=== PATIENT | male | born 1945 | race Two or more races ===

== ENCOUNTER → 2018-09-14 | Outpatient (CLI) | payer MEDICARE, BC | END | disposition home or self-care (01) | LOC: RT 10:05 | PROVIDERS: ATTEND Internal Medicine Pulmonary Disease | DX: J44.9 Chronic obstructive pulmonary disease, unspecified (principal) | CPT/HCPCS: 36600; 82805 ==

== ENCOUNTER → 2018-10-24 | Outpatient (CLI) | payer MEDICARE, BC ==
[~2018-10-24] MED LIST: ALBUTEROL SULF 2.5 MG/0.5ML(0.5%) NEB SOLN ONE
== END | disposition home or self-care (01) ==
LOC: RT 08:15
PROVIDERS: ATTEND Internal Medicine Pulmonary Disease
DX: J44.9 Chronic obstructive pulmonary disease, unspecified (principal)
CPT/HCPCS: 94060; J7611

== ENCOUNTER 2019-02-03 09:00 | Inpatient (IN) | payer MEDICARE, BC ==
[~2019-02-03] VITALS: Ht 180.3 cm; Wt 84.4 kg
[2019-02-03 09:42] LABS: White Blood Cell 26.5 10^3/uL (4.4-10.8)
[2019-02-03 09:44] LABS: Hematocrit 40.8 % (41.0-53.0); Hemoglobin 13.6 g/dL (13.5-17.5); Mean Corpuscular Hemoglobin 31.3 pg (28.0-32.0); Mean Corpuscular Hgb Conc. 33.4 g/dL (32.0-36.0); Mean Corpuscular Volume 93.8 fL (80.0-100.0); Platelet Count (auto) 537 10^3/uL (140-450); Red Blood Cells 4.35 10^6/uL (4.5-5.90); Red Cell Distribution Width 13.6 % (11.8-14.3)
[2019-02-03 09:46] LABS: Band Neutrophils % (manual) 0; Basophils % (manual) 0 (0.0-2.0); Blast Cells 0; Myelocytes % 0; Promyelocytes % 0; Reactive Lymphocytes 0
[2019-02-03 09:57] LABS: Alanine Aminotransferase 41 U/L (16-61); Albumin 2.6 g/dL (3.4-5.0); Anion Gap 12 (5-15); Aspartate Aminotransferase 26 U/L (15-37); BUN/Creatinine Ratio 19.2; Blood Urea Nitrogen 24 mg/dL (7-18); Calcium 9.1 mg/dL (8.5-10.1); Carbon Dioxide 21 mmol/L (21-32); Chloride 98 mmol/L (98-107); GFR African American 73 mL/min; GFR Non-African American 60 mL/min; Glucose 94 mg/dL (74-106); Potassium 4.6 mmol/L (3.5-5.1); Sodium 131 mmol/L (136-145)
[2019-02-03] MEDS ORDERED: ASPirin 81 mg TAB PO ONE (10:00)
[2019-02-03] MEDS ORDERED: PIPERACILLIN-TAZOB 3.375GM 100 ML IV ONE (10:00)
[2019-02-03 10:01] LABS: Eosinophils % (manual) 1 (0-7); Lymphocytes % (manual) 6 (10.0-50.0); Metamyelocytes % 1; Monocytes % (manual) 4 (0-12)
[2019-02-03 10:02] LABS: Alkaline Phosphatase 99 U/L (45-117); Bilirubin, Total 0.7 mg/dL (0.2-1.0); Total Protein 7.8 g/dL (6.4-8.2)
[2019-02-03 10:16] LABS: INR 1.48 (0.9-1.15)
[2019-02-03] MEDS ORDERED: PROMETHAZINE HCL 25 MG/ML 1ML IV PRN (13:30)
[2019-02-03] MEDS ORDERED: DEXTROSE (50%) 50ML SYRG IV PRN (13:30)
[2019-02-03] MEDS ORDERED: NITROGLYCERIN 0.4 MG SL TAB SL PRN (13:30)
[2019-02-03] MEDS ORDERED: MORPHINE SULF INJ 2 MG/ML SYRINGE 1ML IV PRN ×2 (13:30→16:00)
[2019-02-03] MEDS ORDERED: MORPHINE SULFATE 4 MG/ML SYR/VIAL IV PRN (13:30)
[2019-02-03] MEDS ORDERED: cefTRIAXone 1GM/50ML D5W 50 ML IV ONE (13:30)
[2019-02-03 13:38] VITALS: BP 124/60
[2019-02-03] MEDS: SODIUM CHLORIDE 0.9% 1,000 ML IV SCH ×2 (14:49→23:54)
[2019-02-03] MEDS: metroNIDAZOLE 500MG/100ML 100 ML IV SCH ×2 (15:02→21:36)
--- NOTE | 2019-02-03 15:20 | NUR ---
Telemetry admit from ER GIOVANI DICKERSON admitted to Telemetry unit after SBAR received. Patient oriented to LILLIANA SHULTZRN primary RN, unit, room, bed, and unit policies regarding patient care and visiting hours. Patient now on continuous telemetry monitoring, tele box # 37 and telemetry reading on arrival to unit is NSR 82BPM. Patient placed on bedside oxygen 2L n/c, weighed by bedscale and encouraged to call if they need something with call light within reach. Bed in low/locked position, bed rails up x2. All questions and concerns addressed, patient verbalized understanding.
[2019-02-03] MEDS ORDERED: METO25TA5 PO (16:03)
[2019-02-03] MEDS ORDERED: GABA300C10 PO (16:03)
[2019-02-03] MEDS ORDERED: ROSU10TA16 PO (16:03)
[2019-02-03] MEDS ORDERED: OMEP20TA PO (16:03)
[2019-02-03] MEDS ORDERED: CHOL20007 PO (16:03)
[2019-02-03] MEDS ORDERED: TAMS0.4C36 PO (16:03)
[2019-02-03] MEDS ORDERED: PAR20T PO (16:03)
[2019-02-03] MEDS ORDERED: LISI-706 PO (16:03)
[2019-02-03] MEDS ORDERED: IPRIH IN (16:03)
[2019-02-03] MEDS ORDERED: METF-370 PO (16:03)
[2019-02-03] MEDS: InsuLIN REG 1unit/0.01ml Soln (100units/ml) SC SCH ×2 (16:45→21:38)
[2019-02-03] MEDS: traMADol HCL 50 MG TAB PO PRN (16:53)
[2019-02-03 17:00] VITALS: BP 131/52
[2019-02-03] MEDS: ACCU-CHEK COMFORT CURVE STRIP VI SCH ×2 (17:00→21:39)
[2019-02-03] MEDS ORDERED: ALBU108A5 IN (18:09)
[2019-02-03] MEDS ORDERED: IPRAAER6 IN (18:09)
[2019-02-03] MEDS: ALBUTEROL SULF 2.5 MG/0.5ML(0.5%) NEB SOLN NEB PRN (19:29)
[2019-02-03] MEDS: ACETAMINOPHEN 500 MG TAB PO PRN (20:10)
[2019-02-03] MEDS: TEMAZEPAM 15 MG CAP PO PRN (21:39)
[2019-02-03 22:19] VITALS: BP 129/83
[2019-02-04] MEDS: ALBUTEROL SULF 2.5 MG/0.5ML(0.5%) NEB SOLN NEB PRN ×2 (03:50→15:54)
[2019-02-04 05:24] VITALS: BP 140/67
[2019-02-04 06:13] LABS: Basophils # (auto) 0 uL; Basophils % (auto) 0.2 % (0.0-2.0); Eosinophils # (auto) 0.2 uL; Hematocrit 35.8 % (41.0-53.0); Hemoglobin 12.1 g/dL (13.5-17.5); Lymphocytes # (auto) 1.5 uL; Lymphocytes % (auto) 8.3 % (10.0-50.0); Mean Corpuscular Hgb Conc. 33.9 g/dL (32.0-36.0); Mean Corpuscular Volume 94.2 fL (80.0-100.0); Monocytes # (auto) 1.7 uL; Monocytes % (auto) 9.5 % (0.0-12.0); Neutrophils # (auto) 14.8 uL; Platelet Count (auto) 500 10^3/uL (140-450); Red Cell Distribution Width 13.4 % (11.8-14.3); White Blood Cell 18.3 10^3/uL (4.4-10.8)
[2019-02-04] MEDS: metroNIDAZOLE 500MG/100ML 100 ML IV SCH ×3 (06:13→21:28)
[2019-02-04] MEDS: InsuLIN REG 1unit/0.01ml Soln (100units/ml) SC SCH ×4 (06:14→21:28)
[2019-02-04] MEDS: ACCU-CHEK COMFORT CURVE STRIP VI SCH ×4 (06:14→21:28)
[2019-02-04] MEDS: traMADol HCL 50 MG TAB PO PRN ×3 (06:15→21:30)
[2019-02-04 06:20] LABS: Albumin 2.2 g/dL (3.4-5.0); BUN/Creatinine Ratio 18.5; Calcium 8.3 mg/dL (8.5-10.1); Potassium 4.2 mmol/L (3.5-5.1)
[2019-02-04 06:23] LABS: Bilirubin, Total 0.6 mg/dL (0.2-1.0); Total Protein 6.6 g/dL (6.4-8.2)
[2019-02-04 09:00] VITALS: BP 119/52
[2019-02-04] MEDS: SODIUM CHLORIDE 0.9% 1,000 ML IV SCH ×2 (09:00→11:00)
[2019-02-04] MEDS: cefTRIAXone 1GM/50ML D5W 50 ML IV SCH (09:19)
[2019-02-04] MEDS: PANTOPRAZOLE 40 MG TAB PO SCH (11:00)
[2019-02-04] MEDS: ALBUTEROL SULF 2.5 MG/0.5ML(0.5%) NEB SOLN NEB SCH ×2 (12:00→18:48)
[2019-02-04] MEDS: IPRATROPIUM BROM 0.5 MG/2.5ML INH SOL NEB SCH ×2 (12:00→18:48)
[2019-02-04] MEDS: PARoxetine 20 MG TAB PO SCH (12:53)
[2019-02-04] MEDS: GABAPENTIN 300 MG CAP PO SCH (12:53)
[2019-02-04 13:00] VITALS: BP 130/83
--- NOTE | 2019-02-04 15:55 | NUR ---
Respiratory note: PATIENT SEEN FOR PRN TX. HE WAS COMPLAINING OF SOB; PRN MED-NEB ADMINISTERED AT THIS TIME.
[2019-02-04 17:00] VITALS: BP 139/73
[2019-02-04] MEDS: TAMSULOSIN HYDROCHLORIDE 0.4 MG CAP PO SCH (18:44)
--- NOTE | 2019-02-04 20:20 | NUR ---
RECEIVE IN BED IS TRYING TO GET COMFORTABLE N WITH MINIMAL SOB IS ON OXYGEN
[2019-02-04] MEDS: TEMAZEPAM 15 MG CAP PO PRN (21:29)
[2019-02-04 22:34] VITALS: BP 130/57
[2019-02-05] MEDS: SODIUM CHLORIDE 0.9% 1,000 ML IV SCH (01:30)
[2019-02-05 05:00] VITALS: BP 131/71
[2019-02-05] MEDS: metroNIDAZOLE 500MG/100ML 100 ML IV SCH ×3 (05:42→21:33)
[2019-02-05] MEDS: ALBUTEROL SULF 2.5 MG/0.5ML(0.5%) NEB SOLN NEB SCH ×3 (06:17→19:23)
[2019-02-05] MEDS: IPRATROPIUM BROM 0.5 MG/2.5ML INH SOL NEB SCH ×3 (06:17→19:24)
[2019-02-05] MEDS: InsuLIN REG 1unit/0.01ml Soln (100units/ml) SC SCH ×4 (06:30→21:34)
[2019-02-05] MEDS: ACCU-CHEK COMFORT CURVE STRIP VI SCH ×4 (06:30→21:34)
[2019-02-05 07:05] LABS: Basophils # (auto) 0.1 uL; Eosinophils # (auto) 0.2 uL; Hemoglobin 11.6 g/dL (13.5-17.5)
[2019-02-05 07:08] LABS: Basophils % (auto) 0.6 % (0.0-2.0); Eosinophils % (auto) 1.2 % (0.0-7.0); Hematocrit 34.3 % (41.0-53.0); Lymphocytes % (auto) 7.8 % (10.0-50.0); Mean Corpuscular Hemoglobin 31.7 pg (28.0-32.0); Mean Corpuscular Hgb Conc. 33.8 g/dL (32.0-36.0); Mean Corpuscular Volume 93.6 fL (80.0-100.0); Monocytes # (auto) 1.1 uL; Monocytes % (auto) 8.6 % (0.0-12.0); Neutrophils # (auto) 10.6 uL; Neutrophils % (auto) 81.8 % (37.0-80.0); Platelet Count (auto) 464 10^3/uL (140-450); Red Blood Cells 3.67 10^6/uL (4.5-5.90); Red Cell Distribution Width 13.6 % (11.8-14.3)
[2019-02-05 07:23] LABS: BUN/Creatinine Ratio 14.6; Calcium 8.7 mg/dL (8.5-10.1); Potassium 4.1 mmol/L (3.5-5.1)
--- NOTE | 2019-02-05 08:10 | NUR ---
Opening Shift Note received report on the patient. Awake lying in bed. Patient shows no signs of distress at this time. Discussed plan of care with the patient. Bed in lowest position, side rails upX2, and call light is within reach.
[2019-02-05] MEDS: cefTRIAXone 1GM/50ML D5W 50 ML IV SCH (09:38)
[2019-02-05] MEDS: PANTOPRAZOLE 40 MG TAB PO SCH (09:39)
[2019-02-05] MEDS: PARoxetine 20 MG TAB PO SCH (09:39)
[2019-02-05] MEDS: GABAPENTIN 300 MG CAP PO SCH (09:39)
[2019-02-05] MEDS: ACETAMINOPHEN 500 MG TAB PO PRN ×2 (09:49→20:13)
[2019-02-05 09:51] VITALS: BP 120/74
[2019-02-05] MEDS ORDERED: ACETAMINOPHEN 500 MG TAB PO PRN (11:15)
--- NOTE | 2019-02-05 11:54 | NUR ---
IV Patient pulled IV out.
--- NOTE | 2019-02-05 11:56 | NUR ---
IV insertion IV access obtained, via clean sterile technique by inserting 22 gauge catheter at left forearm after 1 attempt. IV secured properly. No trauma to site. Patient tolerated well.
[2019-02-05] MEDS ORDERED: LISINOPRIL 10 MG TAB PO ONE (12:45)
[2019-02-05] MEDS ORDERED: ASPirin 81 mg TAB PO ONE (12:45)
[2019-02-05 13:02] LABS: Magnesium 2.1 mg/dL (1.6-2.6)
[2019-02-05 14:19] VITALS: BP 125/70
[2019-02-05 16:38] VITALS: BP 135/94
[2019-02-05] MEDS: TAMSULOSIN HYDROCHLORIDE 0.4 MG CAP PO SCH (17:45)
--- NOTE | 2019-02-05 19:45 | NUR ---
ASSUMED CARE, PT. AWAKE, NO C/O PAIN, NO SOB.
[2019-02-05] MEDS: ATORVASTATIN 20 MG TAB PO SCH (21:33)
[2019-02-05 22:57] VITALS: BP 140/74
[2019-02-06] VITALS (7 sets, daily range): BP systolic 113–137; BP diastolic 69–87
[2019-02-06] MEDS: metroNIDAZOLE 500MG/100ML 100 ML IV SCH ×3 (05:33→21:18)
[2019-02-06] MEDS: ALBUTEROL SULF 2.5 MG/0.5ML(0.5%) NEB SOLN NEB SCH ×3 (05:48→18:49)
[2019-02-06] MEDS: IPRATROPIUM BROM 0.5 MG/2.5ML INH SOL NEB SCH ×3 (05:48→18:49)
[2019-02-06 06:03] LABS: Basophils # (auto) 0.1 uL; Eosinophils # (auto) 0.3 uL; Eosinophils % (auto) 2.3 % (0.0-7.0); Hemoglobin 12.7 g/dL (13.5-17.5); Lymphocytes # (auto) 1.3 uL; Lymphocytes % (auto) 10.5 % (10.0-50.0); Mean Corpuscular Hemoglobin 31.3 pg (28.0-32.0); Mean Corpuscular Hgb Conc. 33.5 g/dL (32.0-36.0); Mean Corpuscular Volume 93.7 fL (80.0-100.0); Monocytes # (auto) 1.1 uL; Monocytes % (auto) 8.7 % (0.0-12.0); Neutrophils # (auto) 9.6 uL; Neutrophils % (auto) 77.5 % (37.0-80.0); Nucleated Red Blood Cells % 0.1 %; Platelet Count (auto) 598 10^3/uL (140-450); Red Blood Cells 4.05 10^6/uL (4.5-5.90); Red Cell Distribution Width 13.6 % (11.8-14.3); White Blood Cell 12.4 10^3/uL (4.4-10.8)
[2019-02-06] MEDS: InsuLIN REG 1unit/0.01ml Soln (100units/ml) SC SCH ×4 (06:05→21:19)
[2019-02-06] MEDS: ACCU-CHEK COMFORT CURVE STRIP VI SCH ×4 (06:05→21:19)
[2019-02-06 06:21] LABS: Calcium 8.7 mg/dL (8.5-10.1); Potassium 4.4 mmol/L (3.5-5.1)
[2019-02-06 06:24] LABS: BUN/Creatinine Ratio 14.6
--- NOTE | 2019-02-06 07:30 | NUR ---
Open Shift Note Received report on patient, awake and sitting up in bed. Discussed POC with patient and plans for stress test. Patient aware they are to remain NPO. Bed in lowest locked position, side rails up x2 and call light within reach. Will continue to monitor.
[2019-02-06] MEDS ORDERED: ADENOSINE 73 MG in GIVE UN-DILUTED 0 ML IV STA (08:28)
[2019-02-06] MEDS ORDERED: traMADol HCL 50 MG TAB PO PRN (11:45)
[2019-02-06] MEDS: cefTRIAXone 1GM/50ML D5W 50 ML IV SCH (12:24)
[2019-02-06] MEDS: ASPirin 81 mg TAB PO SCH (12:36)
[2019-02-06] MEDS: PARoxetine 20 MG TAB PO SCH (12:36)
[2019-02-06] MEDS: PANTOPRAZOLE 40 MG TAB PO SCH (12:36)
[2019-02-06] MEDS: GABAPENTIN 300 MG CAP PO SCH (12:36)
[2019-02-06] MEDS: traMADol HCL 50 MG TAB PO PRN ×2 (12:38→21:20)
[2019-02-06] MEDS: LISINOPRIL 10 MG TAB PO SCH (12:38)
--- NOTE | 2019-02-06 14:53 | NUR ---
Nutrition Assessment Notes please see attached link for complete assessment Est. Needs BW 86 [id number] kcal (23-25 kcal/kgBW), 86-103 gms pro (1.0-1.2 gms/kgBW r/t severe hypoalb). Will continue to monitor pertinent labs and reassess nutrient need prn Addendum: 02/06/19 at [address] Amended: Links added.
--- NOTE | 2019-02-06 15:31 | NUR ---
Son Will Business Process Manager Tomorrow Patient's son Rachid stated he will take a half day of work and come pick up driver the patient in the later afternoon "around 1 or 2".
--- NOTE | 2019-02-06 15:50 | NUR ---
PT ASKED TO SKIP P.T TODAY. JETHRO HCAVEZ WAS NOTIFIED. Addendum: 02/06/19 at 1551 by LANDY PETERSON PTT Amended: Links added.
--- NOTE | 2019-02-06 16:19 | NUR ---
assessment Patient is a 73 year old male who is alert and oriented. Patients cognitive abilities are intact. Prior to admission patient lived home with his and functioned independently. Patient informed me he is able to care for his own ADLs. Per patient he will return home with his brother and sister in law on discharge. Patient informed me until his returns home from her cruise to [place] she will stay with his in laws. Patient has a rollator and home 02 for home use. Patients PCP is Dr Mccall. Patient has refused SNF and home health. I informed patient he has a right to speak to a manager social services regarding all care. I informed patient he has a right to participate in any and all discharge planning. Patient has a POA and advanced directive. Patient verbalized understanding and agreed to discharge plan. Addendum: 02/06/19 at 1622 by Natalie HANKINS Amended: Links added.
[2019-02-06] MEDS: TAMSULOSIN HYDROCHLORIDE 0.4 MG CAP PO SCH (18:20)
--- NOTE | 2019-02-06 19:45 | NUR ---
assumed care, pt. awake, no c/o headache at this time, no sob.
[2019-02-06] MEDS: ATORVASTATIN 20 MG TAB PO SCH (21:19)
[2019-02-07 05:00] VITALS: BP 135/77
[2019-02-07] MEDS: metroNIDAZOLE 500MG/100ML 100 ML IV SCH ×2 (05:31→13:55)
[2019-02-07] MEDS: InsuLIN REG 1unit/0.01ml Soln (100units/ml) SC SCH ×2 (06:11→11:25)
[2019-02-07] MEDS: IPRATROPIUM BROM 0.5 MG/2.5ML INH SOL NEB SCH ×2 (06:11→12:12)
[2019-02-07] MEDS: ALBUTEROL SULF 2.5 MG/0.5ML(0.5%) NEB SOLN NEB SCH ×2 (06:11→12:12)
[2019-02-07] MEDS: ACCU-CHEK COMFORT CURVE STRIP VI SCH ×2 (06:12→11:25)
--- NOTE | 2019-02-07 07:45 | NUR ---
Patient sitting in bed, awake, oriented x4, no acute distress noted. Patient stated he's going home today, his son will pick him up today between 1:00 pm to 2:00 pm today. Waiting for MD to come over to see the patient.
[2019-02-07] MEDS: cefTRIAXone 1GM/50ML D5W 50 ML IV SCH (08:17)
[2019-02-07 09:00] VITALS: BP 120/61
[2019-02-07] MEDS: ASPirin 81 mg TAB PO SCH (09:11)
[2019-02-07] MEDS: GABAPENTIN 300 MG CAP PO SCH (09:11)
[2019-02-07] MEDS: PARoxetine 20 MG TAB PO SCH (09:12)
[2019-02-07] MEDS: PANTOPRAZOLE 40 MG TAB PO SCH (09:12)
[2019-02-07] MEDS: LISINOPRIL 10 MG TAB PO SCH (09:12)
--- NOTE | 2019-02-07 10:50 | NUR ---
Patient refused Physical Therapy. Walker from home at bedside.
--- NOTE | 2019-02-07 11:16 | NUR ---
PATIENT REFUSED PHYSICAL THERAPY TODAY. JETHRO SALVADOR WAS NOTIFIED. Addendum: 02/07/19 at 1117 by LANDY PETERSON PTT Amended: Links added.
--- NOTE | 2019-02-07 11:30 | NUR ---
Patient in his civilian clothes, stated his son is on his way to coke over. Patient made aware the doctor is already at the hospital. Waiting for the MD to come over. Addendum: 02/07/19 at 1145 by Samantha Srinivasan RN son on his way to come over
--- NOTE | 2019-02-07 12:49 | NUR ---
Patient asked where is the doctor, stated he's ready to go home. Son at bedside. Explained to patient and son that the doctor is attending to an emergency situation at this time. Patient willing to wait for the doctor to come over.
[2019-02-07 13:32] VITALS: BP 120/61
--- NOTE | 2019-02-07 13:41 | NUR ---
Three inhalers returned to patient. Patient signed the POM form. Son at bedside. Informed the patient the discharge papers are getting prepared.
--- NOTE | 2019-02-07 14:07 | NUR ---
Discharge instructions given as ordered. Encourage to follow up with PMD as instructed. All questions and concerns addressed. Patient verbalized understanding. Medication reconciliation form completed and copy given to patient. Home medications held in Pharmacy returned to patient. IV removed with catheter intact, pressure dressing applied. Telemetry unit returned to ICU. Patient taken to vehicle via wheelchair with all personal belongings (including three inhalers, front wheel walker), accompanied by staff and family member. No distress noted at time of departure.
== END 2019-02-07 14:10 | disposition home or self-care (01) | DRG 872 ==
LOC: ER 09:00 → OVERFLOW 09:01 → CENTRAL 15:11 → TELE-CENTR 16:35
PROVIDERS: ADMIT Internal Medicine; ATTEND Internal Medicine
DX: A41.9 Sepsis, unspecified organism (principal); D68.9 Coagulation defect, unspecified; J96.10 Chronic respiratory failure, unspecified whether with hypoxia or hypercapnia; E44.0 Moderate protein-calorie malnutrition; K57.32 Diverticulitis of large intestine without perforation or abscess without bleeding; J44.9 Chronic obstructive pulmonary disease, unspecified; N40.0 Benign prostatic hyperplasia without lower urinary tract symptoms; E78.5 Hyperlipidemia, unspecified; M16.12 Unilateral primary osteoarthritis, left hip; I10 Essential (primary) hypertension; K76.0 Fatty (change of) liver, not elsewhere classified; E11.42 Type 2 diabetes mellitus with diabetic polyneuropathy; Z90.89 Acquired absence of other organs; Z87.440 Personal history of urinary (tract) infections; Z90.49 Acquired absence of other specified parts of digestive tract; Z83.3 Family history of diabetes mellitus; Z80.1 Family history of malignant neoplasm of trachea, bronchus and lung; Z80.42 Family history of malignant neoplasm of prostate; Z80.8 Family history of malignant neoplasm of other organs or systems; Z87.891 Personal history of nicotine dependence; Z82.3 Family history of stroke; Z79.899 Other long term (current) drug therapy; Z68.26 Body mass index [BMI] 26.0-26.9, adult
CPT/HCPCS: 36415; 71045; 74176; 76705; 78452; 80048; 80053; 80061; 82962; 83036; 83605; 83690; 83735; 83880; 84484; 85007; 85025; 85027; 85379; 85610; 85730; 87040; 93005; 93017; 93306; 94640; 99291; G0378; J0153; J0696; J2543; J3490

== ENCOUNTER 2021-10-18 01:57 | Inpatient (IN) | payer MEDICARE, BC ==
[~2021-10-18] VITALS: Ht 180.3 cm; Wt 74.7 kg
[~2021-10-18 01:57] MED LIST changes: +ALBU108A5 IN; -ALBUTEROL SULF 2.5 MG/0.5ML(0.5%) NEB SOLN ONE; +CHOL20007 PO; +GABA300C10 PO; +IPRAAER6 IN; +IPRIH IN; +LISI-706 PO; +METF-370 PO; +METO25TA5 PO; +OMEP20TA PO; +PAR20T PO; +ROSU10TA16 PO; +TAMS0.4C36 PO
[2021-10-18] MEDS ORDERED: IPRATROPIUM BROM 0.5 MG/2.5ML INH SOL NEB ONE (02:30)
[2021-10-18] MEDS ORDERED: DexAMETHasone SOD PHOS 10MG/1ML VIAL INJ IV ONE (02:30)
[2021-10-18] MEDS ORDERED: CEFEPIME 1GM/ 50ML 50 ML IV ONE (02:30)
[2021-10-18] MEDS ORDERED: MAGNESIUM SULFATE 1GM/100ML 100 ML IV ONE (02:30)
[2021-10-18] MEDS ORDERED: ACETAMINOPHEN 325 MG TAB PO ONE (02:30)
[2021-10-18] MEDS ORDERED: ALBUTEROL SULF 2.5 MG/0.5ML(0.5%) NEB SOLN NEB ONE (02:30)
[2021-10-18] MEDS ORDERED: VANCOMYCIN 1GM/250ML 250 ML IV ONE (02:30)
[2021-10-18] MEDS ORDERED: SODIUM CHLORIDE 0.9% 2,000 ML IV ONE (02:30)
[2021-10-18 03:17] LABS: Basophils # (auto) 0 10 ^3/uL (0-0.2); Basophils % (auto) 0.1 % (0.0-2.0); Eosinophils # (auto) 0.2 10 ^3/uL (0-0.8); Eosinophils % (auto) 1.8 % (0.0-7.0); Hematocrit 40.1 % (41.0-53.0); Hemoglobin 13.6 g/dL (13.5-17.5); Lymphocytes # (auto) 0.8 10 ^3/uL (0.4-5.4); Lymphocytes % (auto) 6.5 % (10.0-50.0); Mean Corpuscular Hemoglobin 31.7 pg (28.0-32.0); Mean Corpuscular Hgb Conc. 33.9 g/dL (32.0-36.0); Mean Corpuscular Volume 93.7 fL (80.0-100.0); Monocytes # (auto) 1.4 10 ^3/uL (0-1.3); Monocytes % (auto) 10.7 % (0.0-12.0); Neutrophils # (auto) 10.3 10 ^3/uL (1.6-8.6); Neutrophils % (auto) 80.9 % (37.0-80.0); Nucleated Red Blood Cells % 0.1 %; Red Blood Cells 4.28 10^6/uL (4.5-5.90); Red Cell Distribution Width 13.7 % (11.8-14.3); White Blood Cell 12.8 10^3/uL (4.4-10.8)
[2021-10-18 03:27] LABS: Albumin 3.7 g/dL (3.4-5.0); BUN/Creatinine Ratio 14.8; Calcium 8.6 mg/dL (8.5-10.1); Potassium 4.3 mmol/L (3.5-5.1)
[2021-10-18 03:30] LABS: Bilirubin, Total 0.2 mg/dL (0.2-1.0); Total Protein 7.1 g/dL (6.4-8.2)
[2021-10-18] MEDS ORDERED: ASPirin 81 mg TAB PO ONE (04:00)
[2021-10-18] MEDS ORDERED: ALBUTEROL SULF 2.5 MG/0.5ML(0.5%) NEB SOLN NEB PRN (09:45)
[2021-10-18] MEDS ORDERED: MORPHINE SULFATE INJ 2 MG/ml SYRG IV PRN (09:45)
[2021-10-18] MEDS ORDERED: NITROGLYCERIN 0.4 MG SL TAB SL PRN (09:45)
[2021-10-18] MEDS ORDERED: IPRATROPIUM BROM 0.5 MG/2.5ML INH SOL NEB PRN (09:45)
[2021-10-18] MEDS ORDERED: ENOXAPARIN SOD 80 MG/0.8ML SYRINGE SC ONE (09:45)
[2021-10-18 10:19] VITALS: BP 135/68
[2021-10-18] MEDS: AZITHROMYCIN 500MG/ 250ML 250 ML IV SCH (10:28)
[2021-10-18] MEDS: PANTOPRAZOLE 40 MG/10 ML VIAL INJ IV SCH (10:28)
[2021-10-18 10:50] LABS: Cholesterol 99 mg/dL (< 200); HDL Cholesterol 35 mg/dL (40-59); LDL Cholesterol 62 mg/dL (< 100); Triglycerides 109 mg/dL (< 150)
[2021-10-18] MEDS: ALBUTEROL SULF 2.5 MG/0.5ML(0.5%) NEB SOLN NEB SCH ×2 (11:18→19:50)
[2021-10-18] MEDS: IPRATROPIUM BROM 0.5 MG/2.5ML INH SOL NEB SCH ×2 (11:18→19:51)
[2021-10-18 11:20] LABS: Urine Bacteria FEW /hpf (None Seen); Urine Blood Negative /uL (Negative); Urine WBC 2 /hpf (0 - 3)
[2021-10-18] MEDS: methylPREDNISolone SOD SUCC 40 MG/ML VL IV SCH ×2 (14:11→22:32)
[2021-10-19] VITALS (8 sets, daily range): BP systolic 118–181; BP diastolic 60–90
[2021-10-19] MEDS: hydrALAZINE HCL 20 MG/ML VL IV PRN ×2 (00:04→10:07)
[2021-10-19] MEDS: methylPREDNISolone SOD SUCC 40 MG/ML VL IV SCH ×3 (06:25→22:16)
[2021-10-19] MEDS: IPRATROPIUM BROM 0.5 MG/2.5ML INH SOL NEB SCH ×3 (07:02→18:34)
[2021-10-19] MEDS: ALBUTEROL SULF 2.5 MG/0.5ML(0.5%) NEB SOLN NEB SCH ×3 (07:02→18:34)
[2021-10-19] MEDS ORDERED: ASPirin 81 mg TAB PO ONE (07:30)
[2021-10-19] MEDS ORDERED: ATORVASTATIN 20 MG TAB PO ONE (07:30)
[2021-10-19 09:02] LABS: Basophils # (auto) 0 10 ^3/uL (0-0.2); Basophils % (auto) 0.1 % (0.0-2.0); Eosinophils # (auto) 0 10 ^3/uL (0-0.8); Hematocrit 38.9 % (41.0-53.0); Lymphocytes # (auto) 0.9 10 ^3/uL (0.4-5.4); Lymphocytes % (auto) 9.1 % (10.0-50.0); Mean Corpuscular Hemoglobin 31.3 pg (28.0-32.0); Mean Corpuscular Hgb Conc. 33.6 g/dL (32.0-36.0); Mean Corpuscular Volume 93.2 fL (80.0-100.0); Monocytes # (auto) 1.2 10 ^3/uL (0-1.3); Monocytes % (auto) 11.8 % (0.0-12.0); Neutrophils # (auto) 7.9 10 ^3/uL (1.6-8.6); Red Blood Cells 4.17 10^6/uL (4.5-5.90); Red Cell Distribution Width 13.5 % (11.8-14.3)
[2021-10-19 09:14] LABS: Albumin 3.3 g/dL (3.4-5.0); Calcium 8.7 mg/dL (8.5-10.1); Magnesium 2.2 mg/dL (1.6-2.6); Potassium 3.8 mmol/L (3.5-5.1)
[2021-10-19] MEDS: cefTRIAXone 1GM/50ML D5W 50 ML IV SCH (09:14)
[2021-10-19 09:18] LABS: Bilirubin, Total 0.2 mg/dL (0.2-1.0); Total Protein 6.7 g/dL (6.4-8.2)
[2021-10-19] MEDS: FUROSEMIDE 20 MG/2 ML VIAL IV SCH ×2 (09:34→10:14)
[2021-10-19] MEDS ORDERED: GABA-339 PO (09:43)
[2021-10-19] MEDS ORDERED: ENOXAPARIN SOD 40 MG/0.4 ML SYRINGE SC SCH (10:00)
[2021-10-19] MEDS: PANTOPRAZOLE 40 MG/10 ML VIAL INJ IV SCH (10:14)
[2021-10-19] MEDS: AZITHROMYCIN 500MG/ 250ML 250 ML IV SCH (12:32)
[2021-10-19] MEDS ORDERED: AMIODARONE HCL 150 MG in D5W 5% 100 ML IV ONE (14:15)
[2021-10-19] MEDS ORDERED: ADENOSINE 6 MG/2 ML INJ IV ONE ×2 (14:15→14:30)
[2021-10-19] MEDS ORDERED: AMIODARONE HCL (50 MG/ ML) 3 ML VIAL IV ONE (14:18)
[2021-10-19] MEDS ORDERED: AMIODARONE 450mg/250ml AE 250 ML IV ONE (14:18)
[2021-10-19] MEDS ORDERED: METOPROLOL TARTRATE 1MG/1ML-5ML VIAL IV ONE ×2 (14:22→14:30)
[2021-10-19] MEDS ORDERED: AMIODARONE 450mg/250ml AE 250 ML IV SCH (14:30)
[2021-10-19 15:22] LABS: Basophils # (auto) 0 10 ^3/uL (0-0.2); Basophils % (auto) 0.2 % (0.0-2.0); Eosinophils # (auto) 0 10 ^3/uL (0-0.8); Hemoglobin 15.1 g/dL (13.5-17.5); Lymphocytes # (auto) 1.4 10 ^3/uL (0.4-5.4); Lymphocytes % (auto) 8.8 % (10.0-50.0); Mean Corpuscular Hemoglobin 30.2 pg (28.0-32.0); Mean Corpuscular Hgb Conc. 32.1 g/dL (32.0-36.0); Monocytes # (auto) 2.4 10 ^3/uL (0-1.3); Monocytes % (auto) 15.6 % (0.0-12.0); Neutrophils # (auto) 11.8 10 ^3/uL (1.6-8.6); Neutrophils % (auto) 75.4 % (37.0-80.0); Nucleated Red Blood Cells % 0.4 %; Red Blood Cells 5.01 10^6/uL (4.5-5.90); Red Cell Distribution Width 13.7 % (11.8-14.3); White Blood Cell 15.6 10^3/uL (4.4-10.8)
[2021-10-19 15:32] LABS: Potassium 4.1 mmol/L (3.5-5.1)
[2021-10-19 15:33] LABS: BUN/Creatinine Ratio 17.2
[2021-10-19 16:34] LABS: Magnesium 2.1 mg/dL (1.6-2.6)
[2021-10-19] MEDS ORDERED: ENOXAPARIN SOD 80 MG/0.8ML SYRINGE SC ONE (17:15)
[2021-10-19] MEDS: ATORVASTATIN 20 MG TAB PO SCH (22:16)
[2021-10-20 05:00] VITALS: BP 149/89
[2021-10-20 05:49] LABS: Basophils # (auto) 0 10 ^3/uL (0-0.2); Basophils % (auto) 0.1 % (0.0-2.0); Eosinophils # (auto) 0 10 ^3/uL (0-0.8); Hematocrit 48.3 % (41.0-53.0); Hemoglobin 15.3 g/dL (13.5-17.5); Lymphocytes # (auto) 1.4 10 ^3/uL (0.4-5.4); Lymphocytes % (auto) 12.5 % (10.0-50.0); Mean Corpuscular Hemoglobin 30.1 pg (28.0-32.0); Mean Corpuscular Hgb Conc. 31.6 g/dL (32.0-36.0); Mean Corpuscular Volume 95.3 fL (80.0-100.0); Monocytes % (auto) 8.9 % (0.0-12.0); Neutrophils # (auto) 8.8 10 ^3/uL (1.6-8.6); Neutrophils % (auto) 78.5 % (37.0-80.0); Nucleated Red Blood Cells % 0.1 %; Red Blood Cells 5.07 10^6/uL (4.5-5.90); Red Cell Distribution Width 14.1 % (11.8-14.3); White Blood Cell 11.2 10^3/uL (4.4-10.8)
[2021-10-20] MEDS: ALBUTEROL SULF 2.5 MG/0.5ML(0.5%) NEB SOLN NEB SCH ×3 (06:08→19:35)
[2021-10-20] MEDS: IPRATROPIUM BROM 0.5 MG/2.5ML INH SOL NEB SCH ×3 (06:08→19:35)
[2021-10-20] MEDS: methylPREDNISolone SOD SUCC 40 MG/ML VL IV SCH ×3 (06:13→22:30)
[2021-10-20 06:22] LABS: Calcium 8.8 mg/dL (8.5-10.1); Chloride 104 mmol/L (98-107); Potassium 4.6 mmol/L (3.5-5.1); Sodium 136 mmol/L (136-145)
[2021-10-20 06:25] LABS: Anion Gap 12 (5-15); Blood Urea Nitrogen 27 mg/dL (7-18); Carbon Dioxide 20 mmol/L (21-32); GFR African American 85 mL/min; GFR Non-African American 71 mL/min; Glucose 114 mg/dL (74-106); Magnesium 2.5 mg/dL (1.6-2.6)
[2021-10-20] MEDS: cefTRIAXone 1GM/50ML D5W 50 ML IV SCH (08:56)
[2021-10-20 09:00] VITALS: BP 160/73
[2021-10-20] MEDS: PANTOPRAZOLE 40 MG/10 ML VIAL INJ IV SCH (10:00)
[2021-10-20] MEDS: ASPirin 81 mg TAB PO SCH (10:00)
[2021-10-20] MEDS: LISINOPRIL 10 MG TAB PO SCH (10:00)
[2021-10-20] MEDS: AZITHROMYCIN 500MG/ 250ML 250 ML IV SCH ×2 (10:06→14:23)
[2021-10-20 10:48] LABS: INR 0.97 (0.9-1.15); Partial Thromboplastin Time 31.8 sec (24.6-33.4)
[2021-10-20] MEDS ORDERED: LIDOCAINE 2%HCL (LOCAL ANESTH.) INJ 10ml MDV ONE (11:08)
[2021-10-20] MEDS ORDERED: VERAPAMIL 2.5MG/ML INJ 2ML VIAL IV ONE (11:23)
[2021-10-20] MEDS ORDERED: fentaNYL CITRATE 100 MCG/2 ML VL ONE (11:23)
[2021-10-20] MEDS ORDERED: ANGIOMAX 250 MG VIAL IV ONE (11:23)
[2021-10-20] MEDS ORDERED: HEPARIN SODIUM (PORCINE) 5000 UNITS/ML 1ML VIAL ONE ×2 (11:23→12:22)
[2021-10-20] MEDS ORDERED: MIDAZOLAM HCL 2MG/2ML 2ml VIAL (1mg/ml) ONE (11:23)
[2021-10-20] MEDS ORDERED: SODIUM CHL 0.9% 0 ML ONE (11:24)
[2021-10-20 17:00] VITALS: BP 140/95
[2021-10-20 22:00] VITALS: BP 134/86
[2021-10-20] MEDS: ATORVASTATIN 20 MG TAB PO SCH (22:30)
[2021-10-21] VITALS (7 sets, daily range): BP systolic 116–139; BP diastolic 71–83
[2021-10-21] MEDS: IPRATROPIUM BROM 0.5 MG/2.5ML INH SOL NEB SCH ×3 (06:21→19:50)
[2021-10-21] MEDS: ALBUTEROL SULF 2.5 MG/0.5ML(0.5%) NEB SOLN NEB SCH ×3 (06:22→19:50)
[2021-10-21] MEDS: FUROSEMIDE 20 MG/2 ML VIAL IV SCH (08:29)
[2021-10-21] MEDS: cefTRIAXone 1GM/50ML D5W 50 ML IV SCH (08:29)
[2021-10-21] MEDS: methylPREDNISolone SOD SUCC 40 MG/ML VL IV SCH ×2 (08:30→22:29)
[2021-10-21] MEDS: PANTOPRAZOLE 40 MG/10 ML VIAL INJ IV SCH (08:30)
[2021-10-21] MEDS: ASPirin 81 mg TAB PO SCH (08:30)
[2021-10-21] MEDS: LISINOPRIL 10 MG TAB PO SCH (08:31)
[2021-10-21] MEDS: APIXABAN 5 MG TAB PO SCH ×2 (10:10→22:29)
[2021-10-21] MEDS: ACETAMINOPHEN 325 MG TAB PO PRN ×2 (10:10→18:16)
[2021-10-21] MEDS: AMIODARONE HCL 200 MG TAB PO SCH ×2 (10:10→22:28)
[2021-10-21] MEDS: AZITHROMYCIN 500MG/ 250ML 250 ML IV SCH (10:11)
[2021-10-21] MEDS: CARVEDILOL 3.125 MG TAB PO SCH ×2 (10:11→22:28)
[2021-10-21] MEDS: ATORVASTATIN 20 MG TAB PO SCH (22:28)
[2021-10-22 05:00] VITALS: BP 131/63
[2021-10-22] MEDS: ALBUTEROL SULF 2.5 MG/0.5ML(0.5%) NEB SOLN NEB SCH ×3 (07:12→18:58)
[2021-10-22] MEDS: IPRATROPIUM BROM 0.5 MG/2.5ML INH SOL NEB SCH ×3 (07:12→18:59)
[2021-10-22] MEDS: methylPREDNISolone SOD SUCC 40 MG/ML VL IV SCH ×2 (08:59→21:34)
[2021-10-22] MEDS: cefTRIAXone 1GM/50ML D5W 50 ML IV SCH (08:59)
[2021-10-22] MEDS: FUROSEMIDE 20 MG/2 ML VIAL IV SCH (08:59)
[2021-10-22 09:00] VITALS: BP 124/76
[2021-10-22] MEDS: ASPirin 81 mg TAB PO SCH (09:00)
[2021-10-22] MEDS: AMIODARONE HCL 200 MG TAB PO SCH (09:00)
[2021-10-22] MEDS: APIXABAN 5 MG TAB PO SCH ×2 (09:00→21:35)
[2021-10-22] MEDS: LISINOPRIL 10 MG TAB PO SCH (09:00)
[2021-10-22] MEDS: ACETAMINOPHEN 325 MG TAB PO PRN (09:01)
[2021-10-22] MEDS: CARVEDILOL 3.125 MG TAB PO SCH ×2 (09:05→21:35)
[2021-10-22] MEDS: AZITHROMYCIN 500MG/ 250ML 250 ML IV SCH (10:32)
[2021-10-22] MEDS: DRONEDARONE HCL 400 MG TAB PO SCH ×2 (10:33→21:34)
[2021-10-22 12:34] VITALS: BP 134/80
[2021-10-22] MEDS: PANTOPRAZOLE 40 MG/10 ML VIAL INJ IV SCH (12:43)
[2021-10-22] MEDS ORDERED: POLYETHYLENE GLYCOL 17 GM PWDR PO ONE (16:00)
[2021-10-22 16:36] VITALS: BP 122/82
[2021-10-22] MEDS: ATORVASTATIN 20 MG TAB PO SCH (21:34)
[2021-10-22 22:17] VITALS: BP 139/73
[2021-10-23 04:38] VITALS: BP 103/61
[2021-10-23] MEDS: ALBUTEROL SULF 2.5 MG/0.5ML(0.5%) NEB SOLN NEB SCH ×2 (06:33→13:15)
[2021-10-23] MEDS: IPRATROPIUM BROM 0.5 MG/2.5ML INH SOL NEB SCH ×2 (06:33→13:15)
[2021-10-23] MEDS ORDERED: CAR3125T PO (07:46)
[2021-10-23] MEDS ORDERED: ALB5IS NEB (07:46)
[2021-10-23] MEDS ORDERED: APIX5TAB PO (07:46)
[2021-10-23] MEDS ORDERED: DRON400T PO (07:46)
[2021-10-23] MEDS ORDERED: DOXY-286 PO (07:46)
[2021-10-23] MEDS ORDERED: LISI-716 PO (07:46)
[2021-10-23 08:00] VITALS: BP 126/59
[2021-10-23 09:00] VITALS: BP 126/59
[2021-10-23] MEDS: CARVEDILOL 3.125 MG TAB PO SCH (10:00)
[2021-10-23] MEDS: cefTRIAXone 1GM/50ML D5W 50 ML IV SCH (10:44)
[2021-10-23] MEDS: FUROSEMIDE 20 MG/2 ML VIAL IV SCH (10:46)
[2021-10-23] MEDS: PANTOPRAZOLE 40 MG/10 ML VIAL INJ IV SCH (10:46)
[2021-10-23] MEDS: methylPREDNISolone SOD SUCC 40 MG/ML VL IV SCH (10:46)
[2021-10-23] MEDS: AZITHROMYCIN 500MG/ 250ML 250 ML IV SCH (10:47)
[2021-10-23] MEDS: APIXABAN 5 MG TAB PO SCH (10:47)
[2021-10-23] MEDS: DRONEDARONE HCL 400 MG TAB PO SCH (10:47)
[2021-10-23] MEDS: ASPirin 81 mg TAB PO SCH (10:47)
[2021-10-23] MEDS: LISINOPRIL 10 MG TAB PO SCH (10:48)
[2021-10-23 12:11] VITALS: BP 126/59
== END 2021-10-23 13:24 | disposition home or self-care (01) | DRG 177 ==
LOC: EDBD 01:57 → ER 01:57 → TELE 09:47 → TELE-WESTW 10-19 01:53
PROVIDERS: ADMIT Registered Nurse; ATTEND Internal Medicine
PROC: 5A09357 Assistance with Respiratory Ventilation, Less than 24 Consecutive Hours, Continuous Positive Airway Pressure (ICD-10-PCS; 2021-10-18)
PROC: 4A023N7 Measurement of Cardiac Sampling and Pressure, Left Heart, Percutaneous Approach (ICD-10-PCS; principal; 2021-10-20)
PROC: B211YZZ Fluoroscopy of Multiple Coronary Arteries using Other Contrast (ICD-10-PCS; 2021-10-20)
PROC: B215YZZ Fluoroscopy of Left Heart using Other Contrast (ICD-10-PCS; 2021-10-20)
PROC: 4A033BC Measurement of Arterial Pressure, Coronary, Percutaneous Approach (ICD-10-PCS; 2021-10-20)
DX: U07.1 COVID-19 (principal); I21.4 Non-ST elevation (NSTEMI) myocardial infarction; J96.21 Acute and chronic respiratory failure with hypoxia; I47.1 Supraventricular tachycardia; N18.2 Chronic kidney disease, stage 2 (mild); K22.9 Disease of esophagus, unspecified; E11.22 Type 2 diabetes mellitus with diabetic chronic kidney disease; N40.0 Benign prostatic hyperplasia without lower urinary tract symptoms; F43.10 Post-traumatic stress disorder, unspecified; I25.10 Atherosclerotic heart disease of native coronary artery without angina pectoris; K21.9 Gastro-esophageal reflux disease without esophagitis; K44.9 Diaphragmatic hernia without obstruction or gangrene; K76.0 Fatty (change of) liver, not elsewhere classified; I12.9 Hypertensive chronic kidney disease with stage 1 through stage 4 chronic kidney disease, or unspecified chronic kidney disease; I48.91 Unspecified atrial fibrillation; J43.2 Centrilobular emphysema; Z79.899 Other long term (current) drug therapy; Z82.3 Family history of stroke; Z82.49 Family history of ischemic heart disease and other diseases of the circulatory system; Z87.440 Personal history of urinary (tract) infections; Z90.49 Acquired absence of other specified parts of digestive tract; Z83.3 Family history of diabetes mellitus
CPT/HCPCS: 36415; 71045; 71250; 80048; 80053; 80061; 81001; 82306; 83036; 83605; 83735; 83880; 84100; 84439; 84443; 84484; 85025; 85610; 85730; 87040; 93005; 93306; 93458; 93571; 94640; 94660; 96365; 96375; 97163; 99152; 99153; 99291; C9113; G0378; J0153; J0696; J1100; J2001; J2250; J7060

== ENCOUNTER 2021-11-26 09:43 | Day surgery (SDC) | payer MEDICARE, BC ==
[2021-11-23 15:02] LABS: Basophils # (auto) 0 10 ^3/uL (0-0.2); Basophils % (auto) 0.4 % (0.0-2.0); Eosinophils # (auto) 0.3 10 ^3/uL (0-0.8); Eosinophils % (auto) 2.4 % (0.0-7.0); Hematocrit 40.6 % (41.0-53.0); Hemoglobin 13.2 g/dL (13.5-17.5); Lymphocytes # (auto) 1.9 10 ^3/uL (0.4-5.4); Lymphocytes % (auto) 18.1 % (10.0-50.0); Mean Corpuscular Hemoglobin 30.8 pg (28.0-32.0); Mean Corpuscular Hgb Conc. 32.6 g/dL (32.0-36.0); Mean Corpuscular Volume 94.4 fL (80.0-100.0); Neutrophils # (auto) 7.2 10 ^3/uL (1.6-8.6); Neutrophils % (auto) 69.1 % (37.0-80.0); Nucleated Red Blood Cells % 0.1 %; White Blood Cell 10.4 10^3/uL (4.4-10.8)
[2021-11-23 15:10] LABS: Urine Bacteria NONE SEEN /hpf (None Seen); Urine Blood Negative /uL (Negative); Urine WBC 8 /hpf (0 - 3)
[2021-11-23 15:27] LABS: INR 0.99 (0.9-1.15); Partial Thromboplastin Time 28.2 sec (24.6-33.4)
[2021-11-23 15:33] LABS: Albumin 3.4 g/dL (3.4-5.0); Calcium 9.1 mg/dL (8.5-10.1)
[2021-11-23 15:37] LABS: BUN/Creatinine Ratio 12.4; Bilirubin, Total 0.2 mg/dL (0.2-1.0); Total Protein 7.2 g/dL (6.4-8.2)
[~2021-11-26] VITALS: Ht 180.3 cm; Wt 74.8 kg
[~2021-11-26 09:43] MED LIST changes: +ALB5IS NEB; -ALBU108A5 IN; +APIX5TAB PO; -CHOL20007 PO; +DRON400T PO; +FLUT1AER6 IN; +GABA-339 PO; -GABA300C10 PO; -IPRAAER6 IN; -LISI-706 PO; +LISI-716 PO; -METO25TA5 PO
[2021-11-26] MEDS ORDERED: ONDANSETRON HCL 4 MG/2 ML VIAL IV ONE (09:44)
[2021-11-26] MEDS ORDERED: PROPOFOL 10 MG/ML 20 ML IV ONE (09:44)
[2021-11-26] MEDS ORDERED: ONDANSETRON HCL 4 MG/2 ML VIAL IV PRN (10:30)
[2021-11-26] MEDS ORDERED: fentaNYL CITRATE 100 MCG/2 ML VL ONE (10:47)
[2021-11-26] MEDS ORDERED: MIDAZOLAM HCL 2MG/2ML 2ml VIAL (1mg/ml) ONE (10:47)
[2021-11-26 11:45] VITALS: BP 130/68
== END 2021-11-26 12:00 | disposition home or self-care (01) ==
LOC: GI 09:43
PROVIDERS: ATTEND Internal Medicine Gastroenterology
DX: R93.3 Abnormal findings on diagnostic imaging of other parts of digestive tract (principal); K22.81 Esophageal polyp; K29.50 Unspecified chronic gastritis without bleeding; C7A.1 Malignant poorly differentiated neuroendocrine tumors; K22.89 Other specified disease of esophagus; K21.9 Gastro-esophageal reflux disease without esophagitis; I10 Essential (primary) hypertension; E78.5 Hyperlipidemia, unspecified; I48.91 Unspecified atrial fibrillation; E11.9 Type 2 diabetes mellitus without complications; I25.2 Old myocardial infarction; F43.10 Post-traumatic stress disorder, unspecified; J43.9 Emphysema, unspecified; G47.30 Sleep apnea, unspecified; Z87.891 Personal history of nicotine dependence; Z90.89 Acquired absence of other organs; Z90.49 Acquired absence of other specified parts of digestive tract; Z96.649 Presence of unspecified artificial hip joint; Z98.890 Other specified postprocedural states; Z79.899 Other long term (current) drug therapy; Z20.822 Contact with and (suspected) exposure to COVID-19; Z82.49 Family history of ischemic heart disease and other diseases of the circulatory system; Z83.42 Family history of familial hypercholesterolemia
CPT/HCPCS: 36415; 43239; 80053; 81001; 82962; 85025; 85610; 85730; 88305; 88342; J2250; J2405; J2704; J3010; J7030; U0003; G0500

== ENCOUNTER 2022-01-02 12:06 | Emergency (ER) | payer MEDICARE, BC ==
[~2022-01-02] VITALS: Ht 180.3 cm; Wt 80.0 kg
[2022-01-02 12:25] VITALS: BP 130/70
[2022-01-02] MEDS ORDERED: KETOROLAC TROMETH 30 MG/ML 1ML VIAL IM ONE (15:15)
== END 2022-01-02 16:41 | disposition home or self-care (01) ==
LOC: ER 12:06
DX: S39.012A Strain of muscle, fascia and tendon of lower back, initial encounter (principal); J44.9 Chronic obstructive pulmonary disease, unspecified; E11.9 Type 2 diabetes mellitus without complications; I10 Essential (primary) hypertension; W01.0XXA Fall on same level from slipping, tripping and stumbling without subsequent striking against object, initial encounter; Y93.89 Activity, other specified; Y92.89 Other specified places as the place of occurrence of the external cause; Y99.8 Other external cause status
CPT/HCPCS: 72100; 72128; 96372; 99284; J1885

== ENCOUNTER 2023-01-15 09:07 | Emergency (ER) | payer MEDICARE, BC ==
[~2023-01-15] VITALS: Ht 180.3 cm; Wt 66.3 kg
[~2023-01-15 09:07] MED LIST changes: -LISI-716 PO; +LISI10TA34 PO
[2023-01-15] MEDS ORDERED: AMIO200T33 PO (11:22)
[2023-01-15] MEDS ORDERED: CLOP75TA70 PO (11:23)
[2023-01-15] MEDS ORDERED: IPRIH INH (11:24)
[2023-01-15] MEDS ORDERED: ASPI1TAB20 PO (11:24)
[2023-01-15] MEDS ORDERED: MAGN400T40 PO (11:25)
[2023-01-15] MEDS ORDERED: CHOL20007 OR (11:27)
[2023-01-15 12:17] VITALS: BP 170/77; PULSE 87; RESP 18; TEMP 97.7; O2SAT 96
== END 2023-01-15 13:07 | disposition home or self-care (01) ==
LOC: ER 09:07
DX: M25.551 Pain in right hip (principal); I10 Essential (primary) hypertension; E11.9 Type 2 diabetes mellitus without complications; J44.9 Chronic obstructive pulmonary disease, unspecified; E78.5 Hyperlipidemia, unspecified; Z79.899 Other long term (current) drug therapy; Z79.82 Long term (current) use of aspirin; Z79.84 Long term (current) use of oral hypoglycemic drugs; Z90.49 Acquired absence of other specified parts of digestive tract; Z90.89 Acquired absence of other organs; Z98.890 Other specified postprocedural states
CPT/HCPCS: 72192; 73502

== ENCOUNTER 2023-09-11 09:06 | Inpatient (IN) | payer MEDICARE, OTHER ==
[2023-09-11] VITALS (7 sets, daily range): BP systolic 141–147; BP diastolic 50–64; PULSE 65–81; RESP 18–20; TEMP 97.5–98.7; O2SAT 90–96
[~2023-09-11] VITALS: Ht 180.3 cm; Wt 78.5 kg
[~2023-09-11 09:06] MED LIST changes: -ALB5IS NEB; +AMIO200T33 PO; +AMPI500C9 PO; -APIX5TAB PO; +ATOR20TA PO; +CHOL200021 PO; +CLOP75TA70 PO; -DRON400T PO; +FERR325T20 PO; +FLUT1AER5 IN; -FLUT1AER6 IN; +GABA-1308 PO; -GABA-339 PO; +HYDR1TAB97 PO; -LISI10TA34 PO; +PRED20TA2 PO
[2023-09-11] MEDS: HYDROcodone-ACET 10/325MG TAB PO ONE (11:19)
[2023-09-11 11:57] LABS: Basophils # (auto) 0 10 ^3/uL (0-0.2); Basophils % (auto) 0.4 % (0.0-2.0); Eosinophils # (auto) 0.3 10 ^3/uL (0-0.8); Eosinophils % (auto) 2.5 % (0.0-7.0); Hematocrit 34.8 % (41.0-53.0); Hemoglobin 11.4 g/dL (13.5-17.5); Lymphocytes # (auto) 1.4 10 ^3/uL (0.4-5.4); Lymphocytes % (auto) 11.9 % (10.0-50.0); Mean Corpuscular Hemoglobin 31.2 pg (28.0-32.0); Mean Corpuscular Hgb Conc. 32.7 g/dL (32.0-36.0); Mean Corpuscular Volume 95.5 fL (80.0-100.0); Monocytes # (auto) 1.1 10 ^3/uL (0-1.3); Monocytes % (auto) 9.7 % (0.0-12.0); Neutrophils # (auto) 8.8 10 ^3/uL (1.6-8.6); Neutrophils % (auto) 75.5 % (37.0-80.0); Nucleated Red Blood Cells % 0.1 %; Red Blood Cells 3.64 10^6/uL (4.5-5.90); White Blood Cell 11.6 10^3/uL (4.4-10.8)
[2023-09-11 12:14] LABS: INR 1.01 (0.9-1.15); Partial Thromboplastin Time 27.3 SEC (24.5-34.5); Prothrombin Time 10.7 sec (9.3-11.8)
[2023-09-11 12:20] LABS: Alanine Aminotransferase 23 U/L (7-40); Alkaline Phosphatase 135 U/L (46-116); Calcium 9.9 mg/dL (8.5-10.1)
[2023-09-11 12:21] LABS: Albumin 4.6 g/dL (3.2-4.8); Anion Gap 6 (5-15); Aspartate Aminotransferase 39 U/L (13-40); BUN/Creatinine Ratio 11.3 (10.0-20.0); Bilirubin, Total 0.2 mg/dL (0.2-1.0); Blood Urea Nitrogen 11 mg/dL (9-23); Carbon Dioxide 30 mmol/L (20-30); Chloride 104 mmol/L (98-107); Glucose 108 mg/dL (74-106); Potassium 4.9 mmol/L (3.5-5.1); Sodium 140 mmol/L (136-145); Total Protein 6.9 g/dL (5.7-8.2)
[2023-09-11 12:29] LABS: Urine Bacteria None Seen /hpf (None Seen)
[2023-09-11] MEDS ORDERED: methylPREDNISolone SOD SUCC 125 MG/2 ML VL IM ONE (12:30)
[2023-09-11 12:44] LABS: Urine Amorphous Crystal FEW /hpf (None Seen); Urine Blood Negative /uL (Negative); Urine Budding Yeast FEW /hpf (None Seen); Urine Clarity Turbid (Clear); Urine Color Light-Yellow (Yellow); Urine Protein, UAD Negative (Negative); Urine Specific Gravity 1.022 (1.001-1.035); Urine Urobilinogen 3 mg/dL (Negative); Urine WBC 8 /hpf (0 - 3); Urine pH 7.5 (5.0-9.0)
[2023-09-11] MEDS: HYDROmorphone HCL 2 MG/ML VL/or syr IV ONE (13:34)
[2023-09-11] MEDS: levoFLOXacin 500MG 100 ML IV ONE (13:34)
[2023-09-11] MEDS: ONDANSETRON HCL 4 MG/2 ML VIAL IV ONE (13:34)
[2023-09-11] MEDS: IPRATROPIUM BROM 0.5 MG/2.5ML INH SOL NEB ONE (13:38)
[2023-09-11] MEDS: ALBUTEROL SULF 2.5 MG/0.5ML(0.5%) NEB SOLN NEB ONE (13:38)
[2023-09-11] MEDS: methylPREDNISolone SOD SUCC 125 MG/2 ML VL IV ONE (13:50)
[2023-09-11] MEDS ORDERED: MORPHINE SULFATE INJ 2 MG/ml SYRG IV PRN (14:15)
[2023-09-11] MEDS ORDERED: NITROGLYCERIN 0.4 MG SL TAB SL PRN (14:15)
[2023-09-11] MEDS ORDERED: DOCUSATE SOD 100 MG CAP PO PRN (14:15)
[2023-09-11] MEDS: SODIUM CHLORIDE 0.9% 1,000 ML IV SCH (14:55)
[2023-09-11] MEDS: IOHEXOL 350 MG/ML 100ML IJ ONE (15:27)
[2023-09-11] MEDS: IPRATROPIUM BROM 0.5 MG/2.5ML INH SOL NEB SCH (18:46)
[2023-09-11] MEDS: ALBUTEROL SULF 2.5 MG/0.5ML(0.5%) NEB SOLN NEB SCH (18:46)
[2023-09-11] MEDS: TAMSULOSIN HYDROCHLORIDE 0.4 MG CAP PO SCH (21:33)
[2023-09-11] MEDS: TEMAZEPAM 15 MG CAP PO ONE (21:34)
[2023-09-11] MEDS: methylPREDNISolone SOD SUCC 125 MG/2 ML VL IV SCH (21:35)
[2023-09-11] MEDS: GABAPENTIN 100 MG CAP PO SCH (21:37)
[2023-09-11] MEDS ORDERED: ENOXAPARIN SOD 100 MG/1 ML SYRINGE SC SCH (22:00)
[2023-09-11] MEDS: ONDANSETRON HCL 4 MG/2 ML VIAL IV PRN (22:50)
[2023-09-11] MEDS: MORPHINE SULFATE INJ 2 MG/ml SYRG IV PRN (22:50)
[2023-09-12] VITALS (16 sets, daily range): BP systolic 113–168; BP diastolic 54–87; PULSE 68–92; RESP 16–20; TEMP 97.9–98.5; O2SAT 92–98
[2023-09-12] MEDS ORDERED: [UNRECOGNIZED DRUG - CODE] PO (00:24)
[2023-09-12] MEDS: CALCIUM CARB 500 MG CHEW TAB PO PRN (00:58)
[2023-09-12] MEDS: ACETAMINOPHEN 325 MG TAB PO ONE (05:36)
[2023-09-12 06:04] LABS: Basophils # (auto) 0 10 ^3/uL (0-0.2); Basophils % (auto) 0.1 % (0.0-2.0); Eosinophils # (auto) 0 10 ^3/uL (0-0.8); Eosinophils % (auto) 0.1 % (0.0-7.0); Hematocrit 34.2 % (41.0-53.0); Hemoglobin 10.9 g/dL (13.5-17.5); Lymphocytes # (auto) 0.5 10 ^3/uL (0.4-5.4); Lymphocytes % (auto) 4.7 % (10.0-50.0); Mean Corpuscular Hgb Conc. 31.9 g/dL (32.0-36.0); Mean Corpuscular Volume 97.1 fL (80.0-100.0); Monocytes # (auto) 0.2 10 ^3/uL (0-1.3); Monocytes % (auto) 1.8 % (0.0-12.0); Neutrophils # (auto) 9.9 10 ^3/uL (1.6-8.6); Neutrophils % (auto) 93.3 % (37.0-80.0); Red Blood Cells 3.52 10^6/uL (4.5-5.90); Red Cell Distribution Width 17.2 % (11.8-14.3); White Blood Cell 10.6 10^3/uL (4.4-10.8)
[2023-09-12 06:17] LABS: Alanine Aminotransferase 20 U/L (7-40); Albumin 4.4 g/dL (3.2-4.8); Alkaline Phosphatase 113 U/L (46-116); Anion Gap 10 (5-15); Aspartate Aminotransferase 26 U/L (13-40); BUN/Creatinine Ratio 12.1 (10.0-20.0); Bilirubin, Total 0.2 mg/dL (0.2-1.0); Blood Urea Nitrogen 11 mg/dL (9-23); Calcium 9.9 mg/dL (8.5-10.1); Carbon Dioxide 26 mmol/L (20-30); Chloride 103 mmol/L (98-107); Glucose 132 mg/dL (74-106); Potassium 4.9 mmol/L (3.5-5.1); Sodium 139 mmol/L (136-145)
[2023-09-12 06:18] LABS: Total Protein 6.6 g/dL (5.7-8.2)
[2023-09-12] MEDS ORDERED: FLUCONAZOLE 200MG/100ML 100 ML IV SCH (10:00)
[2023-09-12 10:49] LABS: CRP High Sensitivity 0.8 mg/dL (<1.0); Magnesium 1.7 mg/dL (1.6-2.6)
[2023-09-12] MEDS ORDERED: levoFLOXacin 500MG 100 ML IV SCH (11:00)
[2023-09-12] MEDS ORDERED: PRED20TA2 PO (11:38)
[2023-09-12] MEDS ORDERED: DOXY1CAP57 PO (11:38)
[2023-09-12] MEDS: ATORVASTATIN 20 MG TAB PO SCH (11:57)
[2023-09-12] MEDS: AMIODARONE HCL 200 MG TAB PO SCH (11:58)
[2023-09-12] MEDS: PARoxetine 20 MG TAB PO SCH (11:58)
[2023-09-12] MEDS: CLOPIDOGREL BISULFATE 75 MG TAB PO SCH (11:58)
[2023-09-12] MEDS: PANTOPRAZOLE 40 MG TAB PO SCH (11:58)
[2023-09-12] MEDS: ENOXAPARIN SOD 40 MG/0.4 ML SYRINGE SC SCH (11:59)
[2023-09-12 12:37] LABS: COVID19 ANTIGEN SOFIA FIA NEGATIVE (NEGATIVE); Rapid Influenza A Negative (Negative); Rapid Influenza B Negative (Negative)
[2023-09-13] MEDS ORDERED: methylPREDNISolone SOD SUCC 40 MG/ML VL IV SCH (10:00)
== END 2023-09-12 15:15 | disposition home or self-care (01) | DRG 177 ==
LOC: ER 09:06 → OVERFLOW 14:26 → CENTRAL 16:11
PROVIDERS: ADMIT Internal Medicine Pulmonary Disease; ATTEND Internal Medicine Pulmonary Disease
DX: J15.69 Pneumonia due to other Gram-negative bacteria (principal); J96.21 Acute and chronic respiratory failure with hypoxia; J44.1 Chronic obstructive pulmonary disease with (acute) exacerbation; J44.0 Chronic obstructive pulmonary disease with (acute) lower respiratory infection; J15.9 Unspecified bacterial pneumonia; S20.212A Contusion of left front wall of thorax, initial encounter; I10 Essential (primary) hypertension; Z20.822 Contact with and (suspected) exposure to COVID-19; J43.9 Emphysema, unspecified; E11.9 Type 2 diabetes mellitus without complications; X58.XXXA Exposure to other specified factors, initial encounter; Z99.81 Dependence on supplemental oxygen; I25.2 Old myocardial infarction; Z82.49 Family history of ischemic heart disease and other diseases of the circulatory system; Z83.3 Family history of diabetes mellitus; Z90.49 Acquired absence of other specified parts of digestive tract; Z87.891 Personal history of nicotine dependence; Z99.3 Dependence on wheelchair; Z85.01 Personal history of malignant neoplasm of esophagus; Z82.3 Family history of stroke; Z83.42 Family history of familial hypercholesterolemia; Y93.89 Activity, other specified; Y92.89 Other specified places as the place of occurrence of the external cause; Y99.8 Other external cause status
CPT/HCPCS: 36415; 71046; 71275; 80053; 80061; 81001; 83735; 83880; 84443; 84484; 85025; 85379; 85610; 85730; 86141; 87081; 87426; 87804; 93970; 94640; 96365; 96375; 99291; G0378; J1956; J2405

== ENCOUNTER 2023-09-27 09:00 | Emergency (ER) | payer MEDICARE, OTHER ==
[~2023-09-27] VITALS: Ht 170.2 cm; Wt 65.0 kg
[~2023-09-27 09:00] MED LIST changes: -AMPI500C9 PO; +DOXY1CAP57 PO; +[UNRECOGNIZED DRUG - CODE] PO
[2023-09-27 09:23] VITALS: PULSE 88; RESP 16; O2SAT 91
[2023-09-27] MEDS: SODIUM CHLORIDE 0.9% 1,000 ML IV ONE (10:34)
[2023-09-27 10:55] LABS: Basophils # (auto) 0 10 ^3/uL (0-0.2); Basophils % (auto) 0.3 % (0.0-2.0); Eosinophils # (auto) 0.2 10 ^3/uL (0-0.8); Eosinophils % (auto) 1.4 % (0.0-7.0); Hematocrit 32.8 % (41.0-53.0); Hemoglobin 10.8 g/dL (13.5-17.5); Lymphocytes # (auto) 0.7 10 ^3/uL (0.4-5.4); Lymphocytes % (auto) 5.8 % (10.0-50.0); Mean Corpuscular Hemoglobin 31.2 pg (28.0-32.0); Mean Corpuscular Hgb Conc. 33.1 g/dL (32.0-36.0); Mean Corpuscular Volume 94.3 fL (80.0-100.0); Monocytes # (auto) 1.1 10 ^3/uL (0-1.3); Monocytes % (auto) 9.1 % (0.0-12.0); Neutrophils # (auto) 9.9 10 ^3/uL (1.6-8.6); Neutrophils % (auto) 83.4 % (37.0-80.0); Red Blood Cells 3.48 10^6/uL (4.5-5.90); Red Cell Distribution Width 17.1 % (11.8-14.3); White Blood Cell 11.9 10^3/uL (4.4-10.8)
[2023-09-27 10:55] LABS: Urine Bacteria None Seen /hpf (None Seen)
[2023-09-27 11:11] LABS: Urine Amorphous Crystal FEW /hpf (None Seen); Urine Blood 3+ /uL (Negative); Urine Clarity Turbid (Clear); Urine Color Light-Yellow (Yellow); Urine Protein, UAD Negative (Negative); Urine Specific Gravity 1.018 (1.001-1.035); Urine Urobilinogen Normal (Negative); Urine WBC 8 /hpf (0 - 3); Urine pH 7.5 (5.0-9.0)
[2023-09-27 11:13] LABS: INR 1.08 (0.9-1.15); Partial Thromboplastin Time 30.6 SEC (24.5-34.5); Prothrombin Time 11.4 sec (9.3-11.8)
[2023-09-27 11:15] LABS: Alanine Aminotransferase 18 U/L (7-40); Albumin 4.2 g/dL (3.2-4.8); Alkaline Phosphatase 102 U/L (46-116); Anion Gap 7 (5-15); Aspartate Aminotransferase 25 U/L (13-40); BUN/Creatinine Ratio 12.2 (10.0-20.0); Blood Urea Nitrogen 11 mg/dL (9-23); Calcium 9.5 mg/dL (8.7-10.4); Carbon Dioxide 27 mmol/L (20-30); Chloride 101 mmol/L (98-107); Glucose 94 mg/dL (74-106); Lipase 20 U/L (12-53); Magnesium 1.7 mg/dL (1.6-2.6); Potassium 4.5 mmol/L (3.5-5.1); Sodium 135 mmol/L (136-145)
[2023-09-27 11:16] LABS: Bilirubin, Total 0.4 mg/dL (0.2-1.0); Total Protein 6.4 g/dL (5.7-8.2)
[2023-09-27] MEDS: KETOROLAC TROMETH 30 MG/ML 1ML VIAL IV ONE (11:38)
[2023-09-27] MEDS ORDERED: CEFD300C2 PO (14:37)
[2023-09-27] MEDS ORDERED: HYDR-4902 PO (14:37)
[2023-09-27] MEDS: cefTRIAXone 1GM/50ML D5W 50 ML IV ONE (14:55)
[2023-09-27 15:37] VITALS: BP 134/65; PULSE 71; RESP 19; O2SAT 94
== END 2023-09-27 15:37 | disposition home or self-care (01) ==
LOC: EDBD 09:00 → ER 09:00
DX: S70.01XA Contusion of right hip, initial encounter (principal); J18.9 Pneumonia, unspecified organism; D64.9 Anemia, unspecified; R31.9 Hematuria, unspecified; I10 Essential (primary) hypertension; E11.9 Type 2 diabetes mellitus without complications; J44.9 Chronic obstructive pulmonary disease, unspecified; Z85.9 Personal history of malignant neoplasm, unspecified; Z98.890 Other specified postprocedural states; Z87.891 Personal history of nicotine dependence; Z79.899 Other long term (current) drug therapy; W01.0XXA Fall on same level from slipping, tripping and stumbling without subsequent striking against object, initial encounter; Y93.89 Activity, other specified; Y92.098 Other place in other non-institutional residence as the place of occurrence of the external cause; Y99.8 Other external cause status
CPT/HCPCS: 36415; 71045; 73502; 80053; 81001; 83690; 83735; 84484; 85025; 85610; 85730; 93005; 96361; 96365; 96375; 99285; J0696; J1885; J7030

== ENCOUNTER 2024-02-13 11:36 | Inpatient (IN) | payer MEDICARE, OTHER ==
[~2024-02-13] VITALS: Ht 175.3 cm; Wt 66.5 kg
[~2024-02-13 11:36] MED LIST changes: +CEFD300C2 PO; +HYDR-4902 PO; -TAMS0.4C36 PO; +TAMS0.4C39 PO
--- NOTE | 2024-02-13 11:50 | ED.PDOC ---
HPI (NEURO) HPI Comments HPI: 78y M who presents to the ED via EMS for chief complaint of generalized weakness. Per EMS, pt lives with and called after pt has been having weakness, acting altered and "increased twitching" for the past 1 week. EMS arrived on scene and EMS states pt was alert and oriented x 4 but states they noted pt exhibiting twitching like behavior. EMS states they noted pt had Montalvo in place and states pt had recently been diagnosed with UTI and recently finished his course of antibiotics. EMS checked vitals and noted pt had BP of 78/40 and IV fluids were started and pt was brought to the ED. Pt now in the ED, is alert and oriented and able to answer questions. pt has occasional h/o twitching and shaking like behavior from previous agent orange exposure while in the . Pt otherwise denies any other symptoms at this time. 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 Patient had a hypotensive episode while rule out which responded to fluid resuscitation by EMS. Past Medcial History: Past Surgical History: REVIEW OF SYSTEMS: CONSTITUTIONAL: Denies acute: fever, diaphoresis, chills, HEAD: Denies acute: headache, photophobia Eyes: Denies acute: Double vision, vision loss, eye pain, eye discharge. EARS: Denies acute: tinnitus, hearing loss, ear discharge, ear pain, THROAT: Denies acute: sore throat, swelling, difficulty swallowing , pain with swallowing, change in voice. NECK: Denies acute: neck pain, neck swelling, stiff neck. HEART: Denies acute : chest pain, palpitations, LUNGS: Denies acute: SOB, wheezing, cough, hemoptysis ABDOMEN: Denies acute: abdominal pain, Nausea, Vomiting, diarrhea, melena , hematemesis, hematochezia SKIN: Denies acute: rash, redness, lesions, itchiness. EXTREMITIES: Denies acute: calf pain, numbness, tingling, weakness, denies pain in extremity. Denies acute: Low back pain. Neuro: Denies acute: focal neurological deficit, motor or sensory focal neurological deficit, seizure like activity, confusion, dizziness, change in mental status, loss of bowel or bladder function, cauda equina like symptoms. : Denies acute: dysuria, hematuria, flank pain, increase in urinary frequency. PSYCH: Denies acute: hallucination, suicidal ideation, homicidal ideation. PHYSICAL EXAM: General: no acute distress, awake and alert. Head: normocephalic, atraumatic. Neck: supple, trachea is midline, no swelling. Throat: Normal phonation. Eyes:, no erythema, no purulent discharge, no proptosis, no icterus. Heart: regular rate, regular rhythm, no significant murmur appreciated. Lungs: no apparent respiratory distress, Able to speak in full sentences. No wheezing, no rhonchi, no crackles. No stridors Clear to auscultation bilaterally. Abdomen: non tender to palpation, non distended, soft, no guarding, no rebound, + bowel sounds. Indwelling Montalvo catheter Neuro: Awake, Alert, oriented to name, self, situation, follows commands GCS=15. Speech is normal. Skin: no petechia, no purpura, no cyanosis, non-pale, not jaundice. Lower extremities: --no - Pitting edema no deformity, no focal swelling, no calf TTP. Makes eye contact. moves all four extremities. Face: no apparent facial droop. Chief Complaint: ALOC Time Seen by MD: 12:07 Primary Care Provider: pt does not know Reviewed Notes: Medications, Allergies Information Source: Patient, Emergency Med Personnel Mode of Arrival: EMS Brought in by: EMS Past Medical History PAST MEDICAL HISTORY: Cancer, COPD, DM, HTN, UTI'S Surgical History: Appendectomy, Tonsillectomy Family History Family History: Reviewed,noncontributory to illness, Family hx of DM, Family hx of HTN Social History Smoker: Quit Greater Than 1 Year, Cigarettes Alcohol: Denies ETOH Use Drugs: Denies Drug Use Lives In: Home Was a procedure done? Was a procedure done?: No Differential Diagnosis (SZ) General Weakness: Other (Includes but not limited to thyroid disease, encephalopathy, electrolyte abnormality, sepsis, infection, intracranial pathology, drug adverse effects, arrhythmia, kidney insufficiency, ACS, CVA, malignancy, anemia) X-Ray, Labs, Meds, VS Vital Signs Date Time Temp Pulse Resp B/P (MAP) Pulse Ox O2 Delivery O2 Flow Rate FiO2 02/13/24 15:00 68 16 141/54 (83) 95 02/13/24 14:14 69 02/13/24 13:00 66 17 147/100 (116) 93 02/13/24 12:30 64 15 92 Nasal Cannula* 3 32 02/13/24 12:10 98.3 64 14 132/64 (86) 93 98.3 02/13/24 11:53 65 02/13/24 11:44 98.3 64 18 107/47 (67) 95 Lab Test 02/13/24 15:13 02/13/24 13:20 02/13/24 12:19 02/13/24 12:12 Range/Units Troponin I High Sensitivity 64 *H 72 *H 68 *H </=54 ng/L White Blood Count 10.6 4.4-10.8 10^3/uL Red Blood Count 3.26 L 4.5-5.90 10^6/uL Hemoglobin 10.1 L 13.5-17.5 g/dL Hematocrit 30.9 L 41.0-53.0 % Mean Corpuscular Volume 94.7 80.0-100.0 fL Mean Corpuscular Hemoglobin 31.0 28.0-32.0 pg Mean Corpuscular Hemoglobin Concent 32.7 32.0-36.0 g/dL Red Cell Distribution Width 17.5 H 11.8-14.3 % Platelet Count 209 140-450 10^3/uL Mean Platelet Volume 7.0 6.9-10.8 fL Neutrophils (%) (Auto) 80.3 H 37.0-80.0 % Lymphocytes (%) (Auto) 6.9 L 10.0-50.0 % Monocytes (%) (Auto) 10.2 0.0-12.0 % Eosinophils (%) (Auto) 1.7 0.0-7.0 % Basophils (%) (Auto) 0.9 0.0-2.0 % Neutrophils # (Auto) 8.5 1.6-8.6 10 ^3/uL Lymphocytes # (Auto) 0.7 0.4-5.4 10 ^3/uL Monocytes # (Auto) 1.1 0-1.3 10 ^3/uL Eosinophils # (Auto) 0.2 0-0.8 10 ^3/uL Basophils # (Auto) 0.1 0-0.2 10 ^3/uL Nucleated Red Blood Cells 0.0 % Sodium Level 138 136-145 mmol/L Potassium Level 5.1 3.5-5.1 mmol/L Chloride Level 105 98-107 mmol/L Carbon Dioxide Level 25 20-31 mmol/L Anion Gap 8 5-15 Blood Urea Nitrogen 32 H 9-23 mg/dL Creatinine 1.77 H 0.700-1.30 mg/dL Glomerular Filtration Rate Calc 39 >90 mL/min BUN/Creatinine Ratio 18.1 10.0-20.0 Serum Glucose 87 74-106 mg/dL Calcium Level 9.7 8.7-10.4 mg/dL Magnesium Level 2.1 1.6-2.6 mg/dL Total Bilirubin 0.4 0.2-1.0 mg/dL Aspartate Amino Transferase (AST) 38 13-40 U/L Alanine Aminotransferase (ALT) 14 7-40 U/L Alkaline Phosphatase 137 H 46-116 U/L B-Type Natriuretic Peptide 177.99 0-100 pg/mL Total Protein 6.3 5.7-8.2 g/dL Albumin 4.1 3.2-4.8 g/dL Lactic Acid Level 1.0 0.4-2.0 mmol/L Test 02/13/24 12:03 Range/Units POC Glucose 108 H 70-106 mg/dl Current Medications Medications (Trade) Dose Ordered Sig/[place] Route Start Time Stop Time Status Last Admin Aspirin 325 mg ONCE ONCE PO 02/13/24 14:15 02/13/24 14:16 DC 02/13/24 14:[address] [address] Ph: [phone] DIAGNOSTIC IMAGING Diagnostic Imaging Report : [id number] Signed PATIENT: MARTIN DICKERSON ACCT: [id number] UNIT: [id number] : 1945 LOC: ER ROOM / BED: / AGE / SEX: 78 / M ADM STATUS: REG ER SERVICE 1149 ORDERING PHYSICIAN: CHANDA HELTON DO PROCEDURE(s): HWOCT - HEAD WITHOUT CONTRAST REASON: WEAK ALOC ORDER NUMBER(s): [id number], ACCESSION NUMBER(s): [id number] CLINICAL INFORMATION: 78 years old, Male; weakness. Acute loss of consciousness. Tremors. TECHNIQUE: Axial imaging was obtained through the brain without contrast. Coronal and sagittal reformatted images were obtained, reviewed, and stored. Images were reviewed in brain and bone windows. All CT scans at this medical facility are performed using dose modulation techniques as appropriate to a performed exam including the following: Automated exposure control was utilized; adjustment of the MA and/or KV according to patient size; and use of iterative r econstruction technique. CTDIvol = 55.7 mGy DLP = 1207.65 mGy-cm COMPARISON: CT PELVIS WO CONTRAST on DOS: 01/15/23, CHEST WITHOUT CONTRAST on DOS: 10/19/21, CT ABD PELVIS WO CONTRAST on DOS: 05/18/19 FINDINGS: Motion artifact limits evaluation for subtle findings. No acute intracranial hemorrhage. No mass effect or midline shift. Atrophic changes with prominence of the ventricles and widening of the sulci. Basal cisterns are patent. Scattered areas of hypoattenuation are seen in the periventricular and s ubcortical white matter, which are nonspecific but most likely sequelae of small vessel ischemic disease. The calvarium is unremarkable. Paranasal sinuses and mastoid air cells are clear. IMPRESSION: 1. Motion limited study. 2. No CT evidence of acute intracranial abnormality. 3. Nonacute findings as detailed above. ATED BY: MARTIN AMAYA DO DICTATED DATE/TIME: 02/13/241246 SIGNED BY: MARTIN AMAYA DO SIGNED DATE/TIME: 02/13/241246 CC: [place] [id number] Ph: [phone] DIAGNOSTIC IMAGING Diagnostic Imaging Report : [id number] Signed PATIENT: MARTIN DICKERSON ACCT: [id number] UNIT: [id number] : 1945 LOC: ER ROOM / BED: / AGE / SEX: 78 / M ADM STATUS: REG ER SERVICE 1149 ORDERING PHYSICIAN: CHANDA HELTON DO PROCEDURE(s): CXRP - CHEST PORTABLE REASON: WEAK ORDER NUMBER(s): [id number], ACCESSION NUMBER(s): [id number] CHEST RADIOGRAPH Indication: WEAK Technique: Single frontal view of the chest was obtained Comparison: XY CHEST PORTABLE on DOS: 09/27/23, XY CHEST PORTABLE on DOS: 06/23/23 FINDINGS: Lines and Tubes: Right chest Port-A-Cath. Lungs: No focal consolidation. Emphysematous changes of the bilateral lungs. Bibasilar atelectasis. Pleura: No effusion. No pneumothorax. Cardiomediastinal contours: Unremarkable Bones: No acute osseous abnormality. Chronic mildly displaced left-sided rib fracture deformities. IMPRESSION: 1. Right chest Port-A-Cath. Chronic left-sided rib fracture deformities. No radiographic evidence of acute cardiopulmonary disease. HS:Y ATED BY: LIZANDRO ALVAREZ DO DICTATED DATE/TIME: 02/13/24 1304 SIGNED BY: LIZANDRO ALVAREZ DO SIGNED DATE/TIME: 02/13/24 1304 CC: Time of 1ST Reevaluation: 00:34 Reevaluation 1ST: Improved Patient Education/Counseling: Diagnosis, Treatment Family Education/Counseling: No Family Present Comments Patient presented with the above HPI.----generalized weak--workup was initiated. patient was found with the above mentioned diagnosis. Patient was given: Aspirin, fluids, antibiotics Patient ED course and VS have been stabilized. Patient has been reassessed in [facility] ED and remained in a stable condition. Pertinent incidental findings were discussed with the patient and/or family. Patient/family voices understanding and is agreeable with plan. Patient has been observed in the ED adequate length of time to insure improvement/stability. patient was admitted to the medicine team for further evaluation and treatment of their presentation. All the reports of any imaging studies that were ordered by myself were reviewed by myself. Departure 1 Departure Time of Disposition: 14:01 Impression: Primary Impression: Elevated troponin Additional Impressions: Generalized weakness UTI (urinary tract infection) Disposition: ADMITTED INPATIENT Condition: Guarded Discharged With: Self, Spouse Critical Care Note Critical Care Time?: Yes (35 min-critical care time only) I personally scribed for CHANDA HELTON DO ([facility]) on 02/13/24 at 11:50. Electronically submitted by Savannah Saenz ([facility] I personally scribed for CHANDA HELTON DO ([facility]) on 02/13/24 at 12:08. Electronically submitted by Savannah Saenz ([facility]). I personally scribed for CHANDA HELTON DO ([facility]) on 02/13/24 at 13:12. Electronically submitted by Savannah Saenz ([facility] CHANDA HELTON DO Feb 13, 2024 11:50
[2024-02-13 12:30] VITALS: PULSE 64; RESP 15; O2SAT 92
[2024-02-13 12:44] LABS: Basophils # (auto) 0.1 10 ^3/uL (0-0.2); Basophils % (auto) 0.9 % (0.0-2.0); Eosinophils # (auto) 0.2 10 ^3/uL (0-0.8); Eosinophils % (auto) 1.7 % (0.0-7.0); Hematocrit 30.9 % (41.0-53.0); Hemoglobin 10.1 g/dL (13.5-17.5); Lymphocytes # (auto) 0.7 10 ^3/uL (0.4-5.4); Lymphocytes % (auto) 6.9 % (10.0-50.0); Mean Corpuscular Hgb Conc. 32.7 g/dL (32.0-36.0); Mean Corpuscular Volume 94.7 fL (80.0-100.0); Monocytes # (auto) 1.1 10 ^3/uL (0-1.3); Monocytes % (auto) 10.2 % (0.0-12.0); Neutrophils # (auto) 8.5 10 ^3/uL (1.6-8.6); Neutrophils % (auto) 80.3 % (37.0-80.0); Platelet Count (auto) 209 10^3/uL (140-450); Red Blood Cells 3.26 10^6/uL (4.5-5.90); Red Cell Distribution Width 17.5 % (11.8-14.3); White Blood Cell 10.6 10^3/uL (4.4-10.8)
--- NOTE | 2024-02-13 12:49 | DVH ---
CLINICAL INFORMATION: 78 years old, Male; weakness. Acute loss of consciousness. Tremors. TECHNIQUE: Axial imaging was obtained through the brain without contrast. Coronal and sagittal refor matted images were obtained, reviewed, and stored. Images were reviewed in brain and bone windows. A ll CT scans at this medical facility are performed using dose modulation techniques as appropriate to a performed exam including the following: Automated exposure control was utilized; adjustment of the MA and/or KV according to patient size; and use of iterative reconstruction technique. CTDIvol = 55.7 mGy DLP = 1207.65 mGy-cm COMPARISON: CT PELVIS WO CONTRAST on DOS: 01/15/23, CHEST WITHOUT CONTRAST on DOS: 10/19/21, CT ABD PEL VIS WO CONTRAST on DOS: 05/18/19 FINDINGS: Motion artifact limits evaluation for subtle findings. No acute intracranial hemorrhage. N o mass effect or midline shift. Atrophic changes with prominence of the ventricles and widening of t he sulci. Basal cisterns are patent. Scattered areas of hypoattenuation are seen in the periventricul ar and subcortical white matter, which are nonspecific but most likely sequelae of small vessel ische cierra disease. The calvarium is unremarkable. Paranasal sinuses and mastoid air cells are clear. IMPRESSION: 1. Motion limited study. 2. No CT evidence of acute intracranial abnormality. 3. Nonacute findings as detailed above.
[2024-02-13 13:02] LABS: Alanine Aminotransferase 14 U/L (7-40); Alkaline Phosphatase 137 U/L (46-116); Anion Gap 8 (5-15); Aspartate Aminotransferase 38 U/L (13-40); BUN/Creatinine Ratio 18.1 (10.0-20.0); Blood Urea Nitrogen 32 mg/dL (9-23); Calcium 9.7 mg/dL (8.7-10.4); Carbon Dioxide 25 mmol/L (20-31); Chloride 105 mmol/L (98-107); Glucose 87 mg/dL (74-106); Magnesium 2.1 mg/dL (1.6-2.6); Potassium 5.1 mmol/L (3.5-5.1); Sodium 138 mmol/L (136-145)
[2024-02-13 13:03] LABS: Albumin 4.1 g/dL (3.2-4.8); Bilirubin, Total 0.4 mg/dL (0.2-1.0); Total Protein 6.3 g/dL (5.7-8.2)
--- NOTE | 2024-02-13 13:07 | DVH ---
CHEST RADIOGRAPH Indication: WEAK Technique: Single frontal view of the chest was obtained Comparison: XY CHEST PORTABLE on DOS: 09/27/23, XY CHEST PORTABLE on DOS: 06/23/23 FINDINGS: Lines and Tubes: Right chest Port-A-Cath. Lungs: No focal consolidation. Emphysematous changes of the bilateral lungs. Bibasilar atelectasis. Pleura: No effusion. No pneumothorax. Cardiomediastinal contours: Unremarkable Bones: No acute osseous abnormality. Chronic mildly displaced left-sided rib fracture deformities. IMPRESSION: 1. Right chest Port-A-Cath. Chronic left-sided rib fracture deformities. No radiographic evidence of acute cardiopulmonary disease. HS:Y
[2024-02-13] MEDS: ASPirin 325 MG TAB PO ONE (14:55)
[2024-02-13] MEDS ORDERED: DOCUSATE SOD 100 MG CAP PO PRN (15:45)
[2024-02-13] MEDS ORDERED: ACETAMINOPHEN 325 MG TAB PO PRN (15:45)
[2024-02-13] MEDS ORDERED: NITROGLYCERIN 0.4 MG SL TAB SL PRN (15:45)
[2024-02-13] MEDS ORDERED: HYDROcodone-ACET 5/325MG TAB PO PRN (15:45)
[2024-02-13] MEDS ORDERED: MAALOX PLUS or MAALOX 30 ML PO PRN (15:45)
[2024-02-13] MEDS ORDERED: MORPHINE SULFATE INJ 2 MG/ml SYRG IV PRN (15:45)
--- NOTE | 2024-02-13 16:00 | DVHHP2 ---
History of Present Illness Reason for Visit: General weakness History of Present Illness 78-year-old patient with a past medical history extensive for esophageal cancer with a Port-A-Cath, history of COPD, diabetes, OK in the past, diverticulitis, patient comes in for evaluation of severe weakness as well as having an evaluation in the ED they show severe hypotension patient has been progressively getting worse and weak over the past week or so in this case during the ED evaluation patient had elevated levels of troponin elevated levels of BP which suggest possible cardiac event patient was recommended for evaluation and continued management for both general weakness and severe need for evaluation for cardiac workup patient will be admitted to telemetry at this point in time for further management Cardiovascular: HTN, hyperipidemia Pulmonary: COPD Heme/Onc: Cancer Endocrine: Diabetes Review of Systems Constitutional: Yes: Weakness; No: Fever, Chills, Sweats, Malaise, Other Eyes: No: Pain, Vision change, Conjunctivae inflammation, Eyelid inflammation, Other, Redness ENT: No: Ear pain, Ear discharge, Nose pain, Nose discharge, Nose congestion, Mouth pain, Mouth swelling, Throat pain, Throat swelling, Other Respiratory: No: Cough, Dry, Shortness of breath, SOB with excertion, Wheezing, Hemoptysis, Pleuritic Pain, Sputum, Wheezing, Other Cardiovascular: Chest Pain, Palpitations Gastrointestinal: Vomiting, Abdominal Pain; No: Nausea, Diarrhea, Constipation, Melena, Hematochezia, Other Genitourinary: Dysuria, Frequency; No Incontinence, No Hematuria, No Retention, No Other Musculoskeletal: No: other, neck pain, shoulder pain, arm pain, back pain, hand pain, leg pain, foot pain Skin: No: Rash, Lesions, Jaundice, Bruising, Other Neurological: No: Weakness, Numbness, Incoordination, Change in speech, Confusion, Seizures, Other Allergies: Coded Allergies: NO KNOWN ALLERGIES (Unverified , 02/03/19) Exam Vital Signs Vital Signs Date Time Temp Pulse Resp B/P (MAP) Pulse Ox O2 Delivery O2 Flow Rate FiO2 02/13/24 14:14 69 02/13/24 12:10 98.3 14 132/64 (86) 93 98.3 General Appearance: Alert, Oriented X3, moderate distress HEENT: Atraumatic, PERRLA Respiratory: Clear to auscultation Cardiovascular: Regular rate, Normal S1 Abdominal: Normal bowel sounds, Soft Extremities: No clubbing, No cyanosis Skin: No rashes, No breakdown Neuro: Normal speech Psych/Mental Status: Mood NL Labs/Xrays Labs Test 02/13/24 15:13 02/13/24 12:19 02/13/24 12:12 02/13/24 12:03 Range/Units White Blood Count 10.6 4.4-10.8 10^3/uL Red Blood Count 3.26 L 4.5-5.90 10^6/uL Hemoglobin 10.1 L 13.5-17.5 g/dL Hematocrit 30.9 L 41.0-53.0 % Mean Corpuscular Volume 94.7 80.0-100.0 fL Mean Corpuscular Hemoglobin 31.0 28.0-32.0 pg Mean Corpuscular Hemoglobin Concent 32.7 32.0-36.0 g/dL Red Cell Distribution Width 17.5 H 11.8-14.3 % Platelet Count 209 140-450 10^3/uL Mean Platelet Volume 7.0 6.9-10.8 fL Neutrophils (%) (Auto) 80.3 H 37.0-80.0 % Lymphocytes (%) (Auto) 6.9 L 10.0-50.0 % Monocytes (%) (Auto) 10.2 0.0-12.0 % Eosinophils (%) (Auto) 1.7 0.0-7.0 % Basophils (%) (Auto) 0.9 0.0-2.0 % Neutrophils # (Auto) 8.5 1.6-8.6 10 ^3/uL Lymphocytes # (Auto) 0.7 0.4-5.4 10 ^3/uL Monocytes # (Auto) 1.1 0-1.3 10 ^3/uL Eosinophils # (Auto) 0.2 0-0.8 10 ^3/uL Basophils # (Auto) 0.1 0-0.2 10 ^3/uL Nucleated Red Blood Cells 0.0 % Sodium Level 138 136-145 mmol/L Potassium Level 5.1 3.5-5.1 mmol/L Chloride Level 105 98-107 mmol/L Carbon Dioxide Level 25 20-31 mmol/L Anion Gap 8 5-15 Blood Urea Nitrogen 32 H 9-23 mg/dL Creatinine 1.77 H 0.700-1.30 mg/dL Glomerular Filtration Rate Calc 39 >90 mL/min BUN/Creatinine Ratio 18.1 10.0-20.0 Serum Glucose 87 74-106 mg/dL Calcium Level 9.7 8.7-10.4 mg/dL Magnesium Level 2.1 1.6-2.6 mg/dL Total Bilirubin 0.4 0.2-1.0 mg/dL Aspartate Amino Transferase (AST) 38 13-40 U/L Alanine Aminotransferase (ALT) 14 7-40 U/L Alkaline Phosphatase 137 H 46-116 U/L B-Type Natriuretic Peptide 177.99 0-100 pg/mL Total Protein 6.3 5.7-8.2 g/dL Albumin 4.1 3.2-4.8 g/dL Lactic Acid Level 1.0 0.4-2.0 mmol/L POC Glucose 108 H 70-106 mg/dl Assessment/Plan Assessment/Plan Admit to telemetry Patient with generalized weakness NSTEMI Chest pain protocol Elevated troponins x2 Cardio evaluation for the possible need for CT evaluation Continue with patient's home medications associated with cardiac disease ACS present with a history of OK in the past as well as a history of COPD History of COPD no acute signs of COPD exacerbation at this point in time P.r.n. breathing treatments Patient with a history of diabetes Management patient with insulin sliding scale moderate Gentle hydration as required as patient was initially hypovolemic on initial evaluation We have blood pressures as low as 70s over 40s Patient now hemodynamically improved Monitor for signs of fluid overload Monitor for glucose changes that are acute History of esophageal cancer Patient does have a Port-A-Cath on the right side no acute signs of blockage access of the Port-A-Cath is reasonable if required by nursing For medication administration Acute AMANUEL Likely in the setting of hypotension Monitor for improvement of BUN and creatinine repeat labs in the a.m. Gentle hydration with monitoring for signs of fluid overload BNP slightly elevated at 177 no acute signs of overt or fluid failure at this point in time Plan discussed with: Patient My Orders Orders - HARITHA BREWSTER MD Procedure Category Date Status Time Amiodarone Tablet PHA 02/14/24 Logged (Cordarone Tablet) 10:00 Atorvastatin (Lipitor) PHA 02/14/24 Logged 10:00 Clopidogrel Bisulfate PHA 02/14/24 Logged (Plavix) 10:00 Gabapentin Capsule PHA 02/13/24 Logged (Neurontin Capsule) 22:00 Hydrocodone-Acet PHA 02/13/24 Logged 5/325mg Tab (Atkins 22:00 Metformin PHA 02/14/24 Logged Hydrochloride 10:00 Paroxetine Tablet PHA 02/14/24 Logged (Paxil Tablet) 10:00 Tamsulosin PHA 02/14/24 Logged Hydrochloride (Flomax) 10:00 (Nf) Cholecalciferol PHA 02/14/24 Logged (D3) 10:00 (Nf) Ferrous Sulfate PHA 02/14/24 Logged (Ferosul) 10:00 (Nf) Omeprazole (Gnp PHA 02/14/24 Logged Omeprazole) 10:00 (Nf) Rosuvastatin PHA 02/14/24 Logged Calcium (Crestor) 10:00 Admit ADMIT 02/13/24 Transmitted 15:33 Code Status CODE 02/13/24 Transmitted 15:33 Vital Signs [facility] 02/13/24 In Process 15:33 Review Orders With [facility] 02/13/24 In Process Adm. 15:33 Regular Diet DIET 02/13/24 Transmitted Dinner Sodium Chloride 0.9% PHA 02/13/24 Logged 15:45 Lorazepam Tablet PHA 02/13/24 Logged (Ativan Tablet) 15:45 Alum & Mag PHA 02/13/24 Logged Hydrox-Simethicone 15:45 Docusate Sodium PHA 02/13/24 Logged Capsule (Colace 15:45 Acetaminophen Tablet PHA 02/13/24 Logged (Tylenol Tablet) 15:45 Notify Of Changes [facility] 02/13/24 In Process From Base 15:33 Advance Directive [facility] 02/13/24 In Process 15:33 Basic Metabolic Panel LAB 02/14/24 Verified 04:00 Complete Blood Count LAB 02/14/24 Verified 04:00 Patient Condition ORDERS 02/13/24 Transmitted 15:33 Allergies [facility] 02/13/24 In Process 15:33 Hydrocodone-Acet [facility] 02/13/24 Logged 5/325mg Tab (Atkins 15:45 Ondansetron Hcl PHA 02/13/24 Logged (Zofran) 15:45 Morphine Sulfate PHA 02/13/24 Logged Injection 15:45 Notify Of Changes [facility] 02/13/24 In Process From Base 15:33 Dress Finisher For [facility] 02/13/24 In Process 24 Hours 15:33 Emergency Dysrhythmia [facility] 02/13/24 In Process Protocol 15:33 Rhythm Strips Once TIFFANIE 02/13/24 In Process Every Shift 15:33 Oxygen By Nasal RT 02/13/24 Transmitted Cannula 15:33 Stat Ekg For Chest TIFFANIE 02/13/24 In Process Pain 15:33 Nitroglycerin PHA 02/13/24 Logged Sublingual (Ntrostat 15:45 Morphine Sulfate PHA 02/13/24 Logged Injection 15:45 Furosemide Injection PHA 02/13/24 Transmitted (Lasix Injection) 22:00 Albuterol Medneb PHA 02/13/24 Transmitted (Ventolin Medneb) 16:00 Ipratropium Medneb PHA 02/13/24 Transmitted (Atrovent Medneb) 16:00 Med Neb Initial RT 02/13/24 Transmitted Treatment 15:51 Prednisone Tablet PHA 02/14/24 Transmitted 10:00 * Cardiology Consult CONS 02/13/24 Transmitted 15:51 Problem List: (1) NSTEMI (non-ST elevated myocardial infarction) (2) Anemia (3) Elevated troponin (4) Generalized weakness (5) Diabetes (6) Hypertension (7) COPD (chronic obstructive pulmonary disease) (8) BPH (benign prostatic hyperplasia) Date of Service: Feb 13, 2024 Billing Provider: HRAITHA BREWSTER MD Common Visit Codes: [id number] INP/OBS CARE (HIGH) HARITHA BREWSTER MD Feb 13, 2024 16:00
[2024-02-13] MEDS: SODIUM CHLORIDE 0.9% 1,000 ML IV SCH (16:30)
[2024-02-13 16:48] LABS: Urine Bacteria None Seen /hpf (None Seen)
[2024-02-13 17:07] LABS: Urine Blood 3+ /uL (Negative); Urine Budding Yeast FEW /hpf (None Seen); Urine Clarity Turbid (Clear); Urine Color Yellow (Yellow); Urine Protein, UAD 1+ (Negative); Urine Specific Gravity 1.022 (1.001-1.035); Urine Urobilinogen Normal (Negative); Urine WBC 52 /hpf (0 - 3)
--- NOTE | 2024-02-13 18:20 | ECG ---
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
[2024-02-13 19:00] VITALS: BP 146/53; PULSE 71; RESP 20; TEMP 98.7; O2SAT 93; O2SAT 94
[2024-02-13 20:00] VITALS: PULSE 71; PULSE 75; PULSE 92; O2SAT 93
[2024-02-13] MEDS: FUROSEMIDE 40 MG/4 ML VIAL IV SCH (20:14)
[2024-02-13] MEDS ORDERED: OXY5T PO (20:46)
[2024-02-13] MEDS ORDERED: AMIO200T13 PO (20:46)
[2024-02-13 21:00] VITALS: BP 146/53; PULSE 71; RESP 20; TEMP 98.7; O2SAT 93
[2024-02-13 21:34] VITALS: BP 146/53; PULSE 71; RESP 20; TEMP 98.7; O2SAT 93
[2024-02-13] MEDS: GABAPENTIN 300 MG CAP PO SCH (21:36)
[2024-02-13] MEDS: HYDROcodone-ACET 5/325MG TAB PO SCH (21:38)
[2024-02-14] VITALS (11 sets, daily range): BP systolic 123–141; BP diastolic 51–63; PULSE 69–78; RESP 16–91; TEMP 98.3–98.7; O2SAT 91–98
[2024-02-14] MEDS: MORPHINE SULFATE INJ 2 MG/ml SYRG IV PRN (01:43)
[2024-02-14 07:09] LABS: Anion Gap 8 (5-15); Carbon Dioxide 27 mmol/L (20-31); Chloride 104 mmol/L (98-107); Potassium 4.1 mmol/L (3.5-5.1); Sodium 139 mmol/L (136-145)
[2024-02-14 07:10] LABS: Calcium 9.3 mg/dL (8.7-10.4)
[2024-02-14 07:13] LABS: Basophils # (auto) 0.1 10 ^3/uL (0-0.2); Basophils % (auto) 0.7 % (0.0-2.0); Eosinophils # (auto) 0.3 10 ^3/uL (0-0.8); Eosinophils % (auto) 4.1 % (0.0-7.0); Hematocrit 30.5 % (41.0-53.0); Hemoglobin 10.3 g/dL (13.5-17.5); Lymphocytes # (auto) 0.8 10 ^3/uL (0.4-5.4); Lymphocytes % (auto) 9.6 % (10.0-50.0); Mean Corpuscular Hemoglobin 31.9 pg (28.0-32.0); Mean Corpuscular Hgb Conc. 33.7 g/dL (32.0-36.0); Mean Corpuscular Volume 94.6 fL (80.0-100.0); Monocytes # (auto) 0.9 10 ^3/uL (0-1.3); Monocytes % (auto) 11.2 % (0.0-12.0); Neutrophils # (auto) 6.1 10 ^3/uL (1.6-8.6); Neutrophils % (auto) 74.4 % (37.0-80.0); Nucleated Red Blood Cells % 0.2 %; Platelet Count (auto) 197 10^3/uL (140-450); Red Blood Cells 3.23 10^6/uL (4.5-5.90); White Blood Cell 8.2 10^3/uL (4.4-10.8)
[2024-02-14 07:15] LABS: Blood Urea Nitrogen 26 mg/dL (9-23); Glucose 77 mg/dL (74-106)
[2024-02-14] MEDS: CHOLECALCIFEROL (VITD3) 1,000UNIT=25mCg TAB PO SCH (09:31)
[2024-02-14] MEDS: ATORVASTATIN 20 MG TAB PO SCH (09:31)
[2024-02-14] MEDS: PARoxetine 20 MG TAB PO SCH (09:31)
[2024-02-14] MEDS: CLOPIDOGREL BISULFATE 75 MG TAB PO SCH (09:32)
[2024-02-14] MEDS: AMIODARONE HCL 200 MG TAB PO SCH (09:32)
[2024-02-14] MEDS: TAMSULOSIN HYDROCHLORIDE 0.4 MG CAP PO SCH (09:32)
[2024-02-14] MEDS: metFORMIN HYDROCHLORIDE 500 MG TAB PO SCH (09:32)
[2024-02-14] MEDS: FERROUS SULFATE 325mg EC TAB PO SCH (09:33)
[2024-02-14] MEDS: cefTRIAXone 1GM/50ML D5W 50 ML IV SCH (09:34)
[2024-02-14] MEDS: predniSONE 20 MG TAB PO SCH (09:34)
[2024-02-14] MEDS ORDERED: PATIENTS OWN MEDICATION (Rosuvastatin Calcium (Crestor) 1 TAB) PO SCH (10:00)
[2024-02-14] MEDS: IPRATROPIUM BROM 0.5 MG/2.5ML INH SOL NEB PRN (11:10)
[2024-02-14] MEDS: ALBUTEROL SULF 2.5 MG/0.5ML(0.5%) NEB SOLN NEB PRN (11:10)
--- NOTE | 2024-02-14 13:41 | DVHPN2 ---
Reviewed: Care Plan, H&P, Labs, Medications, Previous Orders, Radiology Changes from previous H/P or p: No Changes Eyes: No Pain, No Vision change, No Conjunctivae inflammation, No Eyelid inflammation, No Other, No Redness ENT: No Ear pain, No Ear discharge, No Nose pain, No Nose discharge, No Nose congestion, No Mouth pain, No Mouth swelling, No Throat pain, No Throat swelling, No Other Cardiovascular: Chest Pain, Palpitations Respiratory: No Cough, No Dry, No Shortness of breath, No SOB with excertion, No Wheezing, No Hemoptysis, No Pleuritic Pain, No Sputum, No Other Gastrointestinal: No Nausea; Vomiting, Abdominal Pain; No Diarrhea, No Constipation, No Melena, No Hematochezia, No Other Genitourinary: Dysuria, Frequency; No Incontinence, No Hematuria, No Retention, No Other Musculoskeletal: No other, No neck pain, No shoulder pain, No arm pain, No back pain, No hand pain, No leg pain, No foot pain Skin: No Rash, No Lesions, No Jaundice, No Bruising, No Other Objective Vitals Vital Signs Date Time Temp Pulse Resp B/P (MAP) Pulse Ox O2 Delivery O2 Flow Rate FiO2 02/14/24 11:16 78 18 98 02/14/24 11:10 Nasal Cannula 3.0 02/14/24 11:10 32 02/14/24 10:04 98.7 124/51 (75) 98.7 Intake/Output Intake and Output 02/14/24 07:00 Intake Total 2320 ml Output Total 1400 ml Balance 920 ml Intake Oral 820 ml IV Total 1500 ml Output Urine Total 1400 ml Medications Current Medications Medications Dose Ordered Sig/[place] Route Start Time Stop Time Status Last Admin Dose Admin Amiodarone HCl 200 mg DAILY PO 02/14/24 10:00 02/14/24 09:32 200 MG Atorvastatin Calcium 20 mg DAILY PO 02/14/24 10:00 02/14/24 09:31 20 MG Clopidogrel Bisulfate 75 mg DAILY PO 02/14/24 10:00 02/14/24 09:32 75 MG Gabapentin 600 mg BID PO 02/13/24 22:00 02/14/24 09:30 600 MG Acetaminophen/ Hydrocodone Bitart 1 tab BID PO 02/13/24 22:00 02/14/24 09:34 1 TAB Metformin HCl 500 mg DAILY PO 02/14/24 10:00 02/14/24 09:32 500 MG Paroxetine HCl 40 mg DAILY PO 02/14/24 10:00 02/14/24 09:31 40 MG Tamsulosin HCl 0.4 mg DAILY PO 02/14/24 10:00 02/14/24 09:32 0.4 MG Cholecalciferol 2,000 unit DAILY PO 02/14/24 10:00 02/14/24 09:31 2,000 UNIT Ferrous Sulfate 325 mg DAILY PO 02/14/24 10:00 02/14/24 09:33 325 MG Patient Own Medication 1 tab DAILY PO 02/14/24 10:00 02/14/24 09:37 1 TAB Sodium Chloride 1,000 ml @ 100 mls/hr Q10H IV 02/13/24 15:45 02/14/24 11:45 100 MLS/HR Lorazepam 0.5 mg Q6HP PRN PO 02/13/24 15:45 Al Hydrox/Mg Hydrox/Simethicone 30 ml Q6HP PRN PO 02/13/24 15:45 Docusate Sodium 100 mg BIDPRN PRN PO 02/13/24 15:45 Acetaminophen 650 mg Q6HP PRN PO 02/13/24 15:45 Acetaminophen/ Hydrocodone Bitart 1 tab Q4HP PRN PO 02/13/24 15:45 Ondansetron HCl 4 mg Q4HP PRN IV 02/13/24 15:45 Morphine Sulfate 2 mg Q4HPRN PRN IV 02/13/24 15:45 02/14/24 01:43 2 MG Nitroglycerin 0.4 mg Q5MINP PRN SL 02/13/24 15:45 Morphine Sulfate 2 mg Q30M PRN IV 02/13/24 15:45 Furosemide 40 mg BIDD IV 02/13/24 18:00 02/14/24 07:11 40 MG Albuterol 2.5 mg Q6HPRN PRN NEB 02/13/24 16:00 02/14/24 11:10 2.5 MG Ipratropium [place] 0.5 mg Q6HPRN PRN NEB 02/13/24 16:00 02/14/24 11:10 0.5 MG Prednisone 20 mg DAILY PO 02/14/24 10:00 02/14/24 09:34 20 MG Ceftriaxone Sodium 50 ml @ 100 mls/hr DAILY@09 IV 02/14/24 09:00 02/14/24 09:34 100 MLS/HR Laboratory Results Laboratory Tests 02/14/24 06:33 Chemistry Test 02/14/24 06:33 Calcium Level 9.3 mg/dL (8.7-10.4) Urinalysis Test 02/13/24 16:20 Urine Color Yellow (Yellow) Urine Clarity Turbid (Clear) H Urine pH 6.0 (5.0-9.0) Urine Specific [place] 1.022 (1.001-1.035) Urine Protein 1+ (Negative) H Urine Ketones Negative (Negative) Urine Blood 3+ /uL (Negative) H Urine Nitrite Negative (Negative) Urine Bilirubin Negative (Negative) Urine Urobilinogen Normal mg/dL (Negative) Urine Leukocyte Esterase 2+ /uL (Negative) Urine RBC 663 /hpf (0 - 3) Urine WBC 52 /hpf (0 - 3) Urine Squamous Epithelial Cells Few /hpf (<5) Urine Bacteria None seen /hpf (None Seen) Urine Yeast (Budding) Few /hpf (None Seen) Urine Glucose Normal mg/dL (Normal) Labs and/or images reviewed: Labs reviewed by me, Image(s) reviewed by me Assessment/Plan Assessment/Plan Septic shock with altered mental status hypotension secondary to acute urinary tract infection Acute urinary tract infection: Blood cultures urine cultures Rocephin Non ST-elevation [place] with borderline elevation of troponin: Treatment per ACS protocol, 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 Chronic anemia Acute metabolic encephalopathy Uncontrolled diabetes: Insulin sliding scale Hypertension Acute on chronic COPD exacerbation BPH History of PA History of esophageal cancer Status post Port-A-Cath Hypercholesterolemia CT head negative Chest x-ray shows old rib fractures on the left side Cachexia Severe malnutrition Time spent 65 minutes Condition guarded Patient is full code Advanced care planning time 20 minutes Plan discussed with: Patient Date of Service: Feb 14, 2024 Billing Provider: FLORI DUPREE MD Common Visit Codes: [id number] CARE 30-74 MIN FLORI DUPREE MD Feb 14, 2024 13:41
[2024-02-14] MEDS: LORazepam 0.5 MG TAB PO PRN (14:21)
[2024-02-14 15:22] LABS: Urine Amorphous Crystal FEW /hpf (None Seen); Urine Bacteria FEW /hpf (None Seen); Urine Blood 3+ /uL (Negative); Urine Budding Yeast MODERATE /hpf (None Seen); Urine Clarity Turbid (Clear); Urine Color Light-Yellow (Yellow); Urine Hyaline Cast FEW /lpf (0 - 2); Urine Mucus FEW (None Seen); Urine Protein, UAD Negative (Negative); Urine Urobilinogen Normal (Negative); Urine WBC 41 /hpf (0 - 3); Urine pH 5.5 (5.0-9.0)
[2024-02-15] VITALS (12 sets, daily range): BP systolic 114–147; BP diastolic 51–60; PULSE 67–82; RESP 16–22; TEMP 97.9–98.4; O2SAT 93–98
--- NOTE | 2024-02-15 09:48 | DVHINCON2 ---
DATE OF CONSULTATION: 02/14/2024 REFERRING PHYSICIAN: Dr. Bynum. CONSULTING PHYSICIAN: Dr. Arambula. INDICATION: Elevated troponin. HISTORY OF PRESENT ILLNESS: The patient is a 78-year-old male with history of esophageal cancer, diabetes, hypertension, presented to the hospital with complaints of generalized body weakness. The patient was noted to be hypotensive at presentation. His troponin noted to be mildly elevated with no significant trend up. The patient denies prior history of heart disease. Denies any chest pain. Denies any worsening shortness of breath. PAST MEDICAL HISTORY: * Esophageal cancer. * Hypertension. * Diabetes. MEDICATIONS: Per med rec. ALLERGIES: No known drug allergies. PHYSICAL EXAMINATION: GENERAL: Alert and awake, in no form of acute cardiopulmonary distress. VITAL SIGNS: Blood pressure 140/60, pulse 78 per minute, saturation 93%. HEENT: No carotid bruits. No jugular venous distention. CHEST: Bilateral air entry. CARDIOVASCULAR: Submucosal and palpable. Normal S1, S2. Regular rate and rhythm. No appreciable gallop, rubs, or clicks. EXTREMITIES: No peripheral edema. DIAGNOSTIC DATA: Troponin first set is 68, second set is 72 and third set is 64. Sodium 138, potassium 5.1, creatinine is 1.7. White count 8, hemoglobin 10, platelet is 197. ASSESSMENT: * Generalized body weakness. * Failure to thrive. * Esophageal cancer. * Elevated troponin, likely demand, doubt acute coronary syndrome. * Anemia. * Hypertension. * Dyslipidemia. RECOMMENDATIONS: * Continue with statin therapy. * Continue Plavix. * Monitor electrolytes. * Continue IV antibiotics. * Obtain echo. * Continue tele monitoring. * If echo unremarkable, no further cardiac workup indicated. Thank you for allowing me to participate in the care of this patient. MD BREANA Castle/CORWIN TID: [id number] RECEIPT: [id number]
--- NOTE | 2024-02-15 09:52 | DVHPN2 ---
Reviewed: Care Plan, H&P, Labs, Medications, Previous Orders, Radiology Changes from previous H/P or p: No Changes Eyes: No Pain, No Vision change, No Conjunctivae inflammation, No Eyelid inflammation, No Other, No Redness ENT: No Ear pain, No Ear discharge, No Nose pain, No Nose discharge, No Nose congestion, No Mouth pain, No Mouth swelling, No Throat pain, No Throat swelling, No Other Cardiovascular: Chest Pain, Palpitations Respiratory: No Cough, No Dry, No Shortness of breath, No SOB with excertion, No Wheezing, No Hemoptysis, No Pleuritic Pain, No Sputum, No Other Gastrointestinal: No Nausea; Vomiting, Abdominal Pain; No Diarrhea, No Constipation, No Melena, No Hematochezia, No Other Genitourinary: Dysuria, Frequency; No Incontinence, No Hematuria, No Retention, No Other Musculoskeletal: No other, No neck pain, No shoulder pain, No arm pain, No back pain, No hand pain, No leg pain, No foot pain Skin: No Rash, No Lesions, No Jaundice, No Bruising, No Other Objective Vitals Vital Signs Date Time Temp Pulse Resp B/P (MAP) Pulse Ox O2 Delivery O2 Flow Rate FiO2 02/15/24 08:00 94 Nasal Cannula* 3 32 02/15/24 06:04 147/59 02/15/24 04:53 98.1 68 22 98.1 Intake/Output Intake and Output 02/15/24 07:00 Intake Total 2860 ml Output Total 2000 ml Balance 860 ml Intake Oral 1710 ml IV Total 1150 ml Output Urine Total 2000 ml # Bowel Movements 2 Medications Current Medications Medications Dose Ordered Sig/[place] Route Start Time Stop Time Status Last Admin Dose Admin Amiodarone HCl 200 mg DAILY PO 02/14/24 10:00 02/15/24 08:30 200 MG Atorvastatin Calcium 20 mg DAILY PO 02/14/24 10:00 02/14/24 09:31 20 MG Clopidogrel Bisulfate 75 mg DAILY PO 02/14/24 10:00 02/15/24 08:31 75 MG Gabapentin 600 mg BID PO 02/13/24 22:00 02/15/24 08:29 600 MG Acetaminophen/ Hydrocodone Bitart 1 tab BID PO 02/13/24 22:00 02/15/24 08:31 1 TAB Metformin HCl 500 mg DAILY PO 02/14/24 10:00 02/15/24 08:30 500 MG Paroxetine HCl 40 mg DAILY PO 02/14/24 10:00 02/15/24 08:29 40 MG Tamsulosin HCl 0.4 mg DAILY PO 02/14/24 10:00 02/15/24 08:31 0.4 MG Cholecalciferol 2,000 unit DAILY PO 02/14/24 10:00 02/15/24 08:32 2,000 UNIT Ferrous Sulfate 325 mg DAILY PO 02/14/24 10:00 02/15/24 08:31 325 MG Patient Own Medication 1 tab DAILY PO 02/14/24 10:00 Sodium Chloride 1,000 ml @ 100 mls/hr Q10H IV 02/13/24 15:45 02/15/24 07:45 100 MLS/HR Lorazepam 0.5 mg Q6HP PRN PO 02/13/24 15:45 02/15/24 08:30 0.5 MG Al Hydrox/Mg Hydrox/Simethicone 30 ml Q6HP PRN PO 02/13/24 15:45 Docusate Sodium 100 mg BIDPRN PRN PO 02/13/24 15:45 Acetaminophen 650 mg Q6HP PRN PO 02/13/24 15:45 Acetaminophen/ Hydrocodone Bitart 1 tab Q4HP PRN PO 02/13/24 15:45 Ondansetron HCl 4 mg Q4HP PRN IV 02/13/24 15:45 Morphine Sulfate 2 mg Q4HPRN PRN IV 02/13/24 15:45 02/14/24 01:43 2 MG Nitroglycerin 0.4 mg Q5MINP PRN SL 02/13/24 15:45 Morphine Sulfate 2 mg Q30M PRN IV 02/13/24 15:45 Furosemide 40 mg BIDD IV 02/13/24 18:00 02/15/24 06:04 40 MG Albuterol 2.5 mg Q6HPRN PRN NEB 02/13/24 16:00 02/14/24 11:10 2.5 MG Ipratropium [place] 0.5 mg Q6HPRN PRN NEB 02/13/24 16:00 02/14/24 11:10 0.5 MG Prednisone 20 mg DAILY PO 02/14/24 10:00 02/15/24 08:30 20 MG Ceftriaxone Sodium 50 ml @ 100 mls/hr DAILY@09 IV 02/14/24 09:00 02/15/24 08:29 100 MLS/HR Laboratory Results Laboratory Tests 02/14/24 06:33 Urinalysis Test 02/14/24 14:15 Urine Color Light-yellow (Yellow) Urine Clarity Turbid (Clear) H Urine pH 5.5 (5.0-9.0) Urine Specific [place] 1.010 (1.001-1.035) Urine Protein Negative (Negative) Urine Ketones Negative (Negative) Urine Blood 3+ /uL (Negative) H Urine Nitrite Negative (Negative) Urine Bilirubin Negative (Negative) Urine Urobilinogen Normal mg/dL (Negative) Urine Leukocyte Esterase 3+ /uL (Negative) Urine RBC 18 /hpf (0 - 3) Urine WBC 41 /hpf (0 - 3) Urine Squamous Epithelial Cells None seen /hpf (<5) Urine Amorphous Crystals Few /hpf (None Seen) Urine Bacteria Few /hpf (None Seen) H Urine Hyaline Casts Few /lpf (0 - 2) Urine Mucus Few (None Seen) Urine Yeast (Budding) Moderate /hpf (None Seen) Urine Glucose Normal mg/dL (Normal) Labs and/or images reviewed: Labs reviewed by me, Image(s) reviewed by me Assessment/Plan Assessment/Plan Septic shock with altered mental status hypotension secondary to acute urinary tract infection Acute urinary tract infection: Blood cultures urine cultures Rocephin Non ST-elevation [place] with borderline elevation of troponin: Treatment per ACS protocol, 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 Chronic anemia Acute metabolic encephalopathy Uncontrolled diabetes: Insulin sliding scale Hypertension Acute on chronic COPD exacerbation BPH History of OR 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 at [facility] Status post Port-A-Cath Hypercholesterolemia CT head negative Chest x-ray shows old rib fractures on the left side Sylvie at bed side [phone] She wants patient to be on hospice, but the patient wants to pursue chemo at [facility] Cachexia Severe malnutrition Time spent 65 minutes Condition guarded Patient is full code Advanced care planning time 20 minutes Plan discussed with: Patient My Orders Orders - LFORI DUPREE MD Procedure Category Date Status Time Blood Culture LEONEL 02/14/24 In Process 13:37 Urine Bacterial LEONEL 02/14/24 In Process Culture 13:37 Date of Service: Feb 15, 2024 Billing Provider: FLORI DUPREE MD Common Visit Codes: [id number] CARE 30-74 MIN FLORI DUPREE MD Feb 15, 2024 09:52
[2024-02-16] VITALS (12 sets, daily range): BP systolic 101–156; BP diastolic 60–80; PULSE 72–92; RESP 16–20; TEMP 97.5–98.1; O2SAT 90–98
[2024-02-16] MEDS: ONDANSETRON HCL 4 MG/2 ML VIAL IV PRN (03:38)
--- NOTE | 2024-02-16 09:47 | DVHPN2 ---
Reviewed: Care Plan, H&P, Labs, Medications, Previous Orders, Radiology Changes from previous H/P or p: No Changes Eyes: No Pain, No Vision change, No Conjunctivae inflammation, No Eyelid inflammation, No Other, No Redness ENT: No Ear pain, No Ear discharge, No Nose pain, No Nose discharge, No Nose congestion, No Mouth pain, No Mouth swelling, No Throat pain, No Throat swelling, No Other Cardiovascular: Chest Pain, Palpitations Respiratory: No Cough, No Dry, No Shortness of breath, No SOB with excertion, No Wheezing, No Hemoptysis, No Pleuritic Pain, No Sputum, No Other Gastrointestinal: No Nausea; Vomiting, Abdominal Pain; No Diarrhea, No Constipation, No Melena, No Hematochezia, No Other Genitourinary: Dysuria, Frequency; No Incontinence, No Hematuria, No Retention, No Other Musculoskeletal: No other, No neck pain, No shoulder pain, No arm pain, No back pain, No hand pain, No leg pain, No foot pain Skin: No Rash, No Lesions, No Jaundice, No Bruising, No Other Objective Vitals Vital Signs Date Time Temp Pulse Resp B/P (MAP) Pulse Ox O2 Delivery O2 Flow Rate FiO2 02/16/24 05:30 152/70 02/16/24 05:00 98.0 79 18 96 98.0 02/15/24 20:00 Nasal Cannula* 3 32 Intake/Output Intake and Output 02/16/24 06:59 Intake Total 2590 ml Output Total 1400 ml Balance 1190 ml Intake Oral 1840 ml IV Total 750 ml Output Urine Total 1400 ml Medications Current Medications Medications Dose Ordered Sig/[place] Route Start Time Stop Time Status Last Admin Dose Admin Amiodarone HCl 200 mg DAILY PO 02/14/24 10:00 02/15/24 08:30 200 MG Atorvastatin Calcium 20 mg DAILY PO 02/14/24 10:00 02/15/24 10:00 20 MG Clopidogrel Bisulfate 75 mg DAILY PO 02/14/24 10:00 02/15/24 08:31 75 MG Gabapentin 600 mg BID PO 02/13/24 22:00 02/15/24 22:05 600 MG Acetaminophen/ Hydrocodone Bitart 1 tab BID PO 02/13/24 22:00 02/16/24 03:43 1 TAB Metformin HCl 500 mg DAILY PO 02/14/24 10:00 02/15/24 08:30 500 MG Paroxetine HCl 40 mg DAILY PO 02/14/24 10:00 02/15/24 08:29 40 MG Tamsulosin HCl 0.4 mg DAILY PO 02/14/24 10:00 02/15/24 08:31 0.4 MG Cholecalciferol 2,000 unit DAILY PO 02/14/24 10:00 02/15/24 08:32 2,000 UNIT Ferrous Sulfate 325 mg DAILY PO 02/14/24 10:00 02/15/24 08:31 325 MG Patient Own Medication 1 tab DAILY PO 02/14/24 10:00 Sodium Chloride 1,000 ml @ 100 mls/hr Q10H IV 02/13/24 15:45 02/15/24 07:45 100 MLS/HR Lorazepam 0.5 mg Q6HP PRN PO 02/13/24 15:45 02/15/24 22:08 0.5 MG Al Hydrox/Mg Hydrox/Simethicone 30 ml Q6HP PRN PO 02/13/24 15:45 Docusate Sodium 100 mg BIDPRN PRN PO 02/13/24 15:45 Acetaminophen 650 mg Q6HP PRN PO 02/13/24 15:45 Acetaminophen/ Hydrocodone Bitart 1 tab Q4HP PRN PO 02/13/24 15:45 Ondansetron HCl 4 mg Q4HP PRN IV 02/13/24 15:45 02/16/24 03:38 4 MG Morphine Sulfate 2 mg Q4HPRN PRN IV 02/13/24 15:45 02/15/24 12:24 2 MG Nitroglycerin 0.4 mg Q5MINP PRN SL 02/13/24 15:45 Morphine Sulfate 2 mg Q30M PRN IV 02/13/24 15:45 Furosemide 40 mg BIDD IV 02/13/24 18:00 02/16/24 05:30 40 MG Albuterol 2.5 mg Q6HPRN PRN NEB 02/13/24 16:00 02/16/24 03:44 2.5 MG Ipratropium [place] 0.5 mg Q6HPRN PRN NEB 02/13/24 16:00 02/16/24 03:44 0.5 MG Prednisone 20 mg DAILY PO 02/14/24 10:00 02/15/24 08:30 20 MG Ceftriaxone Sodium 50 ml @ 100 mls/hr DAILY@09 IV 02/14/24 09:00 02/15/24 08:29 100 MLS/HR Laboratory Results Laboratory Tests 02/14/24 06:33 Urinalysis Test 02/14/24 14:15 Urine Color Light-yellow (Yellow) Urine Clarity Turbid (Clear) H Urine pH 5.5 (5.0-9.0) Urine Specific [place] 1.010 (1.001-1.035) Urine Protein Negative (Negative) Urine Ketones Negative (Negative) Urine Blood 3+ /uL (Negative) H Urine Nitrite Negative (Negative) Urine Bilirubin Negative (Negative) Urine Urobilinogen Normal mg/dL (Negative) Urine Leukocyte Esterase 3+ /uL (Negative) Urine RBC 18 /hpf (0 - 3) Urine WBC 41 /hpf (0 - 3) Urine Squamous Epithelial Cells None seen /hpf (<5) Urine Amorphous Crystals Few /hpf (None Seen) Urine Bacteria Few /hpf (None Seen) H Urine Hyaline Casts Few /lpf (0 - 2) Urine Mucus Few (None Seen) Urine Yeast (Budding) Moderate /hpf (None Seen) Urine Glucose Normal mg/dL (Normal) Microbiology Microbiology Date/Time Source Procedure Growth Status 02/14/24 16:40 Blood Blood Culture - Preliminary NO GROWTH AFTER 24 HOURS OF INCUBATION. 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 Advised demand ischemia no further workup Chronic anemia Acute metabolic encephalopathy Uncontrolled diabetes: Insulin sliding scale Hypertension Acute on chronic COPD exacerbation BPH History of [place] History of esophageal cancer two years ago status post chemo and radiation therapy seen by Dr. Mabel Dixon with spread to the liver on chemo at [facility] Hematemesis: Pantoprazole GI consult , per patient's the patient has had EGD one month ago at [facility], we will get medical records Status post Port-A-Cath Hypercholesterolemia CT head negative Chest x-ray shows old rib fractures on the left side Sylvie at bed side [phone] She wants patient to be on hospice, but the patient wants to pursue chemo at [facility] Cachexia Severe malnutrition Prognosis very poor Patient's whole family including and son at the bedside Time spent 65 minutes Condition guarded Patient is full code Advanced care planning time 20 minutes Plan discussed with: Patient Date of Service: Feb 16, 2024 Billing Provider: FLORI DUPREE MD Common Visit Codes: [id number] CARE 30-74 MIN FLORI DUPREE MD Feb 16, 2024 09:47
[2024-02-16] MEDS: PANTOPRAZOLE 40 MG/10 ML VIAL INJ IV SCH (11:03)
[2024-02-16] MEDS: D5W/SOD CHLO 0.9% 1,000 ML IV SCH (14:30)
--- NOTE | 2024-02-16 18:57 | PRN ---
Misceleneous Note Note Note 02/16/2024 REFERRING PROVIDER: DR. DUPREE REASON FOR CONSULTATION: ESOPHAGEAL CANCER, GI BLEED HISTORY OF PRESENT ILLNESS: The patient is a 78-year-old male with a past medical history significant for diabetes, hypertension, hyperlipidemia, with a history of esophageal cancer, status post chemotherapy and radiation therapy, with Port-A-Cath in place, admitted with complaints of weakness, NSTEMI and hematemesis. GI consultation is obtained for evaluation. Patient is on Plavix as well as iron. Patient has a history of C difficile colitis and history of diverticulitis in the past. Patient has recent history of UTI. History of COPD as well. Patient's wants the patient to be on hospice however it was pursue treatment at [facility]. PAST MEDICAL HISTORY: 1. Esophageal cancer 2. Hypertension 3. Hyperlipidemia 4. Diabetes 5. History of [place] 6. Diverticulitis history Current Medications Medications (Trade) Dose Ordered Sig/[place] Route Start Time Stop Time Status Last Admin Dose Admin Amiodarone HCl (Cordarone Tablet) 200 mg DAILY PO 02/14/24 10:00 02/15/24 08:30 200 MG Atorvastatin Calcium (Lipitor) 20 mg DAILY PO 02/14/24 10:00 02/15/24 10:00 20 MG Gabapentin (Neurontin Capsule) 600 mg BID PO 02/13/24 22:00 02/15/24 22:05 600 MG Acetaminophen/ Hydrocodone Bitart ([place] 5/325MG Tab) 1 tab BID PO 02/13/24 22:00 02/16/24 03:43 1 TAB Metformin HCl (Glucophage) 500 mg DAILY PO 02/14/24 10:00 02/15/24 08:30 500 MG Paroxetine HCl (Paxil Tablet) 40 mg DAILY PO 02/14/24 10:00 02/15/24 08:29 40 MG Tamsulosin HCl (Flomax) 0.4 mg DAILY PO 02/14/24 10:00 02/15/24 08:31 0.4 MG Cholecalciferol (Vitamin D3 Tablet) 2,000 unit DAILY PO 02/14/24 10:00 02/15/24 08:32 2,000 UNIT Ferrous Sulfate 325 mg DAILY PO 02/14/24 10:00 02/15/24 08:31 325 MG Lorazepam (Ativan Tablet) 0.5 mg Q6HP PRN PO 02/13/24 15:45 02/15/24 22:08 0.5 MG Al Hydrox/Mg Hydrox/Simethicone (Maalox Plus) 30 ml Q6HP PRN PO 02/13/24 15:45 Docusate Sodium (Colace Capsule) 100 mg BIDPRN PRN PO 02/13/24 15:45 Acetaminophen (Tylenol Tablet) 650 mg Q6HP PRN PO 02/13/24 15:45 Acetaminophen/ Hydrocodone Bitart ([place] 5/325MG Tab) 1 tab Q4HP PRN PO 02/13/24 15:45 Ondansetron HCl (Zofran) 4 mg Q4HP PRN IV 02/13/24 15:45 02/16/24 11:03 4 MG Morphine Sulfate 2 mg Q4HPRN PRN IV 02/13/24 15:45 02/16/24 17:27 2 MG Nitroglycerin (Ntrostat Sublingual) 0.4 mg Q5MINP PRN SL 02/13/24 15:45 Morphine Sulfate 2 mg Q30M PRN IV 02/13/24 15:45 Furosemide (Lasix Injection) 40 mg BIDD IV 02/13/24 18:00 02/16/24 18:08 40 MG Albuterol (Ventolin Medneb) 2.5 mg Q6HPRN PRN NEB 02/13/24 16:00 02/16/24 03:44 2.5 MG Ipratropium [place] (Atrovent Medneb) 0.5 mg Q6HPRN PRN NEB 02/13/24 16:00 02/16/24 03:44 0.5 MG Prednisone 20 mg DAILY PO 02/14/24 10:00 02/15/24 08:30 20 MG Ceftriaxone Sodium 50 ml @ 100 mls/hr DAILY@09 IV 02/14/24 09:00 02/16/24 11:03 100 MLS/HR Pantoprazole Sodium (Protonix) 40 mg BID IV 02/16/24 10:00 02/16/24 11:03 40 MG Dextrose/Sodium Chloride 1,000 ml @ 100 mls/hr Q10H IV 02/16/24 14:30 02/16/24 14:30 100 MLS/HR ALLERGIES: No known drug allergies Review of systems Systems as per HPI: Vital Signs Date Time Temp Pulse Resp B/P (MAP) Pulse Ox O2 Delivery O2 Flow Rate FiO2 02/16/24 18:08 117/60 02/16/24 18:08 73 18 02/16/24 17:00 97.8 96 97.8 02/16/24 09:53 Nasal Cannula* 3 32 PHYSICAL EXAMINATION: General: Alert and oriented x4 in no distress , cachectic-appearing male HEENT: Normocephalic atraumatic extraocular intact pupils equal round react length have been Heart: Regular rate and rhythm Abdomen: Soft nontender nondistended normoactive bowel sounds Extremity: No clubbing cyanosis or edema Labs noted Hemoglobin stable at 10 Impression: 78-year-old male with admission for weakness, NSTEMI 1. Esophageal cancer 2. Hypertension 3. Diabetes 4. History of diverticulitis 5. History of C difficile colitis Recommendations: 1. Follow H and H 2. Per Cardiology continue with Plavix 3. Continue with Protonix 4. Continue with iron 5. Hold off on any endoscopy at this time as the patient is on anticoagulation ANTONETTE KU MD Feb 16, 2024 18:57
[2024-02-17] VITALS (8 sets, daily range): BP systolic 110–140; BP diastolic 58–80; PULSE 65–76; RESP 15–93; TEMP 97.8–98.5; O2SAT 18–98
--- NOTE | 2024-02-17 09:29 | DVHINCON2 ---
Date of service: Feb 17, 2024 Referring Physician Flori Dupree MD Reason for Consultation Esophageal cancer History of Present Illness Martin Lopez is a 78-year-old male with history of esophageal cancer, diabetes, hypertension, presented to the hospital with complaints of generalized body weakness. Pertinent labs on presentation: hemoglobin 10.1, creatinine 1.77, troponin elevated at 68. CT head on presentation: 1. Motion limited study. 2. No CT evidence of acute intracranial abnormality. 3. Nonacute findings as detailed above. CONSULT CANCELLED by Dr. Dupree as patient was planned to be discharged Therefore, patient not seen or evaluated. Past Medical History COPD, O2 dependent at home, diabetes, MA, diverticulitis, history of C diff, esophageal cancer (completed chemo radiation approximately 6 months ago - has a Port-A-Cath), wheelchair-dependent, Past Surgical History Appendectomy and tonsillectomy Family History: Cardiovascular disease G8 MOTHER, , Age: 43 G8 FATHER, , Age: 72 G8 BROTHER G8 SISTER Cerebrovascular accident (CVA) G8 MOTHER, , Age: 43 FH: aneurysm G8 SISTER FH: heart attack G8 BROTHER G8 SISTER Hypercholesterolemia G8 MOTHER, , Age: 43 G8 FATHER, , Age: 72 G8 BROTHER G8 SISTER Hypertension G8 BROTHER G8 SISTER Allergies: Coded Allergies: Lorazepam (Verified Adverse Reaction, Severe, HALLUCINATIONS, 02/15/24) Home Meds Active Scripts Hydrocodone-Acetaminophen (Hydrocodone Bitartrate/AC 5-325 mg) 1 Tab Tab, 1 TAB PO BID for 5 Days, #10 TAB Prov:DENISSE FORMAN MD 09/27/23 Atorvastatin Calcium (Lipitor) 20 Mg Tab, 1 TAB PO DAILY, #90 TAB 1 Refill Prov:FLORI DUPREE MD 06/26/23 Reported Medications Amiodarone HCl (Amiodarone HCl) 200 Mg Tab, 1 TAB PO DAILY 02/13/24 Oxycodone Hcl (OXYCODONE HCL) 5 Mg Tb, 1 TAB PO Q4HPRN PRN for moderate pain 02/13/24 Calcium Carbonate-Mag Hydrox (Rolaids Antacid Ultra Str 1000-200 mg/5Ml) 1 Michelle Michelle, 1 MICHELLE PO, ML 09/12/23 Cholecalciferol (D3) 2,000 Unit Tab, 2000 UNIT PO DAILY, TAB 06/25/23 Fluticasone-Salmeterol (Wixela Inhub 100-50 Mcg/Dose) 1 Aer Aer, IN, AER 06/25/23 Ipratropium [place] Hfa (Atrovent Hfa) 17 Mcg Aer, 17 MCG IN, AER 06/25/23 Clopidogrel Bisulfate (CLOPIDOGREL) 75 Mg Tab, 75 MG PO DAILY for 30 Days, MG 06/25/23 Paroxetine (PAXIL TABLET) 20 Mg Tb, 40 MG PO DAILY, TAB 06/25/23 Rosuvastatin Calcium (Crestor) 10 Mg Tab, 1 TAB PO DAILY, #90 TAB 3 Refills 06/25/23 Metformin Hydrochloride (Metformin Hcl) 500 Mg Tab, 500 MG PO DAILY for 30 Days, MG 06/25/23 Omeprazole (Gnp Omeprazole) 20 Mg Tab, 1 TAB PO DAILY, #90 TAB 3 Refills 06/25/23 Gabapentin (Gabapentin) 100 Mg Cap, 600 MG PO BID for neuropathy 06/25/23 Tamsulosin Hcl (Tamsulosin Hcl) 0.4 Mg Cap, 1 CAP PO 06/25/23 Discontinued Reported Medications Amiodarone Hcl (Amiodarone Hcl) 200 Mg Tab, 200 MG PO DAILY for 30 Days 06/25/23 Ferrous Sulfate (Ferosul) 325 Mg Tab, 1 TAB PO DAILY 06/25/23 Current Medications Current Medications Medications (Trade) Dose Ordered Sig/[place] Route PRN Reason Start Time Stop Time Status Last Admin Pantoprazole Sodium (Protonix) 40 mg BID IV 02/16/24 10:00 02/17/24 08:52 Dextrose/Sodium Chloride 1,000 ml @ 100 mls/hr Q10H IV 02/16/24 14:30 02/16/24 14:30 Vital Signs Vital Signs Date Time Temp Pulse Resp B/P (MAP) Pulse Ox O2 Delivery O2 Flow Rate FiO2 02/17/24 06:02 98 Nasal Cannula 4.0 02/17/24 06:02 36 02/17/24 05:29 110/58 02/17/24 05:00 97.8 93 97.8 02/17/24 01:00 72 Labs/Diagnostic Data Labs Test 02/14/24 14:15 02/14/24 06:33 02/13/24 15:13 02/13/24 12:19 Range/Units Urine Color Light-yellow Yellow Urine Clarity Turbid H Clear Urine pH 5.5 5.0-9.0 Urine Specific [place] 1.010 1.001-1.035 Urine Protein Negative Negative Urine Ketones Negative Negative Urine Blood 3+ H Negative /uL Urine Nitrite Negative Negative Urine Bilirubin Negative Negative Urine Urobilinogen Normal Negative mg/dL Urine Leukocyte Esterase 3+ Negative /uL Urine RBC 18 0 - 3 /hpf Urine WBC 41 0 - 3 /hpf Urine Squamous Epithelial Cells None seen <5 /hpf Urine Amorphous Crystals Few None Seen /hpf Urine Bacteria Few H None Seen /hpf Urine Hyaline Casts Few 0 - 2 /lpf Urine Mucus Few None Seen Urine Yeast (Budding) Moderate None Seen /hpf Urine Glucose Normal Normal mg/dL White Blood Count 8.2 4.4-10.8 10^3/uL Red Blood Count 3.23 L 4.5-5.90 10^6/uL Hemoglobin 10.3 L 13.5-17.5 g/dL Hematocrit 30.5 L 41.0-53.0 % Mean Corpuscular Volume 94.6 80.0-100.0 fL Mean Corpuscular Hemoglobin 31.9 28.0-32.0 pg Mean Corpuscular Hemoglobin Concent 33.7 32.0-36.0 g/dL Red Cell Distribution Width 17.0 H 11.8-14.3 % Platelet Count 197 140-450 10^3/uL Mean Platelet Volume 6.9 6.9-10.8 fL Neutrophils (%) (Auto) 74.4 37.0-80.0 % Lymphocytes (%) (Auto) 9.6 L 10.0-50.0 % Monocytes (%) (Auto) 11.2 0.0-12.0 % Eosinophils (%) (Auto) 4.1 0.0-7.0 % Basophils (%) (Auto) 0.7 0.0-2.0 % Neutrophils # (Auto) 6.1 1.6-8.6 10 ^3/uL Lymphocytes # (Auto) 0.8 0.4-5.4 10 ^3/uL Monocytes # (Auto) 0.9 0-1.3 10 ^3/uL Eosinophils # (Auto) 0.3 0-0.8 10 ^3/uL Basophils # (Auto) 0.1 0-0.2 10 ^3/uL Nucleated Red Blood Cells 0.2 % Sodium Level 139 136-145 mmol/L Potassium Level 4.1 3.5-5.1 mmol/L Chloride Level 104 98-107 mmol/L Carbon Dioxide Level 27 20-31 mmol/L Anion Gap 8 5-15 Blood Urea Nitrogen 26 H 9-23 mg/dL Creatinine 1.37 H 0.700-1.30 mg/dL Glomerular Filtration Rate Calc 52 >90 mL/min BUN/Creatinine Ratio 19.0 10.0-20.0 Serum Glucose 77 74-106 mg/dL Calcium Level 9.3 8.7-10.4 mg/dL Troponin I High Sensitivity 64 *H </=54 ng/L Magnesium Level 2.1 1.6-2.6 mg/dL Total Bilirubin 0.4 0.2-1.0 mg/dL Aspartate Amino Transferase (AST) 38 13-40 U/L Alanine Aminotransferase (ALT) 14 7-40 U/L Alkaline Phosphatase 137 H 46-116 U/L B-Type Natriuretic Peptide 177.99 0-100 pg/mL Total Protein 6.3 5.7-8.2 g/dL Albumin 4.1 3.2-4.8 g/dL Test 02/13/24 12:12 02/13/24 12:03 Range/Units Lactic Acid Level 1.0 0.4-2.0 mmol/L POC Glucose 108 H 70-106 mg/dl Microbiology Date/Time Source Procedure Growth Status 02/14/24 16:40 Blood Blood Culture - Preliminary NO GROWTH AFTER 48 HOURS OF INCUBATION. Resulted 02/14/24 14:15 Nose MRSA Screen - Final Complete 02/13/24 16:20 Voided Urine Urine Culture - Preliminary Yeast, not Onelia albicans Resulted XOCHILT PENN MD Feb 17, 2024 09:29
--- NOTE | 2024-02-17 09:58 | DVHPN2 ---
Reviewed: Care Plan, H&P, Labs, Medications, Previous Orders, Radiology Changes from previous H/P or p: No Changes Eyes: No Pain, No Vision change, No Conjunctivae inflammation, No Eyelid inflammation, No Other, No Redness ENT: No Ear pain, No Ear discharge, No Nose pain, No Nose discharge, No Nose congestion, No Mouth pain, No Mouth swelling, No Throat pain, No Throat swelling, No Other Cardiovascular: Chest Pain, Palpitations Respiratory: No Cough, No Dry, No Shortness of breath, No SOB with excertion, No Wheezing, No Hemoptysis, No Pleuritic Pain, No Sputum, No Other Gastrointestinal: No Nausea; Vomiting, Abdominal Pain; No Diarrhea, No Constipation, No Melena, No Hematochezia, No Other Genitourinary: Dysuria, Frequency; No Incontinence, No Hematuria, No Retention, No Other Musculoskeletal: No other, No neck pain, No shoulder pain, No arm pain, No back pain, No hand pain, No leg pain, No foot pain Skin: No Rash, No Lesions, No Jaundice, No Bruising, No Other Objective Vitals Vital Signs Date Time Temp Pulse Resp B/P (MAP) Pulse Ox O2 Delivery O2 Flow Rate FiO2 02/17/24 06:02 98 Nasal Cannula 4.0 02/17/24 06:02 36 02/17/24 05:29 110/58 02/17/24 05:00 97.8 93 97.8 02/17/24 01:00 72 Intake/Output Intake and Output 02/17/24 07:00 Intake Total 1525 ml Output Total 2200 ml Balance -675 ml Intake Oral 475 ml IV Total 1050 ml Output Urine Total 2200 ml Medications Current Medications Medications Dose Ordered Sig/[place] Route Start Time Stop Time Status Last Admin Dose Admin Amiodarone HCl 200 mg DAILY PO 02/14/24 10:00 02/17/24 08:55 200 MG Atorvastatin Calcium 20 mg DAILY PO 02/14/24 10:00 02/17/24 08:56 20 MG Gabapentin 600 mg BID PO 02/13/24 22:00 02/17/24 08:53 600 MG Acetaminophen/ Hydrocodone Bitart 1 tab BID PO 02/13/24 22:00 02/17/24 08:55 1 TAB Metformin HCl 500 mg DAILY PO 02/14/24 10:00 02/17/24 08:53 500 MG Paroxetine HCl 40 mg DAILY PO 02/14/24 10:00 02/17/24 08:58 40 MG Tamsulosin HCl 0.4 mg DAILY PO 02/14/24 10:00 02/17/24 08:56 0.4 MG Cholecalciferol 2,000 unit DAILY PO 02/14/24 10:00 02/17/24 08:55 2,000 UNIT Ferrous Sulfate 325 mg DAILY PO 02/14/24 10:00 02/17/24 08:55 325 MG Lorazepam 0.5 mg Q6HP PRN PO 02/13/24 15:45 02/15/24 22:08 0.5 MG Al Hydrox/Mg Hydrox/Simethicone 30 ml Q6HP PRN PO 02/13/24 15:45 Docusate Sodium 100 mg BIDPRN PRN PO 02/13/24 15:45 Acetaminophen 650 mg Q6HP PRN PO 02/13/24 15:45 Acetaminophen/ Hydrocodone Bitart 1 tab Q4HP PRN PO 02/13/24 15:45 Ondansetron HCl 4 mg Q4HP PRN IV 02/13/24 15:45 02/16/24 11:03 4 MG Morphine Sulfate 2 mg Q4HPRN PRN IV 02/13/24 15:45 02/16/24 17:27 2 MG Nitroglycerin 0.4 mg Q5MINP PRN SL 02/13/24 15:45 Morphine Sulfate 2 mg Q30M PRN IV 02/13/24 15:45 Furosemide 40 mg BIDD IV 02/13/24 18:00 02/17/24 05:29 40 MG Albuterol 2.5 mg Q6HPRN PRN NEB 02/13/24 16:00 02/16/24 03:44 2.5 MG Ipratropium [place] 0.5 mg Q6HPRN PRN NEB 02/13/24 16:00 02/16/24 03:44 0.5 MG Prednisone 20 mg DAILY PO 02/14/24 10:00 02/17/24 08:52 20 MG Ceftriaxone Sodium 50 ml @ 100 mls/hr DAILY@09 IV 02/14/24 09:00 02/17/24 08:52 100 MLS/HR Pantoprazole Sodium 40 mg BID IV 02/16/24 10:00 02/17/24 08:52 40 MG Dextrose/Sodium Chloride 1,000 ml @ 100 mls/hr Q10H IV 02/16/24 14:30 02/16/24 14:30 100 MLS/HR Laboratory Results Laboratory Tests 02/14/24 06:33 Urinalysis Test 02/14/24 14:15 Urine Color Light-yellow (Yellow) Urine Clarity Turbid (Clear) H Urine pH 5.5 (5.0-9.0) Urine Specific [place] 1.010 (1.001-1.035) Urine Protein Negative (Negative) Urine Ketones Negative (Negative) Urine Blood 3+ /uL (Negative) H Urine Nitrite Negative (Negative) Urine Bilirubin Negative (Negative) Urine Urobilinogen Normal mg/dL (Negative) Urine Leukocyte Esterase 3+ /uL (Negative) Urine RBC 18 /hpf (0 - 3) Urine WBC 41 /hpf (0 - 3) Urine Squamous Epithelial Cells None seen /hpf (<5) Urine Amorphous Crystals Few /hpf (None Seen) Urine Bacteria Few /hpf (None Seen) H Urine Hyaline Casts Few /lpf (0 - 2) Urine Mucus Few (None Seen) Urine Yeast (Budding) Moderate /hpf (None Seen) Urine Glucose Normal mg/dL (Normal) Microbiology Microbiology Date/Time Source Procedure Growth Status 02/14/24 16:40 Blood Blood Culture - Preliminary NO GROWTH AFTER 48 HOURS OF INCUBATION. 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 Advised demand ischemia no further workup Chronic anemia Acute metabolic encephalopathy Uncontrolled diabetes: Insulin sliding scale Hypertension Acute on chronic COPD exacerbation BPH History of [place] History of esophageal cancer two years ago status post chemo and radiation therapy seen by Dr. Mabel Dixon with spread to the liver on chemo at [facility], consult by Oncologist Dr. Biswas appreciated Hematemesis: Pantoprazole GI consult by Dr. Venus Larson appreciated , no endoscopy advised at this time, per patient's the patient has had EGD one month ago at [facility], Status post Port-A-Cath Hypercholesterolemia CT head negative Chest x-ray shows old rib fractures on the left side Sylvie at bed side [phone] She wants patient to be on hospice, but the patient wants to pursue chemo at [facility] Cachexia Severe malnutrition Prognosis very poor Patient's whole family including and son at the bedside Time spent 65 minutes Condition guarded Patient is full code Advanced care planning time 20 minutes Plan discussed with: Patient My Orders Orders - FLORI DUPREE MD Procedure Category Date Status Time Pantoprazole PHA 02/16/24 In Process (Protonix) 10:00 * Gi Dvh Fly Tier CONS 02/16/24 Transmitted 09:50 * Hematology/Oncology CONS 02/16/24 Transmitted Consult 09:51 D5w/Sod Chlo 0.9% PHA 02/16/24 In Process (D5w Ns 0.9%) 14:30 Date of Service: Feb 17, 2024 Billing Provider: FLORI DUPREE MD Common Visit Codes: [id number] INP/OBS CARE(HIGH) FLORI DUPREE MD Feb 17, 2024 09:58
--- NOTE | 2024-02-17 10:11 | DVHDS2 ---
Discharge Summary Date of Admission Feb 13, 2024 at 15:33 Date of Discharge: Feb 17, 2024 Admitting Diagnosis Failure to thrive Wounds: None Labs/Diagnostic Data: Laboratory Results Test 02/14/24 14:15 02/14/24 06:33 02/13/24 15:13 02/13/24 12:19 Urine Color Light-yellow (Yellow) Urine Clarity Turbid (Clear) Urine pH 5.5 (5.0-9.0) Urine Specific [place] 1.010 (1.001-1.035) Urine Protein Negative (Negative) Urine Ketones Negative (Negative) Urine Blood 3+ /uL (Negative) Urine Nitrite Negative (Negative) Urine Bilirubin Negative (Negative) Urine Urobilinogen Normal mg/dL (Negative) Urine Leukocyte Esterase 3+ /uL (Negative) Urine RBC 18 /hpf (0 - 3) Urine WBC 41 /hpf (0 - 3) Urine Squamous Epithelial Cells None seen /hpf (<5) Urine Amorphous Crystals Few /hpf (None Seen) Urine Bacteria Few /hpf (None Seen) Urine Hyaline Casts Few /lpf (0 - 2) Urine Mucus Few (None Seen) Urine Yeast (Budding) Moderate /hpf (None Seen) Urine Glucose Normal mg/dL (Normal) White Blood Count 8.2 10^3/uL (4.4-10.8) Red Blood Count 3.23 10^6/uL (4.5-5.90) Hemoglobin 10.3 g/dL (13.5-17.5) Hematocrit 30.5 % (41.0-53.0) Mean Corpuscular Volume 94.6 fL (80.0-100.0) Mean Corpuscular Hemoglobin 31.9 pg (28.0-32.0) Mean Corpuscular Hemoglobin Concent 33.7 g/dL (32.0-36.0) Red Cell Distribution Width 17.0 % (11.8-14.3) Platelet Count 197 10^3/uL (140-450) Mean Platelet Volume 6.9 fL (6.9-10.8) Neutrophils (%) (Auto) 74.4 % (37.0-80.0) Lymphocytes (%) (Auto) 9.6 % (10.0-50.0) Monocytes (%) (Auto) 11.2 % (0.0-12.0) Eosinophils (%) (Auto) 4.1 % (0.0-7.0) Basophils (%) (Auto) 0.7 % (0.0-2.0) Neutrophils # (Auto) 6.1 10 ^3/uL (1.6-8.6) Lymphocytes # (Auto) 0.8 10 ^3/uL (0.4-5.4) Monocytes # (Auto) 0.9 10 ^3/uL (0-1.3) Eosinophils # (Auto) 0.3 10 ^3/uL (0-0.8) Basophils # (Auto) 0.1 10 ^3/uL (0-0.2) Nucleated Red Blood Cells 0.2 % Sodium Level 139 mmol/L (136-145) Potassium Level 4.1 mmol/L (3.5-5.1) Chloride Level 104 mmol/L (98-107) Carbon Dioxide Level 27 mmol/L (20-31) Anion Gap 8 (5-15) Blood Urea Nitrogen 26 mg/dL (9-23) Creatinine 1.37 mg/dL (0.700-1.30) Glomerular Filtration Rate Calc 52 mL/min (>90) BUN/Creatinine Ratio 19.0 (10.0-20.0) Serum Glucose 77 mg/dL (74-106) Calcium Level 9.3 mg/dL (8.7-10.4) Troponin I High Sensitivity 64 ng/L (</=54) Magnesium Level 2.1 mg/dL (1.6-2.6) Total Bilirubin 0.4 mg/dL (0.2-1.0) Aspartate Amino Transferase (AST) 38 U/L (13-40) Alanine Aminotransferase (ALT) 14 U/L (7-40) Alkaline Phosphatase 137 U/L (46-116) B-Type Natriuretic Peptide 177.99 pg/mL (0-100) Total Protein 6.3 g/dL (5.7-8.2) Albumin 4.1 g/dL (3.2-4.8) Test 02/13/24 12:12 02/13/24 12:03 Lactic Acid Level 1.0 mmol/L (0.4-2.0) POC Glucose 108 mg/dl (70-106) Other Laboratory Tests 02/14/24 06:33 Brief Hx & Hospital Course: 78-year-old male with a history of esophageal cancer spread to the liver being treated at [facility] had EGD one month ago at [facility]. Came in for generalized weakness and also chest pain. Patient was found to be in septic shock with altered mental status and hypotension secondary to acute urinary tract infection patient was started on Rocephin urine cultures grew yeast, not Onelia placed on micafungin. Non ST-elevation FL with a borderline elevation of troponin treated per ACS protocol cardiology consult by Dr. Murrieta felt to be demand ischemia and advised no further workup . Patient had bout of hematemesis seen by GI Dr Venus Larson advised no further workup in view of recent endoscopy. also seen by Oncology Dr. Monroe. CT head negative chest x-ray negative. Patient has history of FL for which he was on Plavix also BPH COPD hypertension diabetes and chronic anemia he also has a old left rib fractures patient has Port-A-Cath . Had a long discussion with the patient his is son and grandson. All the family members wanted the patient to be placed on hospice but the patient at this time is not willing to go on hospice and requesting shelter facility for rehab. 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 Advised demand ischemia no further workup Chronic anemia Acute metabolic encephalopathy Uncontrolled diabetes: Insulin sliding scale Hypertension Acute on chronic COPD exacerbation BPH History of FL History of esophageal cancer two years ago status post chemo and radiation therapy seen by Dr. Mabel Dixon with spread to the liver on chemo at [facility], consult by Oncologist Dr. Biswas appreciated Hematemesis: Pantoprazole GI consult by Dr. Venus Larson appreciated , no endoscopy advised at this time, per patient's the patient has had EGD one month ago at [facility], Status post Port-A-Cath Hypercholesterolemia CT head negative Chest x-ray shows old rib fractures on the left side Sylvie at bed side [phone] She wants patient to be on hospice, but the patient wants to pursue chemo at [facility] Cachexia Severe malnutrition Discharge Disposition: Group Home Facility Discharge Instruct/Medications Diet: Cardiac 2g Na,low cholest Activity: Light activity Follow Up/Referral: Follow up with the [facility] Medications: see list 39 (Time Taken for discharge summary 39 minutes) Discharge Statement: "Patient was advised to return to the ER or call 911 if any headaches, dizziness, shortness of breath, chest pain, abdominal pain, bleeding, fevers, or worsening of medical condition. Patient was counseled about treatment plan, medications, possible side effects, patientverbalized understanding. All questions were answered to the best of my ability. 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 Advised demand ischemia no further workup Chronic anemia Acute metabolic encephalopathy Uncontrolled diabetes: Insulin sliding scale Hypertension Acute on chronic COPD exacerbation BPH History of FL History of esophageal cancer two years ago status post chemo and radiation therapy seen by Dr. Mabel Dixon with spread to the liver on chemo at [facility], consult by Oncologist Dr. Biswas appreciated Hematemesis: Pantoprazole GI consult by Dr. Venus Larson appreciated , no endoscopy advised at this time, per patient's the patient has had EGD one month ago at [facility], Status post Port-A-Cath Hypercholesterolemia CT head negative Chest x-ray shows old rib fractures on the left side Sylvie at bed side [phone] She wants patient to be on hospice, but the patient wants to pursue chemo at [facility] Cachexia Severe malnutrition Date of Service: Feb 17, 2024 Billing Provider: FLORI DUPREE MD Common Visit Codes: 63373-UFX/OBS DISCH DAY >30min FLORI DUPREE MD Feb 17, 2024 10:11
[2024-02-17] MEDS: CLOPIDOGREL BISULFATE 75 MG TAB PO ONE (14:10)
--- NOTE | 2024-02-17 19:09 | PRN ---
Misceleneous Note Note Note 02/17/2024 Subjective: Patient is stable. Discharge is pending. Current Medications Medications (Trade) Dose Ordered Sig/[place] Route PRN Reason Start Time Stop Time Status Last Admin Micafungin Sodium 100 mg/Sodium Chloride 100 ml @ 100 mls/hr DAILY IV 02/18/24 10:00 02/17/24 17:59 DC Clopidogrel Bisulfate (Plavix) 75 mg DAILY PO 02/18/24 10:00 02/17/24 17:59 DC Vital Signs Date Time Temp Pulse Resp B/P (MAP) Pulse Ox O2 Delivery O2 Flow Rate FiO2 02/17/24 17:00 65 17 140/60 (86) 93 02/17/24 16:38 97.8 02/17/24 08:00 Nasal Cannula* 3 32 General: Alert elderly cachectic-appearing male Regular rate and rhythm Soft nontender nondistended abdomen No clubbing cyanosis or edema Muscle wasting and extremities Impression: 78-year-old male with admission for weakness, NSTEMI 1. Esophageal cancer 2. Hypertension 3. Diabetes 4. History of diverticulitis 5. History of C difficile colitis Recommendations: 1. Follow H and H 2. Per Cardiology continue with Plavix 3. Continue with Protonix 4. Continue with iron 5. Hold off on any endoscopy at this time as the patient is on anticoagulation 6. Outpatient follow-up with [facility] Oncology ANTONETTE KU MD Feb 17, 2024 19:09
[2024-02-18] MEDS ORDERED: MICAFUNGIN SODIUM 100 MG in SODIUM CHL 0.9% 100 ML IV SCH (10:00)
[2024-02-18] MEDS ORDERED: CLOPIDOGREL BISULFATE 75 MG TAB PO SCH (10:00)
== END 2024-02-17 17:23 | DRG 871 ==
LOC: ER 11:36 → EDBD 11:36 → TELE 15:33 → TELE-EAST 18:25
PROVIDERS: ADMIT Hospitalist; ATTEND Family Medicine
DX: A41.9 Sepsis, unspecified organism (principal); E43 Unspecified severe protein-calorie malnutrition; I21.4 Non-ST elevation (NSTEMI) myocardial infarction; G93.41 Metabolic encephalopathy; R65.21 Severe sepsis with septic shock; N17.9 Acute kidney failure, unspecified; C15.9 Malignant neoplasm of esophagus, unspecified; J44.1 Chronic obstructive pulmonary disease with (acute) exacerbation; N39.0 Urinary tract infection, site not specified; K92.0 Hematemesis; R79.89 Other specified abnormal findings of blood chemistry; D64.9 Anemia, unspecified; E78.00 Pure hypercholesterolemia, unspecified; I10 Essential (primary) hypertension; E11.9 Type 2 diabetes mellitus without complications; I95.89 Other hypotension; R62.7 Adult failure to thrive; N40.0 Benign prostatic hyperplasia without lower urinary tract symptoms; Z99.81 Dependence on supplemental oxygen; Z87.891 Personal history of nicotine dependence; Z85.01 Personal history of malignant neoplasm of esophagus; Z92.21 Personal history of antineoplastic chemotherapy; Z92.3 Personal history of irradiation; Z51.5 Encounter for palliative care; Z68.21 Body mass index [BMI] 21.0-21.9, adult
CPT/HCPCS: 36415; 70450; 71045; 80048; 80053; 81001; 82962; 83605; 83735; 83880; 84484; 85025; 87040; 87081; 87086; 87088; 87186; 93005; 94640; 96360; 97163; G0378; J2405; J2470; J7042

== ENCOUNTER 2024-02-23 07:02 | Inpatient (IN) | payer MEDICARE, BC ==
[~2024-02-23] VITALS: Ht 180.3 cm; Wt 66.5 kg
[~2024-02-23 07:02] MED LIST changes: +AMIO200T13 PO; -AMIO200T33 PO; -CEFD300C2 PO; -DOXY1CAP57 PO; -FERR325T20 PO; -HYDR1TAB97 PO; +OXY5T PO; -PRED20TA2 PO
[2024-02-23 09:09] LABS: Hemoglobin 14.9 g/dL (13.5-17.5); Mean Corpuscular Hemoglobin 30.9 pg (28.0-32.0); Mean Corpuscular Hgb Conc. 32.5 g/dL (32.0-36.0); Mean Corpuscular Volume 94.9 fL (80.0-100.0); Platelet Count (auto) 253 10^3/uL (140-450); Red Blood Cells 4.84 10^6/uL (4.5-5.90); Red Cell Distribution Width 18.1 % (11.8-14.3); White Blood Cell 15.7 10^3/uL (4.4-10.8)
[2024-02-23 09:19] LABS: Band Neutrophils % (manual) 0; Basophils % (manual) 0 (0.0-2.0); Blast Cells 0; Eosinophils % (manual) 0 (0-7); Metamyelocytes % 0; Myelocytes % 0; Promyelocytes % 0; Reactive Lymphocytes 0
[2024-02-23 09:27] LABS: Anion Gap 10 (5-15); Bilirubin, Total 0.4 mg/dL (0.2-1.0); Sodium 139 mmol/L (136-145); Total Protein 7.4 g/dL (5.7-8.2)
[2024-02-23 10:10] LABS: Lymphocytes % (manual) 11 (10.0-50.0); Monocytes % (manual) 12 (0-12); Platelet Estimate Adequate
[2024-02-23 10:22] LABS: Albumin 4.9 g/dL (3.2-4.8); Alkaline Phosphatase 189 U/L (46-116); Aspartate Aminotransferase 80 U/L (13-40); BUN/Creatinine Ratio 27.8 (10.0-20.0); Blood Urea Nitrogen 35 mg/dL (9-23); Calcium 11.9 mg/dL (8.7-10.4); Carbon Dioxide 37 mmol/L (20-31); Chloride 92 mmol/L (98-107); Glucose 119 mg/dL (74-106); Potassium 5.1 mmol/L (3.5-5.1)
[2024-02-23 10:25] LABS: Alanine Aminotransferase 38 U/L (7-40)
--- NOTE | 2024-02-23 10:28 | ED.PDOC ---
GI ASSESSMENT HPI Comments 78 y.o male coming from [facility].presents to the ED via EMS for a chief complaint of hemoptysis that started last night around 2200 that is associated with diffused abdominal and throat pain. Patient describes pain as a burning sensation and is constant with no alleviating factors. Patient states 2 days ago, he had similar episode but prior to then, no history of hematemesis or hemoptysis. Patient has a current history of esophageal cancer x years with recent diagnose of liver cancer and is pending chemotherapy treatment at [facility]. Patient denies any fever, chills, or chest pain/ Additional medical history includes COPD, on 3 liters of oxygen, DM, HDL, HTN, UTI, and diverticulitis. Chief Complaint: Nausea/Vomiting Time Seen by MD: 08:02 Primary Care Provider: pt does not know Reviewed Notes: Nurses Notes, Medications, Allergies Allergies: Coded Allergies: Lorazepam (Verified Adverse Reaction, Severe, HALLUCINATIONS, 02/15/24) Home Meds Active Scripts Hydrocodone-Acetaminophen (Hydrocodone Bitartrate/AC 5-325 mg) 1 Tab Tab, 1 TAB PO BID for 5 Days, #10 TAB Prov:DENISSE FORMAN MD 09/27/23 Atorvastatin Calcium (Lipitor) 20 Mg Tab, 1 TAB PO DAILY, #90 TAB 1 Refill Prov:FLORI DUPREE MD 06/26/23 Reported Medications Amiodarone HCl (Amiodarone HCl) 200 Mg Tab, 1 TAB PO DAILY 02/13/24 Oxycodone Hcl (OXYCODONE HCL) 5 Mg Tb, 1 TAB PO Q4HPRN PRN for moderate pain 02/13/24 Calcium Carbonate-Mag Hydrox (Rolaids Antacid Ultra Str 1000-200 mg/5Ml) 1 Michelle Michelle, 1 MICHELLE PO, ML 09/12/23 Cholecalciferol (D3) 2,000 Unit Tab, 2000 UNIT PO DAILY, TAB 06/25/23 Fluticasone-Salmeterol (Wixela Inhub 100-50 Mcg/Dose) 1 Aer Aer, IN, AER 06/25/23 Ipratropium [place] Hfa (Atrovent Hfa) 17 Mcg Aer, 17 MCG IN, AER 06/25/23 Clopidogrel Bisulfate (CLOPIDOGREL) 75 Mg Tab, 75 MG PO DAILY for 30 Days, MG 06/25/23 Paroxetine (PAXIL TABLET) 20 Mg Tb, 40 MG PO DAILY, TAB 06/25/23 Rosuvastatin Calcium (Crestor) 10 Mg Tab, 1 TAB PO DAILY, #90 TAB 3 Refills 06/25/23 Metformin Hydrochloride (Metformin Hcl) 500 Mg Tab, 500 MG PO DAILY for 30 Days, MG 06/25/23 Omeprazole (Gnp Omeprazole) 20 Mg Tab, 1 TAB PO DAILY, #90 TAB 3 Refills 06/25/23 Gabapentin (Gabapentin) 100 Mg Cap, 600 MG PO BID for neuropathy 06/25/23 Tamsulosin Hcl (Tamsulosin Hcl) 0.4 Mg Cap, 1 CAP PO 06/25/23 Information Source: Patient Mode of Arrival: EMS Timing: Hours Duration: Since onset Vomitus: None Stool: Normal Severity: Moderate Recent: None Recent Hx of: None Pain Location: None Modifying Factors: Nothing Associated sign and symptoms: Hematemesis Past Medical History PAST MEDICAL HISTORY: Cancer, COPD, DM, HTN, UTI'S Surgical History: Appendectomy, Tonsillectomy Family History Family History: Reviewed,noncontributory to illness, Family hx of DM, Family hx of HTN Social History Smoker: Quit Greater Than 1 Year, Cigarettes Alcohol: Denies ETOH Use Drugs: Denies Drug Use Lives In: Home Constitutional: denies: chills, diaphoresis, fatigue, fever, malaise, sweats, weakness, others EENTM: denies: blurred vision, double vision, ear bleeding, ear discharge, ear drainage, ear pain, ear ringing, eye pain, eye redness, hearing loss, mouth pain, mouth swelling, nasal discharge, nose bleeding, nose congestion, nose pain, photophobia, tearing, throat pain, throat swelling, voice changes, others Respiratory: reports: hemoptysis; denies: cough, orthopnea, SOB at rest, shortness of breath, SOB with excertion, stridor, wheezing, others Cardiovascular: denies: chest pain, dizzy spells, diaphoresis, Dyspnea on exertion, edema, irregular heart beat, left arm pain, lightheadedness, palp itations, PND, syncope, others Gastrointestinal: denies: abdomen distended, abdominal pain, blood streaked bowels, constipated, diarrhea, dysphagia, difficulty swallowing, hematemesis, melena, nausea, poor appetite, poor fluid intake, rectal bleeding, rectal pain, vomiting, others Genitourinary: denies: burning, dysuria, flank pain, frequency, hematuria, incontinence, penile discharge, penile sore, pain, testicle pain, testicle swelling, urgency, others Neurological: denies: dizziness, fainting, headache, left sided numbness, left sided weakness, numbness, paresthesia, pre-existing deficit, right sided numbness, right sided weakness, seizure, speech problems, tingling, tremors, weakness, others Musculoskeletal: denies: back pain, gout, joint pain, joint swelling, muscle pain, muscle stiffness, neck pain, others Integumetry: denies: bruises, change in color, change in hair/nails, dryness, laceration, lesions, lumps, rash, wounds, others Allergic/Immunocompromised: denies: Difficulty Healing, Frequent Infections, Hives, Itching, others Hematologic/Lymphatic: denies: anemia, blood clots, easy bleeding, easy brui sing, swollen glands, others Endocrine: denies: excessive hunger, excessive sweating, excessive thirst, ex cessive urination, flushing, intolerance to cold, intolerance to heat, unexplained weight gain, unexplained weight loss, others Psychiatric: denies: anxiety, bipolar disorder, depression, hopeless, panic disorder, schizophrenia, sleepless, suicidal, others All Other Systems: Reviewed and Negative Physical Exam General Appearance: No Apparent Distress, Normal HEENT: Normal ENT Inspection, Pharynx Normal, TMs Normal Neck: Normal, Normal Inspection Respiratory: Chest Non-Tender, Lungs Clear, No Accessory Muscle Use, No Respiratory Distress, Normal Breath Sounds Cardiovascular: Other (Port-A-Cath in placed to right chestwall region ) Breast Exam: Deferred Gastrointestinal: LUQ, Tenderness, Other (evidence of brown emesis on his gown ) Genitalia: Deferred Pelvic: Deferred Rectal: Deferred Extremities: Normal inspection Musculoskeletal : Apperance: Normal Neurologic: Alert, life insurance actuary II-XII nml as Tested, No Motor Deficits, Normal Affect, Normal Mood, No Sensory Deficits Cerebellar Function: Normal Reflexes: NOT DONE Skin: Dry, Normal Color, Warm Lymphatic: No Adenopathy EKG EKG : Comments 93 AFIB. Diffused inverted T wave V4, V5, V6 Was a procedure done? Was a procedure done?: No GI differential Dx Differential Diagnosis: GI hemorrhage, Anemia, Esophageal Varicies X-Ray, Labs, Meds, VS Vital Signs Date Time Temp Pulse Resp B/P (MAP) Pulse Ox O2 Delivery O2 Flow Rate FiO2 02/23/24 12:00 75 02/23/24 11:00 85 18 93 Nasal Cannula* 3 32 02/23/24 11:00 98.2 85 18 120/78 (92) 93 98.2 02/23/24 08:18 93 02/23/24 07:21 97.9 80 16 151/88 (109) 91 Lab Test 02/23/24 09:44 02/23/24 08:56 Range/Units Troponin I High Sensitivity 33 32 </=54 ng/L White Blood Count 15.7 H 4.4-10.8 10^3/uL Red Blood Count 4.84 4.5-5.90 10^6/uL Hemoglobin 14.9 13.5-17.5 g/dL Hematocrit 46.0 41.0-53.0 % Mean Corpuscular Volume 94.9 80.0-100.0 fL Mean Corpuscular Hemoglobin 30.9 28.0-32.0 pg Mean Corpuscular Hemoglobin Concent 32.5 32.0-36.0 g/dL Red Cell Distribution Width 18.1 H 11.8-14.3 % Platelet Count 253 140-450 10^3/uL Mean Platelet Volume 7.6 6.9-10.8 fL Neutrophils (%) (Auto) 37.0-80.0 % Lymphocytes (%) (Auto) 10.0-50.0 % Monocytes (%) (Auto) 0.0-12.0 % Basophils (%) (Auto) 0.0-2.0 % Neutrophils # (Auto) 1.6-8.6 10 ^3/uL Lymphocytes # (Auto) 0.4-5.4 10 ^3/uL Monocytes # (Auto) 0-1.3 10 ^3/uL Differential Total Cells Counted 100.0 100 Neutrophils % (Manual) 77 37.0-80.0 Band Neutrophils % (Manual) 0 Lymphocytes % (Manual) 11 10.0-50.0 Monocytes % (Manual) 12 0-12 Eosinophils % (Manual) 0 0-7 Basophils % (Manual) 0 0.0-2.0 Metamyelocytes % (manual) 0 Myelocytes % (Manual) 0 Promyelocytes % (Manual) 0 Blast Cells % (Manual) 0 Reactive Lymphocytes 0 Platelet Estimate Adequate Sodium Level 139 136-145 mmol/L Potassium Level 5.1 3.5-5.1 mmol/L Chloride Level 92 L 98-107 mmol/L Carbon Dioxide Level 37 H 20-31 mmol/L Anion Gap 10 5-15 Blood Urea Nitrogen 35 H 9-23 mg/dL Creatinine 1.26 0.700-1.30 mg/dL Glomerular Filtration Rate Calc 58 >90 mL/min BUN/Creatinine Ratio 27.8 H 10.0-20.0 Serum Glucose 119 H 74-106 mg/dL Calcium Level 11.9 H 8.7-10.4 mg/dL Total Bilirubin 0.4 0.2-1.0 mg/dL Aspartate Amino Transferase (AST) 80 H 13-40 U/L Alanine Aminotransferase (ALT) 38 7-40 U/L Alkaline Phosphatase 189 H 46-116 U/L Total Protein 7.4 5.7-8.2 g/dL Albumin 4.9 H 3.2-4.8 g/dL Current Medications Medications (Trade) Dose Ordered Sig/[place] Route Start Time Stop Time Status Last Admin Pantoprazole Sodium (Protonix) 40 mg ONCE ONCE IV 02/23/24 10:30 02/23/24 10:31 DC 02/23/24 11:11 Ondansetron HCl (Zofran) 4 mg ONCE ONCE IV 02/23/24 10:30 02/23/24 10:31 DC 02/23/24 11:11 Octreotide Acetate 500 mcg/ Sodium Chloride 100 ml @ 10 mls/hr Q10H IV 02/23/24 11:30 02/23/24 13:18 Octreotide Acetate 100 mcg/ Sodium Chloride 51 ml @ 204 mls/hr ONCE ONCE IV 02/23/24 11:30 02/23/24 11:44 DC 02/23/24 13:12 Pantoprazole Sodium 50 ml @ 10 mls/hr Q5H IV 02/23/24 11:30 02/23/24 16:08 78-year-old male presents here with upper GI bleed. Patient is has evidence of coffee-ground emesis on his gown. Has a history of esophageal carcinoma but states this has never occurred before. A CT of the chest abdomen pelvis has been done which does not demonstrate acute pathology. At this time I have written for Protonix and Zofran. Blood work demonstrates leukocytosis of 15. Evidence of mild acute kidney injury. At this time patient requires inpatient admission and gastroenterology consult. Time of 1ST Reevaluation: 11:20 Reevaluation 1ST: Unchanged Patient Education/Counseling: Diagnosis, Treatment, Prognosis Family Education/Counseling: No Family Present Departure 1 Departure Time of Disposition: 10:28 Impression: Primary Impression: GI bleed Qualified Codes: K92.2 - Gastrointestinal hemorrhage, unspecified Disposition: ADMITTED INPATIENT Admit to: Tele Condition: Guarded Critical Care Note Critical Care Time?: No Stability Stability form required: No Heart Score Heart Score: Heart Score Response (Comments) Value History N/A 0 EKG N/A 0 Age N/A 0 Risk Factors N/A 0 Troponin N/A 0 Total 0 I personally scribed for CAESAR VAZQUEZ MD ([email or web address]) on 02/23/24 at 11:20. Electronically submitted by Melody Cantu ([facility]). I personally scribed for CAESAR VAZQUEZ MD ([email or web address]) on 02/23/24 at 12:00. Electronically submitted by Melody Cantu ([facility]). I personally scribed for CAESAR VAZQUEZ MD ([email or web address]) on 02/23/24 at 16:59. Electronically submitted by Melody Cantu ([facility]). CAESAR VAZQUEZ MD Feb 23, 2024 10:28
[2024-02-23 11:00] VITALS: PULSE 85; RESP 18; O2SAT 93
[2024-02-23] MEDS: ONDANSETRON HCL 4 MG/2 ML VIAL IV ONE (11:11)
[2024-02-23] MEDS: PANTOPRAZOLE 40 MG/10 ML VIAL INJ IV ONE (11:11)
[2024-02-23] MEDS ORDERED: MORPHINE SULFATE INJ 2 MG/ml SYRG IV PRN ×2 (11:30→12:45)
[2024-02-23] MEDS: IOHEXOL 300 MG/ML 100ML BOTTLE IJ ONE (12:12)
--- NOTE | 2024-02-23 12:26 | DVH ---
CT CHEST, ABDOMEN AND PELVIS CLINICAL HISTORY: pt with esophageal/liver CA, now with GI bleed TECHNIQUE: Multiple contiguous axial images of the chest, abdomen and pelvis with intravenous contras t. The images were reformatted degenerate coronal and sagittal reconstructions. 100 cc of Omnipaque 300 contrast was injected intravenously. All CT scans at this medical facility are performed using dose modulation techniques as appropriate t o a performed exam including the following:Automated exposure control was utilized; adjustment of the MA and/or KV according to patient size; and use of iterative reconstruction technique. Radiation Dose Information: CT Dose: CTDI volume is 15.51 mGy. Dose-length product is 1039.64 mGy*cm FINDINGS: [Findings] There are severe emphysematous changes in the lungs with biapical pleural-parenchymal scarring. There is no evidence of lung consolidation or pulmonary mass. There is no evidence of pleural effusion or pneumothorax. The central airways are clear. There is no evidence of a mediastinal mass or lymphadenopathy. There is no hilar or axillary lymphad enopathy. The heart size within normal limits. There is no pericardial effusion. There is a right chest port c entral venous catheter. There is [id number] size hiatal hernia. The distal esophageal wall appears thickened. There is a large irregular poorly enhancing mass in the right hepatic lobe measuring approximately 11 .6 cm. This may represent primary hepatic malignancy versus metastatic disease. There are multiple bilateral renal cysts measuring up to 3.7 cm. There is no evidence of nephrolithia sis or hydronephrosis. The gallbladder, pancreas, adrenal glands, and spleen appear within normal limits. There is no evidence of mesenteric or retroperitoneal lymphadenopathy. There is no free fluid or free air. The small and large bowel loops demonstrate normal caliber. There are multiple diverticula in the di stal colon without evidence of acute diverticulitis. There is moderate amount of stool in the colon. The abdominal aorta and IVC appear within normal limits. There is moderate streak artifact from right hip arthroplasty limiting evaluation of the pelvis. The bladder is decompressed with [place] catheter. There is no gross evidence of a pelvic mass or lymphaden opathy. There is no free fluid collection. There is no acute osseous abnormality. There is no suspicious appearing osseous lesion. There chroni c left rib fractures. IMPRESSION: 1. Large irregular poorly enhancing mass in the right hepatic lobe measuring approximately 11.6 cm. T his may represent primary hepatic malignancy versus metastatic disease. 2. [id number] size hiatal hernia. The distal esophageal wall appears thickened. Correlation w ith endoscopy findings is recommended. 3. Severe emphysematous changes of the lungs. There is no evidence of lung consolidation or pulmonar y mass. 4. There is no evidence of metastatic lymphadenopathy in the chest, abdomen and pelvis. 5. Distal colon diverticulosis. HS:Y
[2024-02-23] MEDS ORDERED: NITROGLYCERIN 0.4 MG SL TAB SL PRN (12:45)
--- NOTE | 2024-02-23 12:59 | DVHHP2 ---
History of Present Illness Reason for Visit: Nausea/Vomiting History of Present Illness Martin Lopez is a 78-year-old male with past medical history of COPD on home O2, hypertension, diabetes, diverticulitis, esophageal and liver cancer, hyperlipidemia, and PR with stents, who came in for nausea and vomiting. Patient was recently admitted at this facility for similar complaints and discharged to [facility]. He came back today due to intractable nausea and vomiting of coffee grounds emesis. is at the bedside and able to provide most of his history. Patient is alert and oriented but tired from being up all night. Cardiovascular: HTN, PR (with stent), hyperipidemia Pulmonary: COPD Heme/Onc: Cancer (liver and esophageus) Endocrine: Diabetes Past Surgical History: Appendectomy, Tonsillectomy Smoke: No ALCOHOL: none Drugs: None Lives: with Family Domestic Violence: Neg Review of Systems Constitutional: No: Fever, Chills, Sweats, Weakness, Malaise, Other Eyes: No: Pain, Vision change, Conjunctivae inflammation, Eyelid inflammation, Other, Redness ENT: No: Ear pain, Ear discharge, Nose pain, Nose discharge, Nose congestion, Mouth pain, Mouth swelling, Throat pain, Throat swelling, Other Respiratory: No: Cough, Dry, Shortness of breath, SOB with excertion, Wheezing, Hemoptysis, Pleuritic Pain, Sputum, Wheezing, Other Cardiovascular: No: Chest Pain, Palpitations, Orthopnea, Paroxysmal Noc. Dyspnea, Edema, Lt Headedness, Other Gastrointestinal: Nausea, Vomiting, Abdominal Pain; No: Diarrhea, Constipation, Melena, Hematochezia, Other Genitourinary: No Dysuria, No Frequency, No Incontinence, No Hematuria, No Retention, No Other Musculoskeletal: No: other, neck pain, shoulder pain, arm pain, back pain, hand pain, leg pain, foot pain Skin: No: Rash, Lesions, Jaundice, Bruising, Other Neurological: No: Weakness, Numbness, Incoordination, Change in speech, C onfusion, Seizures, Other Allergies: Coded Allergies: Lorazepam (Verified Adverse Reaction, Severe, HALLUCINATIONS, 02/15/24) Medications Current Medications Medications Dose Ordered Sig/[place] Route Start Time Stop Time Status Last Admin Dose Admin Octreotide Acetate 500 mcg/ Sodium Chloride 100 ml @ 10 mls/hr Q10H IV 12/6/24 11:30 Pantoprazole Sodium 50 ml @ 10 mls/hr Q5H IV 02/23/24 11:30 Morphine Sulfate 2 mg Q4HPRN PRN IV 02/23/24 11:30 Ondansetron HCl 4 mg Q4HPRN PRN IV 02/23/24 11:30 Exam Vital Signs Vital Signs Date Time Temp Pulse Resp B/P (MAP) Pulse Ox O2 Delivery O2 Flow Rate FiO2 02/23/24 11:00 85 18 93 Nasal Cannula* 3 32 02/23/24 11:00 98.2 120/78 (92) 98.2 General Appearance: Alert, Oriented X3, moderate distress, Other (thin, ill apperaing) HEENT: Atraumatic, Other (Mucous membrain dry) Cardiovascular: Regular rate, Normal S1, Normal S2 Abdominal: Normal bowel sounds, Soft, Other (abdominal pain, vomiting coffee grounds) Extremities: No clubbing, No cyanosis, No edema Skin: No rashes, No breakdown Neuro: Normal speech, Strength at 5/5 X4 ext, Other (bedbound) Psych/Mental Status: Mental status NL, Mood NL Labs/Xrays Labs Test 02/23/24 09:44 02/23/24 08:56 Range/Units Troponin I High Sensitivity 33 </=54 ng/L White Blood Count 15.7 H 4.4-10.8 10^3/uL Red Blood Count 4.84 4.5-5.90 10^6/uL Hemoglobin 14.9 13.5-17.5 g/dL Hematocrit 46.0 41.0-53.0 % Mean Corpuscular Volume 94.9 80.0-100.0 fL Mean Corpuscular Hemoglobin 30.9 28.0-32.0 pg Mean Corpuscular Hemoglobin Concent 32.5 32.0-36.0 g/dL Red Cell Distribution Width 18.1 H 11.8-14.3 % Platelet Count 253 140-450 10^3/uL Mean Platelet Volume 7.6 6.9-10.8 fL Neutrophils (%) (Auto) 37.0-80.0 % Lymphocytes (%) (Auto) 10.0-50.0 % Monocytes (%) (Auto) 0.0-12.0 % Basophils (%) (Auto) 0.0-2.0 % Neutrophils # (Auto) 1.6-8.6 10 ^3/uL Lymphocytes # (Auto) 0.4-5.4 10 ^3/uL Monocytes # (Auto) 0-1.3 10 ^3/uL Differential Total Cells Counted 100.0 100 Neutrophils % (Manual) 77 37.0-80.0 Band Neutrophils % (Manual) 0 Lymphocytes % (Manual) 11 10.0-50.0 Monocytes % (Manual) 12 0-12 Eosinophils % (Manual) 0 0-7 Basophils % (Manual) 0 0.0-2.0 Metamyelocytes % (manual) 0 Myelocytes % (Manual) 0 Promyelocytes % (Manual) 0 Blast Cells % (Manual) 0 Reactive Lymphocytes 0 Platelet Estimate Adequate Sodium Level 139 136-145 mmol/L Potassium Level 5.1 3.5-5.1 mmol/L Chloride Level 92 L 98-107 mmol/L Carbon Dioxide Level 37 H 20-31 mmol/L Anion Gap 10 5-15 Blood Urea Nitrogen 35 H 9-23 mg/dL Creatinine 1.26 0.700-1.30 mg/dL Glomerular Filtration Rate Calc 58 >90 mL/min BUN/Creatinine Ratio 27.8 H 10.0-20.0 Serum Glucose 119 H 74-106 mg/dL Calcium Level 11.9 H 8.7-10.4 mg/dL Total Bilirubin 0.4 0.2-1.0 mg/dL Aspartate Amino Transferase (AST) 80 H 13-40 U/L Alanine Aminotransferase (ALT) 38 7-40 U/L Alkaline Phosphatase 189 H 46-116 U/L Total Protein 7.4 5.7-8.2 g/dL Albumin 4.9 H 3.2-4.8 g/dL CT CHEST, ABDOMEN AND PELVIS FINDINGS: [Findings] There are severe emphysematous changes in the lungs with biapical pleural- parenchymal scarring. There is no evidence of lung consolidation or pulmonary mass. There is no evidence of pleural effusion or pneumothorax. The central airways are clear. There is no evidence of a mediastinal mass or lymphadenopathy. There is no hilar or axillary lymphadenopathy. The heart size within normal limits. There is no pericardial effusion. There is a right chest port central venous catheter. There is [id number] size hiatal hernia. The distal esophageal wall appears thickened. There is a large irregular poorly enhancing mass in the right hepatic lobe measuring approximately 11.6 cm. This may represent primary hepatic malignancy versus metastatic disease. There are multiple bilateral renal cysts measuring up to 3.7 cm. There is no evidence of nephrolithiasis or hydronephrosis. The gallbladder, pancreas, adrenal glands, and spleen appear within normal limits. There is no evidence of mesenteric or retroperitoneal lymphadenopathy. There is no free fluid or free air. The small and large bowel loops demonstrate normal caliber. There are multiple diverticula in the distal colon without evidence of acute diverticulitis. There is moderate amount of stool in the colon. The abdominal aorta and IVC appear within normal limits. There is moderate streak artifact from right hip arthroplasty limiting evalua tion of the pelvis. The bladder is decompressed with [place] catheter. There is no gross evidence of a pelvic mass or lymphadenopathy. There is no free fluid collection. There is no acute osseous abnormality. There is no suspicious appearing osseous lesion. There chronic left rib fractures. IMPRESSION: 1. Large irregular poorly enhancing mass in the right hepatic lobe measuring approximately 11.6 cm. This may represent primary hepatic malignancy versus metastatic disease. 2. [id number] size hiatal hernia. The distal esophageal wall appears thickened. Correlation with endoscopy findings is recommended. 3. Severe emphysematous changes of the lungs. There is no evidence of lung consolidation or pulmonary mass. 4. There is no evidence of metastatic lymphadenopathy in the chest, abdomen and pelvis. 5. Distal colon diverticulosis. Assessment/Plan Assessment/Plan Assessment: GI bleed, Leukocytosis, Liver cancer, Bilateral renal cysts, COPD, Diabetes, Hyperlipidemia, Diverticulitis, Plan: Admit to Tele, GI consult, NPO, Sandostatin drip, Protonix drip, IV antibiotics, Antiemetics, Pain management, UA with reflux culture, Accu checks Q 6 hours while NPO, Home medications held at this time. Plan discussed with: Patient, Spouse My Orders Orders - CARLO VENEGAS Procedure Category Date Status Time Sodium Chl 0.9% PHA 02/23/24 In Process (So... W/Octreotide 11:30 Pantoprazole PHA 02/23/24 In Process 40mg/50ml Ns Ae 11:30 Morphine Sulfate PHA 02/23/24 In Process Injection 11:30 Ondansetron Hcl PHA 02/23/24 In Process (Zofran) 11:30 Admit ADMIT 02/23/24 Transmitted 12:40 Code Status CODE 02/23/24 Transmitted 12:40 0.9% Ns 1000 Ml PHA 02/23/24 Transmitted 12:45 Fall Risk Precautions [facility] 02/23/[address] 12:40 Complete Blood Count LAB 02/24/24 Verified 04:00 Comprehensive LAB 02/24/24 Verified Metabolic Panel 04:00 Npo (Nothing By DIET 02/23/24 Transmitted Mouth) Diet Lunch Condition: Serious TIFFANIE 02/23/24 Transmitted 12:40 Nitroglycerin [facility] 02/23/24 Transmitted Sublingual (Ntrostat 12:45 Morphine Sulfate PHA 02/23/24 Transmitted Injection 12:45 Stat Ekg For Chest [facility] 02/23/24 Transmitted Pain 12:40 Notify Md Of Changes [facility] 02/23/24 Transmitted From Base 12:40 [employer] For [facility] 02/23/24 Transmitted 24 Hours 12:40 Emergency Dysrhythmia [facility] 02/23/24 Transmitted Protocol 12:40 Rhythm Strips Once [facility] 02/23/24 Transmitted Every Shift 12:40 Oxygen By Nasal RT 02/23/24 Transmitted Cannula 12:40 * Gi Dvh [employer] CONS 02/23/24 Transmitted 12:40 Date of Service: Feb 23, 2024 Billing Provider: CARLO VENEGAS Common Visit Codes: [id number] INP/OBS CARE (MOD) CARLO VENEGAS Feb 23, 2024 12:59
[2024-02-23] MEDS: PANTOPRAZOLE 40mg/50ML NS AE 50 ML IV SCH (13:12)
[2024-02-23] MEDS: OCTREOTIDE ACETATE 100 MCG in SODIUM CHL 0.9% 50 ML IV ONE (13:12)
[2024-02-23] MEDS: OCTREOTIDE ACETATE 500 MCG in SODIUM CHL 0.9% 99 ML IV SCH (13:18)
[2024-02-23] MEDS: cefTRIAXone 1GM/50ML D5W 50 ML IV ONE (13:58)
[2024-02-23] MEDS: SODIUM CHLORIDE 0.9% 1,000 ML IV SCH (13:58)
[2024-02-23 15:56] LABS: Urine Bacteria FEW /hpf (None Seen); Urine Blood Negative /uL (Negative); Urine Budding Yeast OCCASIONAL /hpf (None Seen); Urine Clarity Clear (Clear); Urine Color Light-Yellow (Yellow); Urine Hyaline Cast FEW /lpf (0 - 2); Urine Protein, UAD TRACE (Negative); Urine Specific Gravity 1.014 (1.001-1.035); Urine Urobilinogen Normal (Negative); Urine WBC 7 /hpf (0 - 3); Urine pH 6.5 (5.0-9.0)
[2024-02-23] MEDS ORDERED: DEXTROSE (50%) 50ML SYRG IV PRN (17:00)
[2024-02-23] MEDS: ACCU-CHEK COMFORT CURVE STRIP VI SCH (18:24)
[2024-02-23] MEDS: InsuLIN REG 1unit/0.01ml Soln (100units/ml) SC SCH (18:29)
--- NOTE | 2024-02-23 18:34 | DVHINCON2 ---
Date of service: Feb 23, [address] verma Reason for Consultation Abdominal pain throat pain possible hematemesis and hemoptysis History of Present Illness This 78-year-old came to the emergency room from nose [facility] with complaints of abdominal pain throat pain some hematemesis and hemoptysis was patient had similar episode a few months ago. Patient has got stiff esophageal cancer and with metastases possibly to the liver and is undergoing chemotherapy at [facility] Patient's CT scan showed possible esophageal thickening possible lesion as well as a large mass lesion in the liver Past Medical History COPD diabetes hypertension UTI diverticulitis Past Surgical History None Family History: Cardiovascular disease G8 MOTHER, , Age: 43 G8 FATHER, , Age: 72 G8 BROTHER G8 SISTER Cerebrovascular accident (CVA) G8 MOTHER, , Age: 43 FH: aneurysm G8 SISTER FH: heart attack G8 BROTHER G8 SISTER Hypercholesterolemia G8 MOTHER, , Age: 43 G8 FATHER, , Age: 72 G8 BROTHER G8 SISTER Hypertension G8 BROTHER G8 SISTER Family History Noncontributory Social History History of smoking Allergies: Coded Allergies: Lorazepam (Verified Adverse Reaction, Severe, HALLUCINATIONS, 02/15/24) Home Meds Active Scripts Hydrocodone-Acetaminophen (Hydrocodone Bitartrate/AC 5-325 mg) 1 Tab Tab, 1 TAB PO BID for 5 Days, #10 TAB Prov:DENISSE FORMAN MD 09/27/23 Atorvastatin Calcium (Lipitor) 20 Mg Tab, 1 TAB PO DAILY, #90 TAB 1 Refill Prov:FLORI DUPREE MD 06/26/23 Reported Medications Amiodarone HCl (Amiodarone HCl) 200 Mg Tab, 1 TAB PO DAILY 02/13/24 Oxycodone Hcl (OXYCODONE HCL) 5 Mg Tb, 1 TAB PO Q4HPRN PRN for moderate pain 02/13/24 Calcium Carbonate-Mag Hydrox (Rolaids Antacid Ultra Str 1000-200 mg/5Ml) 1 Michelle Michelle, 1 MICHELLE PO, ML 09/12/23 Cholecalciferol (D3) 2,000 Unit Tab, 2000 UNIT PO DAILY, TAB 06/25/23 Fluticasone-Salmeterol (Wixela Inhub 100-50 Mcg/Dose) 1 Aer Aer, IN, AER 06/25/23 Ipratropium Whitman Hfa (Atrovent Hfa) 17 Mcg Aer, 17 MCG IN, AER 06/25/23 Clopidogrel Bisulfate (CLOPIDOGREL) 75 Mg Tab, 75 MG PO DAILY for 30 Days, MG 06/25/23 Paroxetine (PAXIL TABLET) 20 Mg Tb, 40 MG PO DAILY, TAB 06/25/23 Rosuvastatin Calcium (Crestor) 10 Mg Tab, 1 TAB PO DAILY, #90 TAB 3 Refills 06/25/23 Metformin Hydrochloride (Metformin Hcl) 500 Mg Tab, 500 MG PO DAILY for 30 Days, MG 06/25/23 Omeprazole (Gnp Omeprazole) 20 Mg Tab, 1 TAB PO DAILY, #90 TAB 3 Refills 06/25/23 Gabapentin (Gabapentin) 100 Mg Cap, 600 MG PO BID for neuropathy 06/25/23 Tamsulosin Hcl (Tamsulosin Hcl) 0.4 Mg Cap, 1 CAP PO 06/25/23 Current Medications Current Medications Medications (Trade) Dose Ordered Sig/[place] Route PRN Reason Start Time Stop Time Status Last Admin Octreotide Acetate 500 mcg/ Sodium Chloride 100 ml @ 10 mls/hr Q10H IV 02/23/24 11:30 02/23/24 13:18 Pantoprazole Sodium 50 ml @ 10 mls/hr Q5H IV 02/23/24 11:30 02/23/24 16:08 Morphine Sulfate 2 mg Q4HPRN PRN IV MODERATE PAIN (4-6 PAIN SCALE) 02/23/24 11:30 Ondansetron HCl (Zofran) 4 mg Q4HPRN PRN IV NAUSEA / VOMITING 02/23/24 11:30 Sodium Chloride 1,000 ml @ 60 mls/hr [id number] IV 02/23/24 12:45 02/23/24 13:58 Nitroglycerin (Ntrostat Sublingual) 0.4 mg Q5MINP PRN SL FOR CHEST PAIN 02/23/24 12:45 Morphine Sulfate 2 mg Q30M PRN IV FOR CHEST PAIN 02/23/24 12:45 Ceftriaxone Sodium 50 ml @ 100 mls/hr DAILY@09 IV 02/24/24 09:00 Diagnostic Test (Pha) (Accu-Chek Comfort Curve T) 1 strip Q6HR 02/23/24 18:00 02/23/24 18:24 Insulin Human Regular (InsuLIN R) Q6HR SC 02/23/24 18:00 Dextrose 50 ml UD PRN IV Blood Sugar LESS THAN 60 02/23/24 17:00 Review of Systems Noncontributory Vital Signs Vital Signs Date Time Temp Pulse Resp B/P (MAP) Pulse Ox O2 Delivery O2 Flow Rate FiO2 02/23/24 17:00 75 12 112/72 (85) 95 02/23/24 11:00 Nasal Cannula* 3 32 02/23/24 11:00 98.2 98.2 Physical Exam Poorly built and nourished slightly wasted male in no acute distress but chronically ill looking HEENT examination mild pallor Lungs clear Cardiovascular unremarkable Abdomen is soft fullness large this fullness in the right upper quadrant and epigastrium No rigidity no guarding Labs/Diagnostic Data Labs Test 02/23/24 14:36 02/23/24 09:44 02/23/24 08:56 Range/Units Urine Color Light-yellow Yellow Urine Clarity Clear Clear Urine pH 6.5 5.0-9.0 Urine Specific [place] 1.014 1.001-1.035 Urine Protein Trace H Negative Urine Ketones Negative Negative Urine Blood Negative Negative /uL Urine Nitrite Negative Negative Urine Bilirubin Negative Negative Urine Urobilinogen Normal Negative mg/dL Urine Leukocyte Esterase Negative Negative /uL Urine RBC 8 0 - 3 /hpf Urine WBC 7 0 - 3 /hpf Urine Squamous Epithelial Cells None seen <5 /hpf Urine Bacteria Few H None Seen /hpf Urine Hyaline Casts Few 0 - 2 /lpf Urine Yeast (Budding) Occasional None Seen /hpf Urine Glucose Normal Normal mg/dL Troponin I High Sensitivity 33 </=54 ng/L White Blood Count 15.7 H 4.4-10.8 10^3/uL Red Blood Count 4.84 4.5-5.90 10^6/uL Hemoglobin 14.9 13.5-17.5 g/dL Hematocrit 46.0 41.0-53.0 % Mean Corpuscular Volume 94.9 80.0-100.0 fL Mean Corpuscular Hemoglobin 30.9 28.0-32.0 pg Mean Corpuscular Hemoglobin Concent 32.5 32.0-36.0 g/dL Red Cell Distribution Width 18.1 H 11.8-14.3 % Platelet Count 253 140-450 10^3/uL Mean Platelet Volume 7.6 6.9-10.8 fL Neutrophils (%) (Auto) 37.0-80.0 % Lymphocytes (%) (Auto) 10.0-50.0 % Monocytes (%) (Auto) 0.0-12.0 % Basophils (%) (Auto) 0.0-2.0 % Neutrophils # (Auto) 1.6-8.6 10 ^3/uL Lymphocytes # (Auto) 0.4-5.4 10 ^3/uL Monocytes # (Auto) 0-1.3 10 ^3/uL Differential Total Cells Counted 100.0 100 Neutrophils % (Manual) 77 37.0-80.0 Band Neutrophils % (Manual) 0 Lymphocytes % (Manual) 11 10.0-50.0 Monocytes % (Manual) 12 0-12 Eosinophils % (Manual) 0 0-7 Basophils % (Manual) 0 0.0-2.0 Metamyelocytes % (manual) 0 Myelocytes % (Manual) 0 Promyelocytes % (Manual) 0 Blast Cells % (Manual) 0 Reactive Lymphocytes 0 Platelet Estimate Adequate Sodium Level 139 136-145 mmol/L Potassium Level 5.1 3.5-5.1 mmol/L Chloride Level 92 L 98-107 mmol/L Carbon Dioxide Level 37 H 20-31 mmol/L Anion Gap 10 5-15 Blood Urea Nitrogen 35 H 9-23 mg/dL Creatinine 1.26 0.700-1.30 mg/dL Glomerular Filtration Rate Calc 58 >90 mL/min BUN/Creatinine Ratio 27.8 H 10.0-20.0 Serum Glucose 119 H 74-106 mg/dL Calcium Level 11.9 H 8.7-10.4 mg/dL Total Bilirubin 0.4 0.2-1.0 mg/dL Aspartate Amino Transferase (AST) 80 H 13-40 U/L Alanine Aminotransferase (ALT) 38 7-40 U/L Alkaline Phosphatase 189 H 46-116 U/L Total Protein 7.4 5.7-8.2 g/dL Albumin 4.9 H 3.2-4.8 g/dL Assessment 78-year-old with a history of esophageal cancer with possible Mets to the liver contributing chemotherapy at [facility] came in with abdominal pain nausea throat pain hemoptysis and possible hematemesis some brought discolored fluid. Patient was found to have a hemoglobin of 14.9 white count is 15.7 Clinical impression esophageal cancer with liver Mets on chemotherapy at [facility] Patient is showing esophageal thickening and liver mass Possible GI bleeding from esophageal mass lesion or esophagitis or gastritis Plan/Recommendation Follow hemoglobin closely May need further evaluation in a referral center like [facility] especially with a history of esophageal cancer with chemotherapy effect in the liver Mets For the time being she has no heat not a candidate here for EGD evaluation especially with a history of esophageal cancer and status post therapy We will recommend conservative treatment for now follow the hemoglobin closely NPO PPIs and see the response If bleeding is severe we will recommend Radiology consult for possible angiogram and embolization Overall prognosis guarded Thank you Dr. Hernandez Plan discussed with: Other BALWINDER HERNANDEZ MD Feb 23, 2024 18:34
[2024-02-23 19:25] VITALS: PULSE 72; RESP 18; O2SAT 93
[2024-02-23] MEDS: ONDANSETRON HCL 4 MG/2 ML VIAL IV PRN (21:26)
[2024-02-23] MEDS: OCTREOTIDE ACETATE 500 MCG/ML VL ONE (21:52)
[2024-02-24 06:15] LABS: Hematocrit 39.1 % (41.0-53.0); Mean Corpuscular Hemoglobin 31.7 pg (28.0-32.0); Mean Corpuscular Hgb Conc. 33.3 g/dL (32.0-36.0); Mean Corpuscular Volume 95.4 fL (80.0-100.0); Platelet Count (auto) 185 10^3/uL (140-450); Red Cell Distribution Width 17.9 % (11.8-14.3); White Blood Cell 13.5 10^3/uL (4.4-10.8)
[2024-02-24 06:37] LABS: Alanine Aminotransferase 37 U/L (7-40); Albumin 4.1 g/dL (3.2-4.8); Anion Gap 6 (5-15); BUN/Creatinine Ratio 27.1 (10.0-20.0); Calcium 10.1 mg/dL (8.7-10.4); Potassium 4.2 mmol/L (3.5-5.1); Sodium 140 mmol/L (136-145)
[2024-02-24 06:38] LABS: Bilirubin, Total 0.4 mg/dL (0.2-1.0); Total Protein 6.4 g/dL (5.7-8.2)
[2024-02-24 06:44] LABS: Alkaline Phosphatase 150 U/L (46-116); Aspartate Aminotransferase 51 U/L (13-40); Band Neutrophils % (manual) 0; Basophils % (manual) 0 (0.0-2.0); Blast Cells 0; Blood Urea Nitrogen 32 mg/dL (9-23); Carbon Dioxide 37 mmol/L (20-31); Chloride 97 mmol/L (98-107); Eosinophils % (manual) 0 (0-7); Glucose 113 mg/dL (74-106); Metamyelocytes % 0; Myelocytes % 0; Promyelocytes % 0; Reactive Lymphocytes 0
[2024-02-24 07:35] VITALS: PULSE 62; RESP 13; O2SAT 99
[2024-02-24 08:28] LABS: Lymphocytes % (manual) 6 (10.0-50.0); Monocytes % (manual) 9 (0-12); Platelet Estimate Adequate
[2024-02-24] MEDS: cefTRIAXone 1GM/50ML D5W 50 ML IV SCH (09:15)
[2024-02-24 09:59] LABS: Magnesium 1.9 mg/dL (1.6-2.6)
[2024-02-24 10:01] LABS: Phosphorus 4.1 mg/dL (2.4-5.1)
[2024-02-24 10:03] LABS: INR 1.11 (0.9-1.15); Partial Thromboplastin Time 25.4 SEC (24.5-34.5); Prothrombin Time 11.7 sec (9.3-11.8)
[2024-02-24 11:50] LABS: Amphetamine Screen, Urine Neg (NEGATIVE)
[2024-02-24 11:51] LABS: Barbiturate Scree,Urine Neg (NEGATIVE); Benzodiazephine Screen, Urine Neg (NEGATIVE); Cannabinoid Screen, Urine Neg (NEGATIVE); Cocaine Screen, Urine Neg (NEGATIVE); Opiate Scree,Urine Neg (NEGATIVE); Phencyclidine Screen, Urine Neg (NEGATIVE)
[2024-02-24 14:01] LABS: Lactic Acid w/Reflex 2.6 mmol/L (0.4-2.0)
[2024-02-24 14:05] LABS: COVID19 ANTIGEN SOFIA FIA NEGATIVE (NEGATIVE)
[2024-02-24 14:36] VITALS: BP 124/54; PULSE 62; RESP 19; TEMP 98.1; O2SAT 94
--- NOTE | 2024-02-24 14:46 | DVHDSRES ---
Discharge Summary Date of Admission Resident Creating Document: DAMION KAPLAN RESIDENT Feb 23, 2024 at 12:40 Date of Discharge: Feb 24, 2024 Admitting Diagnosis Hemoptysis/hematemesis Labs/Diagnostic Data: Laboratory Results Test 02/24/24 13:11 02/24/24 12:45 02/24/24 12:39 02/24/24 11:00 SARS-CoV-2 Antigen (Rapid) Negative (NEGATIVE) POC Glucose 141 mg/dl (70-106) Lactic Acid Level 2.6 mmol/L (0.4-2.0) Ammonia < 10 umol/L (11-32) Urine Opiates Screen Neg (NEGATIVE) Urine Fentanyl Screen Neg (NEGATIVE) Urine Barbiturates Screen Neg (NEGATIVE) Urine Phencyclidine Screen Neg (NEGATIVE) Urine Amphetamines Screen Neg (NEGATIVE) Urine Benzodiazepines Screen Neg (NEGATIVE) Urine Cocaine Screen Neg (NEGATIVE) Urine Cannabinoids Screen Neg (NEGATIVE) Test 02/24/24 05:54 02/23/24 14:36 02/23/24 09:44 White Blood Count 13.5 10^3/uL (4.4-10.8) Red Blood Count 4.10 10^6/uL (4.5-5.90) Hemoglobin 13.0 g/dL (13.5-17.5) Hematocrit 39.1 % (41.0-53.0) Mean Corpuscular Volume 95.4 fL (80.0-100.0) Mean Corpuscular Hemoglobin 31.7 pg (28.0-32.0) Mean Corpuscular Hemoglobin Concent 33.3 g/dL (32.0-36.0) Red Cell Distribution Width 17.9 % (11.8-14.3) Platelet Count 185 10^3/uL (140-450) Mean Platelet Volume 7.3 fL (6.9-10.8) Neutrophils (%) (Auto) % (37.0-80.0) Lymphocytes (%) (Auto) % (10.0-50.0) Monocytes (%) (Auto) % (0.0-12.0) Basophils (%) (Auto) % (0.0-2.0) Neutrophils # (Auto) 10 ^3/uL (1.6-8.6) Lymphocytes # (Auto) 10 ^3/uL (0.4-5.4) Monocytes # (Auto) 10 ^3/uL (0-1.3) Differential Total Cells Counted 100.0 (100) Neutrophils % (Manual) 85 (37.0-80.0) Band Neutrophils % (Manual) 0 Lymphocytes % (Manual) 6 (10.0-50.0) Monocytes % (Manual) 9 (0-12) Eosinophils % (Manual) 0 (0-7) Basophils % (Manual) 0 (0.0-2.0) Metamyelocytes % (manual) 0 Myelocytes % (Manual) 0 Promyelocytes % (Manual) 0 Blast Cells % (Manual) 0 Reactive Lymphocytes 0 Platelet Estimate Adequate Prothrombin Time 11.7 sec (9.3-11.8) Prothrombin Time INR 1.11 (0.9-1.15) Activated Partial Thromboplast Time 25.4 SEC (24.5-34.5) Sodium Level 140 mmol/L (136-145) Potassium Level 4.2 mmol/L (3.5-5.1) Chloride Level 97 mmol/L (98-107) Carbon Dioxide Level 37 mmol/L (20-31) Anion Gap 6 (5-15) Blood Urea Nitrogen 32 mg/dL (9-23) Creatinine 1.18 mg/dL (0.700-1.30) Glomerular Filtration Rate Calc 63 mL/min (>90) BUN/Creatinine Ratio 27.1 (10.0-20.0) Serum Glucose 113 mg/dL (74-106) Hemoglobin A1c 5.6 % A1C (<5.7) Calcium Level 10.1 mg/dL (8.7-10.4) Phosphorus Level 4.1 mg/dL (2.4-5.1) Magnesium Level 1.9 mg/dL (1.6-2.6) Total Bilirubin 0.4 mg/dL (0.2-1.0) Aspartate Amino Transferase (AST) 51 U/L (13-40) Alanine Aminotransferase (ALT) 37 U/L (7-40) Alkaline Phosphatase 150 U/L (46-116) Total Protein 6.4 g/dL (5.7-8.2) Albumin 4.1 g/dL (3.2-4.8) Thyroid Stimulating Hormone (TSH) 0.54 uIU/mL (0.55-4.78) Urine Color Light-yellow (Yellow) Urine Clarity Clear (Clear) Urine pH 6.5 (5.0-9.0) Urine Specific [place] 1.014 (1.001-1.035) Urine Protein Trace (Negative) Urine Ketones Negative (Negative) Urine Blood Negative /uL (Negative) Urine Nitrite Negative (Negative) Urine Bilirubin Negative (Negative) Urine Urobilinogen Normal mg/dL (Negative) Urine Leukocyte Esterase Negative /uL (Negative) Urine RBC 8 /hpf (0 - 3) Urine WBC 7 /hpf (0 - 3) Urine Squamous Epithelial Cells None seen /hpf (<5) Urine Bacteria Few /hpf (None Seen) Urine Hyaline Casts Few /lpf (0 - 2) Urine Yeast (Budding) Occasional /hpf (None Urine Glucose Normal mg/dL (Normal) Troponin I High Sensitivity 33 ng/L (</=54) Other Laboratory Tests 02/24/24 05:54 Brief Hx & Hospital Course: Martin Lopez is a 78-year-old male patient who presents to the ED with chief complaint of hemoptysis/hematemesis associated with nausea which started the day of his admission. Patient reports living in assisted living facility [place] ([facility]. Denies palpitation, syncope, chest pain, dyspnea, nausea, abdominal pain, diarrhea, constipation, unintentional weight loss, dysuria and motor or sensory deficits. Past medical history: Hypertension, diabetes, dyslipidemia, COPD on home O2 (3 liters/minute), diverticulosis with last flare of diverticulitis approximately five years ago, esophageal cancer with liver metastasis completing chemotherapy and radiotherapy sessions (patient follow at [facility]), coronary artery disease with HI status post PCI with stents placement (approximately two years ago), paroxysmal atrial fibrillation (chads Vasc 5/has bled 3) with amiodarone and without anticoagulation (was on Plavix), multiple UTIs, polyneuropathy. Patient had multiple right lower limb fractures, he is bed-bound. Surgical history: Appendicectomy, tonsillectomy, right hip replacement, PCI with stent placement approximately two years ago Family history: Noncontributory Social history: Lives in assisted living [facility] ([facility]). Denies current tobacco, alcohol and other drug abuse. Allergies: Lorazepam Home medication: Brief hospital course: Hemoptysis versus hematemesis in the setting of a patient with history of esophageal cancer with liver metastasis who underwent chemotherapy and radiotherapy, requiring on admission IV octreotide, IV pantoprazole, IV fluids and discontinuation of blood thinners. Completed abdomen and pelvis CT which evidence large irregular poorly enhancing mass in right hepatic lobe measuring approximately 11.6 cm (may be primary hepatic malignancy versus metastatic), [id number] size hiatal hernia with distal esophageal thickening, severe emphysematous changes of the lung, and diverticulosis. Evaluated by GI specialist recommending further evaluation in a referral center like [facility]. Courtroom Clerk involved for transferred to higher level of care, [facility]. Patient currently on IV pantoprazole and IV octreotide, in condition to be transferred to higher level of care for endoscopic evaluation. Was granted under optimal medical therapy, gave her advice on healthy lifestyle habits, and follow up as outpatient per higher level of care center once deemed adequate. Patient has poor prognosis DIAGNOSIS Probable upper GI bleed in setting of patient with esophageal cancer with liver metastasis -status post chemotherapy and radiotherapy Questionable hemoptysis Sepsis Bilateral renal cysts COPD no exacerbation Diabetes - controlled (hemoglobin A1c 5.6%) Dyslipidemia Hypertension Diverticulosis Bed-bound after mechanical fall with right lower limb fracture Paroxysmal atrial fibrillation secondary hypercoagulability state - not anticoagulated due to GI bleed, on amiodarone Coronary artery disease with history of HI status post PCI with stent placement Multiple UTIs Polyneuropathy Physical examination on the day of transfer/discharge to higher level of care Patient lying in bed, in no acute distress General: Lucid, cachectic afebrile, mucosae are moist Cardiovascular: Normal S1 and S2. No murmurs, gallops or rubs Respiratory: Normal ventilation mechanics. Clear lung sounds on auscultation Abdomen: Soft, nontender, no organomegaly, normal bowel sounds MSK/skin: Mobilizes 4 limbs, presents severe pain on right lower limb when moving. Skin is dry and warm. Neurological: Oriented in 3 spheres. No motor no sensitive deficits. Pupils are isocoric and reactive Goals of care discussed with patient for 20 minutes: Full code status Additional 66 minutes of critical care time Discussed plan with Dr. Rasmussen, patient, family ( Sylvie) and nurses. Courtroom Clerk consulted and arranged transfer to [facility]; peer to peer discussion about the patient's critical case was done Consults/Reason for consult GI for hemoptysis/hematemesis Operations or Procedures Abdomen and pelvis CT 1. Large irregular poorly enhancing mass in the right hepatic lobe measuring approximately 11.6 cm. This may represent primary hepatic malignancy versus metastatic disease. 2. [id number] size hiatal hernia. The distal esophageal wall appears thickened. Correlation with endoscopy findings is recommended. 3. Severe emphysematous changes of the lungs. There is no evidence of lung consolidation or pulmonary mass. 4. There is no evidence of metastatic lymphadenopathy in the chest, abdomen and pelvis. 5. Distal colon diverticulosis. Condition at Discharge: Poor Final Diagnosis/Problems List Probable upper GI bleed in setting of patient with esophageal cancer with liver metastasis -status post chemotherapy and radiotherapy Questionable hemoptysis Sepsis Bilateral renal cysts COPD no exacerbation Diabetes - controlled (hemoglobin A1c 5.6%) Dyslipidemia Hypertension Diverticulosis Bed-bound after mechanical fall with right lower limb fracture Paroxysmal atrial fibrillation (chads Vasc 5/has bled 3) secondary hypercoagulability state - not anticoagulated, on amiodarone Coronary artery disease with history of HI status post PCI with stent placement Multiple UTIs Polyneuropathy Discharge Disposition: Acute Care Facility ([facility]) SNF Discharge Will this Physician continue t: No Discharge Instruct/Medications Diet: See Comment Diet comment: NPO Activity: Bed rest Follow Up/Referral: Per HLOC Medications: Per transfer paperwork (avoid blood thinners) Discharge Statement: "Patient was advised to return to the ER or call 911 if any headaches, dizziness, shortness of breath, chest pain, abdominal pain, bleeding, fevers, or worsening of medical condition. Patient was counseled about treatment plan, medications, possible side effects, patientverbalized understanding. All questions were answered to the best of my ability. This discharge took greater then 30 minutes in planning, reviewing documentation, counseling the patient, and discussing with other team members." ASSESSMENT ASSESSMENT Assessment Hemoptysis/Hematemesis Addendum Addendum Addendum I was physically present for the may portions of the service provided to patient by THE RESIDENT. I have reviewed the documentation, discussed the case with resident and agree with the resident's documentation except as noted. Also the patient's clinical case was discussed with the patient's nurse. This medical document was created using an electronic medical record system with computerized dictation system. Although this document has been carefully reviewed, there might still be some phonetic and typographical errors. These areas are purely typographical due to imperfections of the software programs, and do not reflect any compromise in the patient's medical care. Late signature. Date of Service: Feb 24, 2024 Billing Provider: TOMMY RASMUSSEN MD Common Visit Codes: 76188-PJP/OBS DISCH DAY >30min, 55838-[id number] CARE 30-74 MIN (66 minutes) Secondary Visit Codes: 46637-LCADHOXA CARE PLAN 30 MINUTES (20 minutes) DAMION KAPLAN Feb 24, 2024 14:46 TOMMY RASMUSSEN MD Feb 26, 2024 10:30
[2024-02-24 14:54] VITALS: BP 124/54; PULSE 62; RESP 16; TEMP 98.1; O2SAT 94
[2024-02-24 17:00] VITALS: BP 129/56; PULSE 65; RESP 19; TEMP 98.4; O2SAT 95
--- NOTE | 2024-02-24 17:20 | ECG ---
[facility] Test Date: 2024-02-23 Test Time: 08:18:25 Pat Name: GIOVANI DICKERSON Department: er Room: 0236T A Gender: M [employer] In[employer]: lovely : 1945 Requested By: CAESAR VAZQUEZ Order Number: [id number] Reading MD: Kaz Martinez Measurements Intervals Golden Rate: 93 P: 0 AR: 0 QRS: -5 QRSD: 80 T: 83 QT: 459 QTc: 572 Interpretive Statements Atrial fibrillation Repol abnrm, severe global ischemia (LM/MVD) Prolonged QT interval Electronically Signed On 02-29-2024 14:50:55 PST by Kaz Martinez Please click the below link to view image of tracing.
[2024-02-24] MEDS ORDERED: SODIUM CHLORIDE 0.9% 1,000 ML IV ONE (19:00)
[2024-02-24 20:00] VITALS: PULSE 64
[2024-02-24 21:00] VITALS: BP 137/46; PULSE 64; RESP 16; TEMP 98.1; O2SAT 93
== END 2024-02-25 00:13 | disposition short-term general hospital (02) | DRG 872 ==
LOC: EDBD 07:02 → ER 07:02 → EDUNIT# 07:02 → TELE 12:40 → TELE-EAST 02-24 14:17
PROVIDERS: ADMIT Nurse Practitioner Family; ATTEND Nurse Practitioner Family
DX: A41.9 Sepsis, unspecified organism (principal); R04.2 Hemoptysis; N39.0 Urinary tract infection, site not specified; D68.59 Other primary thrombophilia; J96.10 Chronic respiratory failure, unspecified whether with hypoxia or hypercapnia; E78.5 Hyperlipidemia, unspecified; Z20.822 Contact with and (suspected) exposure to COVID-19; K57.30 Diverticulosis of large intestine without perforation or abscess without bleeding; J44.9 Chronic obstructive pulmonary disease, unspecified; N28.1 Cyst of kidney, acquired; I10 Essential (primary) hypertension; I25.10 Atherosclerotic heart disease of native coronary artery without angina pectoris; E11.42 Type 2 diabetes mellitus with diabetic polyneuropathy; I48.0 Paroxysmal atrial fibrillation; Z99.81 Dependence on supplemental oxygen; Z82.49 Family history of ischemic heart disease and other diseases of the circulatory system; Z82.3 Family history of stroke; Z85.01 Personal history of malignant neoplasm of esophagus; I25.2 Old myocardial infarction; Z95.5 Presence of coronary angioplasty implant and graft; Z74.01 Bed confinement status; Z85.05 Personal history of malignant neoplasm of liver; Z87.891 Personal history of nicotine dependence; Z79.4 Long term (current) use of insulin; Z79.899 Other long term (current) drug therapy
CPT/HCPCS: 36415; 51702; 71260; 74177; 80053; 80307; 81001; 82140; 82306; 82607; 82962; 83036; 83605; 83735; 84100; 84443; 84484; 85007; 85027; 85610; 85730; 87426; 93005; 96365; 96366; 96375; 96376; G0378; J1815; J2405; J2470